=== PATIENT | male | born 1970 | race Caucasian/White ===

== ENCOUNTER 2016-07-30 19:58 | Emergency (ER) | payer BC ==
[~2016-07-30] VITALS: Ht 170.2 cm; Wt 65.8 kg
[~2016-07-30 19:58] MED LIST: FENT25DI22 TD; PERCOCET PO
[2016-07-30] MEDS ORDERED: NS 1,000 ML IV ONE (21:00)
[2016-07-30 21:30] VITALS: BP 140/97
--- NOTE | 2016-08-05 07:11 | ECGEPIP ---
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
== END 2016-07-30 21:47 | disposition home or self-care (01) ==
LOC: EDBD 19:58 → M ED 20:43
DX: Z04.8 Encounter for examination and observation for other specified reasons (principal)

== ENCOUNTER 2016-08-04 12:13 | Emergency (ER) | payer BC ==
[~2016-08-04] VITALS: Ht 170.2 cm; Wt 65.8 kg
[2016-08-04] MEDS ORDERED: ASPIRIN 81 MG CHEW TABLET PO ONE (14:15)
--- NOTE | 2016-08-04 14:46 | REP ---
Chest two views HISTORY: Chest pain Comparison: 05/11/1949 The lungs are clear. The heart is normal in size. The pulmonary vasculature is normal in appearance. The bony structure is intact. IMPRESSION: No acute disease. Signed by Mehul Kaur MD 08/04/2016 02:38 P
[2016-08-04 14:47] LABS: ALBUMIN 4.1 GM/DL (3.2-5.2); ALBUMIN/GLOBULIN RATIO 1.37 (1.00-1.93); ALKALINE PHOSPHATASE 53 U/L (45-117); ALT/SGPT 16 U/L (12-78); ANION GAP 7 MEQ/L (8-16); AST/SGOT 16 U/L (15-37); BILIRUBIN,DIRECT 0.3 MG/DL (0.0-0.2); BILIRUBIN,TOTAL 1.2 MG/DL (0.2-1.0); BLOOD UREA NITROGEN 13 MG/DL (7-18); CARBON DIOXIDE LEVEL 26 MEQ/L (21-32); CHLORIDE LEVEL 107 MEQ/L (98-107); GLOMERULAR FILTRATION RATE > 60.0 (>60); GLUCOSE, FASTING 116 MG/DL (70-105); POTASSIUM SERUM 3.8 MEQ/L (3.5-5.1); SODIUM LEVEL 140 MEQ/L (136-145); TOTAL PROTEIN 7.1 GM/DL (6.4-8.2)
[2016-08-04 15:20] LABS: BASO % 0.2 % (0.0-1.0); EOS % 0.3 % (0.0-3.0); LARGE UNSTAINED CELL # 0.1 K/mm3 (0.0-0.4); LARGE UNSTAINED CELL % 1.7 % (0.0-4.0); LYMPH # 0.9 K/mm3 (1.5-4.5); LYMPH % 17.4 % (24.0-44.0); MEAN CORPUSCULAR HEMOGLOBIN 31.6 pg (27.0-33.0); MEAN CORPUSCULAR HGB CONC 33.6 g/dl (32.0-36.5); MONO # 0.2 K/mm3 (0.0-0.8); MONO % 4.2 % (0.0-5.0); NEUTROPHILS % 76.2 % (36.0-66.0); PLATELET COUNT, AUTOMATED 197 k/mm3 (150-450); WHITE BLOOD COUNT 5.2 K/mm3 (4.0-10.0)
[2016-08-04] MEDS: NITROGLYCERIN 0.4 MG SUBL TABLET SL PRN ×2 (15:23→15:32)
[2016-08-04 15:32] VITALS: BP 129/75
[2016-08-04 20:18] VITALS: BP 114/79
--- NOTE | 2016-08-05 07:19 | ECGEPIP ---
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
--- NOTE | 2016-08-06 20:36 | ECGEPIP ---
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
== END 2016-08-04 20:20 | disposition home or self-care (01) ==
LOC: M ED 14:35
DX: R07.9 Chest pain, unspecified (principal)

== ENCOUNTER → 2017-05-07 | Outpatient (REF) | payer BC | LOC: M LAB REF 17:09 | PROVIDERS: ATTEND Physician Assistant Medical | DX: R50.9 Fever, unspecified (principal) ==

== ENCOUNTER → 2018-02-02 | Outpatient (REF) | payer BC ==
[2018-02-02 18:46] LABS: INFLUENZA A AMPLIFICATION NEGATIVE (NEGATIVE); INFLUENZA B AMPLIFICATION NEGATIVE (NEGATIVE)
== END ==
LOC: M LAB REF 17:14
DX: J11.1 Influenza due to unidentified influenza virus with other respiratory manifestations (principal)
CPT/HCPCS: 87502

== ENCOUNTER → 2018-02-22 | Outpatient (REF) | payer BC | LOC: M SFHCCLAY 14:31 | DX: Z13.220 Encounter for screening for lipoid disorders (principal); Z82.49 Family history of ischemic heart disease and other diseases of the circulatory system ==

== ENCOUNTER → 2018-03-06 | Outpatient (REF) | payer BC ==
[2018-03-06 18:45] LABS: ALBUMIN/GLOBULIN RATIO 1.14 (1.00-1.93); ALKALINE PHOSPHATASE 57 U/L (45-117); ALT/SGPT 23 U/L (12-78); ANION GAP 7 MEQ/L (8-16); AST/SGOT 16 U/L (7-37); BILIRUBIN,TOTAL 1.3 MG/DL (0.2-1.0); BLOOD UREA NITROGEN 17 MG/DL (7-18); CALCIUM LEVEL 8.5 MG/DL (8.5-10.1); CARBON DIOXIDE LEVEL 30 MEQ/L (21-32); CHLORIDE LEVEL 103 MEQ/L (98-107); CHOLESTEROL LEVEL 187 MG/DL (<200); CREATININE FOR GFR 0.92 MG/DL (0.70-1.30); GLOMERULAR FILTRATION RATE > 60.0 (>60); GLUCOSE, FASTING 86 MG/DL (70-100); HDL CHOLESTEROL 68 MG/DL (>40); LDL CHOLESTEROL 106 MG/DL (<100); NON-HDL-C 119 MG/DL; POTASSIUM SERUM 5.1 MEQ/L (3.5-5.1); SODIUM LEVEL 140 MEQ/L (136-145); TOTAL PROTEIN 7.5 GM/DL (6.4-8.2); TRIGLYCERIDES LEVEL 64 MG/DL (<150)
== END ==
LOC: M SFHCCLAY 11:02
DX: Z13.220 Encounter for screening for lipoid disorders (principal); Z82.49 Family history of ischemic heart disease and other diseases of the circulatory system
CPT/HCPCS: 80053

== ENCOUNTER → 2018-03-11 | Outpatient (CLI) | payer BC | LOC: M RAD 16:57 | DX: M25.562 Pain in left knee (principal) | CPT/HCPCS: 73564 ==

== ENCOUNTER → 2018-08-17 | Outpatient (CLI) | payer BC ==
[~2018-08-17] MED LIST changes: +OXYC1TAB23 PO; -PERCOCET PO
--- NOTE | 2018-08-17 16:30 | REP ---
Clinical: Lumbar. Technique: AP, lateral, bilateral oblique and coned-down views of the lumbosacral spine. Findings: Moderate multilevel degenerative changes include endplate sclerosis, osteophytosis, disc space narrowing and hypertrophic facet changes along with mild chronic dextroconvex scoliosis. No acute fracture / compression injury appreciated. Mild retrolisthesis at the L3-4 level of approximately 6 mm cannot be excluded. Impression: Moderate multilevel degenerative changes as noted above.
== END ==
LOC: M CLY 15:55
PROVIDERS: ATTEND Family Medicine
DX: M51.36 Other intervertebral disc degeneration, lumbar region (principal)

== ENCOUNTER 2019-02-04 10:04 | Emergency (ER) | payer BC ==
[~2019-02-04] VITALS: Ht 170.2 cm; Wt 64.8 kg
[2019-02-04] MEDS ORDERED: AMLO5TAB6 (10:43)
[2019-02-04] MEDS ORDERED: GABA-845 (10:43)
[2019-02-04 11:08] LABS: BASO % 0.3 % (0.0-1.0); EOS % 0.3 % (0.0-3.0); HEMATOCRIT 40.7 % (42.0-52.0); HEMOGLOBIN 13.9 g/dl (13.5-17.5); LYMPH # 1.3 10^3/uL (1.5-5.0); LYMPH % 22.3 % (24.0-44.0); MEAN CORPUSCULAR HEMOGLOBIN 33.2 pg (27.0-33.0); MEAN CORPUSCULAR HGB CONC 34.2 g/dl (32.0-36.5); MEAN CORPUSCULAR VOLUME 97.1 fl (80.0-96.0); MONO # 0.5 10^3/uL (0.0-0.8); MONO % 8.7 % (0.0-5.0); NEUTROPHILS % 68.2 % (36.0-66.0); PLATELET COUNT, AUTOMATED 258 10^3/uL (150-450); RED BLOOD COUNT 4.19 10^6/uL (4.30-6.10); WHITE BLOOD COUNT 5.9 10^3/uL (4.0-10.0)
[2019-02-04] MEDS ORDERED: MECLIZINE 25 MG TABLET PO ONE (11:15)
[2019-02-04 11:25] LABS: ALBUMIN 3.8 GM/DL (3.2-5.2); ALT/SGPT 24 U/L (12-78); BILIRUBIN,TOTAL 1.4 MG/DL (0.2-1.0); BLOOD UREA NITROGEN 14 MG/DL (7-18); CALCIUM LEVEL 9.1 MG/DL (8.5-10.1); CARBON DIOXIDE LEVEL 28 MEQ/L (21-32); CHLORIDE LEVEL 104 MEQ/L (98-107); CREATININE FOR GFR 0.79 MG/DL (0.70-1.30); GLOMERULAR FILTRATION RATE > 60.0 (>60); GLUCOSE, FASTING 100 MG/DL (70-100); POTASSIUM SERUM 3.9 MEQ/L (3.5-5.1); SODIUM LEVEL 138 MEQ/L (136-145); TOTAL PROTEIN 7.6 GM/DL (6.4-8.2)
--- NOTE | 2019-02-04 11:47 | REP ---
CT BRAIN WITHOUT IV CONTRAST: CT brain performed without IV contrast. Ventricles are normal in size and position with no midline shift or mass effect. Garnett/white differentiation is well maintained. There is no acute intracranial hemorrhage or extra-axial fluid collection. Bone window examination is unremarkable. Visualized paranasal sinuses are clear as are the visualized mastoid air cells. IMPRESSION: Negative noncontrast CT brain. Electronically Signed by Amos Garnett MD 02/05/2019 05:53 P
--- NOTE | 2019-02-04 15:51 | ECGEPIP ---
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
--- NOTE | 2019-02-04 16:06 | REPVR ---
PROCEDURE INFORMATION: Exam: MR Head Without Contrast Exam date and time: 02/04/2019 3:30 PM Clinical history: 48 years old, male; Dizziness; Additional info: Dizziness; Posterior headache TECHNIQUE: Imaging protocol: MR of the head without contrast. COMPARISON: CT Head without contrast 02/04/2019 11:05 AM FINDINGS: Brain: Normal. No acute infarct. No hemorrhage. No significant white matter disease. No edema. Ventricles: Normal. No ventriculomegaly. Bones/joints: Unremarkable. Soft tissues: Unremarkable. Sinuses: Normal as visualized. No acute sinusitis. Mastoid air cells: Normal as visualized. No mastoid effusion. Orbits: Unremarkable. IMPRESSION: No acute intracranial pathology. Electronically signed by: Obdulio Lane On 02/04/2019 16:06:02 PM
--- NOTE | 2019-02-04 16:09 | REPVR ---
PROCEDURE INFORMATION: Exam: MR Angiogram Head Without Contrast, Arteries Exam date and time: 02/04/2019 3:30 PM Clinical history: 48 years old, male; Dizziness and giddiness; Additional info: Dizziness; Posterior headache TECHNIQUE: Imaging protocol: MR angiogram head without contrast. Exam focused on the arteries. COMPARISON: CT Head without contrast 02/04/2019 11:05 AM FINDINGS: Right internal carotid artery: Unremarkable. Intracranial segment is patent with no significant stenosis. No aneurysm. Right anterior cerebral artery: Unremarkable. No occlusion or significant stenosis. No aneurysm. Right middle cerebral artery: Unremarkable. No occlusion or significant stenosis. No aneurysm. Right posterior cerebral artery: Unremarkable. No occlusion or significant stenosis. No aneurysm. Right vertebral artery: Unremarkable. No occlusion or significant stenosis. No aneurysm. Left internal carotid artery: Unremarkable. Intracranial segment is patent with no significant stenosis. No aneurysm. Left anterior cerebral artery: Unremarkable. No occlusion or significant stenosis. No aneurysm. Left middle cerebral artery: Unremarkable. No occlusion or significant stenosis. No aneurysm. Left posterior cerebral artery: Unremarkable. No occlusion or significant stenosis. No aneurysm. Left vertebral artery: Unremarkable. No occlusion or significant stenosis. No aneurysm. Basilar artery: Unremarkable. No occlusion or significant stenosis. No aneurysm. IMPRESSION: No acute findings. Electronically signed by: Obdulio Lane On 02/04/2019 16:08:43 PM
[2019-02-04] MEDS ORDERED: ZYRTTAB8 PO (16:31)
[2019-02-04] MEDS ORDERED: FLON1SPR NARES (16:31)
[2019-02-04] MEDS ORDERED: DEBR6.5S4 AD (16:31)
[2019-02-04 16:36] VITALS: BP 128/79
== END 2019-02-04 16:50 | disposition home or self-care (01) ==
LOC: M ED 10:04
DX: H65.01 Acute serous otitis media, right ear (principal); H81.391 Other peripheral vertigo, right ear; H61.21 Impacted cerumen, right ear; I10 Essential (primary) hypertension; Z79.899 Other long term (current) drug therapy

== ENCOUNTER → 2019-05-03 | Outpatient (CLI) | payer BC ==
[~2019-05-03] MED LIST changes: +AMLO5TAB6; +DEBR6.5S4 AD; +FLON1SPR NARES; +GABA-845; +ZYRTTAB8 PO
--- NOTE | 2019-05-16 01:20 | ECWPNPC ---
PATIENT NAME: MAXIME MCKEON : 1970 GENDER: MALE VISIT DATE: 05/03/2019 DISCHARGE DATE: 05/03/19 1446 VISIT LOCKED DATE TIME: PHYSICIAN: FREDERICK SCHWARTZ RESOURCE: FREDERICK SCHWARTZ REASON FOR APPOINTMENT 1. 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 SURGICAL HISTORY UPPER LEFT LOBECTOMY 2010 COLLAPSED LUNG LEFT SIDE 2008 FAMILY HISTORY FATHER: MOTHER: ALIVE 70 YRS, BLADDER CANCER, EMPHYSEMA, DIAGNOSED WITH HYPERTENSION, OTHER MALIGNANT NEOPLASM OF UNSPECIFIED SITE SIBLINGS: ALIVE SON(S): ALIVE DAUGHTER(S): ALIVE PATERNAL GRAND FATHER: PATERNAL GRAND MOTHER: MATERNAL GRAND FATHER: , OTHER MALIGNANT NEOPLASM OF UNSPECIFIED SITE MATERNAL GRAND MOTHER: , UNSPECIFIED HEART DISEASE 2 BROTHER(S) - HEALTHY. 3 SON(S) , 2 DAUGHTER(S) - HEALTHY. FATHER WHEN PATIENT WAS 3: MVA: HIT BY TRAIN.\\\\NCOUSIN\\\\\\'S DAUGHTER: COLON CANCER: DIAGNOSED AT AGE 24MOM WITH BLADDER CANCER. SOCIAL HISTORY GENERAL: TOBACCO USE ARE YOU A:FORMER SMOKER QUIT IN 2008 HOW LONG HAS IT BEEN SINCE YOU LAST SMOKED?5-10 YEARS VAPORNO E-CIGARETTENO HIV / HEP-C SCREENING HIV TEST OFFERED TO PATIENT:YES DATE OFFERED:07/21/2018 TEST ACCEPTED:NO HEP-C TEST OFFERED TO PATIENT:YES DATE OFFERED:07/21/2018 REASON:PATIENT DECLINED -BLOOD DONOR-ALREADY TESTED TEST ACCEPTED:NO REASON:PATIENT DECLINED -BLOOD DONOR-ALREADY TESTED BROCHURE PROVIDED TO PATIENTNO OTHERS AT HOME: FATHER, MOTHER, CHILD, OTHER NON-RELATIVE. EDUCATION LEVEL OF EDUCATION:FINISHED HIGH SCHOOL DIET: REGULAR. LANGUAGE LANGUAGES SPOKEN:[place]OV[place] DOMESTIC VIOLENCE DO YOU FEEL SAFE IN YOUR ENVIRONMENT?YES RECREATIONAL DRUG USE DRUG USE?NO EXERCISE: NO REGULAR EXERCISE. LEARNING BARRIERS / SPECIAL NEEDS CHANGE FROM LAST VISIT?NO BARRIERS TO LEARNING?NO HEARING IMPAIRED?NO VISION IMPAIRED?YES :CORRECTIVE LENSES -READERS COGNITIVELY IMPAIRED?NO READINESS TO LEARN?YES LEARNING PREFERENCES?NO LEARNING CAPABILITIES PRESENT?YES EMOTIONAL BARRIERS?NO SPECIAL DEVICES?NO VOICE INTERCEPT TECHNICIAN NEEDED?NO PAIN CLINIC PFS, CLERGY, PUBLIC HEALTH REFERRALS HAS THE PATIENT BEEN EDUCATED REGARDING HIS/HER PLAN OF CARE?YES HAS THE PATIENT BEEN EDUCATED REGARDING PAIN, THE RISK FOR PAIN, THE IMPORTANCE OF EFFECTIVE PAIN MANAGEMENT, AND THE PAIN ASSESSMENT PROCESS?YES LATEX QUESTIONNAIRE LATEX ALLERGY : HAVE YOU EVER DEVELOPED ANY TYPE OF REACTION AFTER HANDLING LATEX PRODUCTS SUCH RUBBER GLOVES, CONDOMS, DIAPHRAGMS, BALLOONS, SOCKS, OR UNDERWEAR?NO LATEX ALLERGY : HAVE YOU EVER DEVELOPED ANY TYPE OF REACTION DURING OR AFTER DENTAL APPOINTMENT, VAGINAL/RECTAL EXAMINATION, SURGICAL PROCEDURE, OR ANY OTHER EXPOSURE?NO LATEX RISK : HAVE YOU EVER HAD ANY DIFFICULTY BREATHING OR HIVES AFTER EATING OR HANDLING ANY FRUITS, OR VEGETABLES; SUCH KIWI, BANANAS, STONE FRUITS, OR CHESTNUTSNO LATEX RISK : DO YOU HAVE A PREVIOUS PERSONAL HISTORY OF MORE THAN NINE SURGERIES, SPINA BIFIDA, OR REPEATED CATHERIZATIONS? NO LATEX RISK : ARE YOU FREQUENTLY EXPOSED TO LATEX PRODUCTS IN YOUR OCCUPATION?NO DATE ASKED : 05/02/2019 CAFFEINE CAFFEINE USE?YES HOW OFTEN AND HOW MUCH? -1 1/2 CUPS COFFEE IN AM ADVANCE DIRECTIVE ADVANCE DIRECTIVE DISCUSSED WITH PATIENT:YES PT HAS NO ADVANCED DIRECTIVES, WOULD LIKE INFORMATION GIVEN TO HIM AT HIS APPOINTMENT. 05/02/19 [facility] JUDAISM [id number] CONFUCIANISM MARITAL STATUS: .. 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 SEXUAL HX HAD SEX IN THE LAST 12 MONTHS (VAGINAL, ORAL, OR ANAL)?YES WITHWOMEN ONLY PREVENTION STRATEGIES DISCUSSED:OTHER USE PROTECTION?NO HAVE YOU EVER HAD AN STD?NO NEW PATIENT CONSULT 05/02/19 LAS. HOSPITALIZATION/MAJOR DIAGNOSTIC PROCEDURE W/SURGERY SPINAL MENINGITIS AGE 22 REVIEW OF SYSTEMS REVIEWED BY: PROVIDER: FREDERICK SHAHID . CONSTITUTIONAL: ANY CHANGE IN YOUR MEDICAL CONDITION? NO . CHILLS NO . FEVER NO . INFECTION: DO YOU HAVE NEW INFECTIONS? NO . DO YOU HAVE HISTORY OF MRSA? NO . MUSCULOSKELETAL: ANY NEW PATTERNS OF PAIN OR NUMBNESS? NO . SYTEMIC LUPUS NO . GASTROENTEROLOGY: ANY NEW CHANGE IN BOWEL CONTROL? NO . BARRETTS ESOPHAGUS NO . CIRRHOSIS NO . HEPATITIS NO . LIVER FAILURE NO . ACID REFLUX NO . UNEXPLAINED WEIGHT LOSS NO . GENITOURINARY: ANY NEW CHANGE IN BLADDER CONTROL? NO . IS THERE A CHANCE YOU COULD BE ? NO . HEMATOLOGY/LYMPH: DO YOU TAKE ANY BLOOD THINNERS? (FOR EXAMPLE- COUMADIN, PLAVIX, AGGRENOX, PLATEL, PRADAXA, OR XARELTO) NO . WHEN WAS YOUR LAST DOSE? DATE: TIME: . LOW PLATELET COUNT NO . SICKLE CELL DISEASE NO . VON WILLIEBRANDS NO . FACTOR V LEIDEN NO . THALLASEMIA NO . ANEMIA NO . EASY BRUISING NO . NEUROLOGY: HAVE YOU FALLEN IN THE PAST 12 MONTHS? NO . ANY NEW EXTREMITY NUMBNESS OR WEAKNESS? NO . HEAD INJURY NO . DEMENTIA NO . CEREBRAL PALSY NO . MULTIPLE SCLEROSIS NO . DIZZINESS NO . HEADACHE NO . STROKES NO . VERTIGO NO . CARDIOLOGY: DO YOU HAVE A PACEMAKER OR DEFIBRILLATOR? NO . ANGINA NO . HEART ATTACK NO . HEART SURGERY NO . CONGESTIVE HEART FAILURE/FLUID OVERLOAD NO . CHEST PAIN NO . HIGH BLOOD PRESSURE ON MEDICATION(S) . IRREGULAR HEART BEAT NO . RESPIRATORY: HAVE YOU BEEN SICK IN THE PAST WEEK? NO . FEVER NO . FLU LIKE SYMPTOMS? NO . CPAP NO . BYPAP NO . ASTHMA NO . EMPHYSEMA NO . CHRONIC LUNG DISEASES YES, COPD . SHORTNESS OF BREATH ON EXERTION NO . COUGH NO . SNORING NO . INTEGUMENTARY: DO YOU HAVE ANY RASHES OR OPEN SORES? NO . ALLERGIC/IMMUNO: ARE YOU ALLERGIC TO IV DYE? NO . ANY NEW ALLERGIES? NO . PSYCHIATRIC: DO YOU HAVE THOUGHTS OF HURTING YOURSELF OR SOMEONE ELSE? NO . ARE YOU ABUSED, NEGLECTED, OR IN AN UNSAFE ENVIRONMENT? NO . ENDOCRINOLOGY: ARE YOU DIABETIC? NO . THYROID DISORDER NO . OTHER: DO YOU NEED ANY PRESCRIPTIONS? NO . IF YES, PLEASE LIST: ____ . ANY NEW PROBLEMS WITH YOUR MEDICATIONS? NO . WHEN DID YOU LAST EAT? ____ . WHEN DID YOU LAST DRINK? ____ . WHAT DID YOU LAST DRINK? ____ . NAME OF PERSON DRIVING YOU HOME? ____ . DO YOU HAVE ANY OTHER QUESTIONS OR CONCERNS NO . VITAL SIGNS WT 148.8 LBS, HT 5'7", BMI 23.30 INDEX, BP 155/85 MM HG, HR 68 /MIN, RR 18 /MIN, TEMP 98.3 F, OXYGEN SAT % 99%, NA INITIALS SC 13:41, REVIEWED BY: ITZEL. EXAMINATION GENERAL EXAMINATION: GENERAL AWAKE,ALERT ,PLEASANT . PSYCH AFFECT NORMAL . LUNGS: LUNG MOSER ARE CLEAR TO AUSCULTATION BILATERALLY. GOOD MOVEMENT OF AIR . HEART: S1, S2 IN A REGULAR RATE AND RHYTHM. NO SIGNIFICANT MURMURS, RUBS OR GALLOPS NOTED . MUSCULOSKELETAL: PALPATION: POSITIVE FOR PAIN OVER L/S SPINE. POSITIVE FOR PAIN OVER L/S PARSPINALS. NEUROLOGIC EXAM: NORMAL SENSATION LIGHT TOUCH BILAT. LOWER EXTREMITIES. ASSESSMENTS RADICULAR PAIN OF LUMBOSACRAL REGION - M54.17 (PRIMARY) TREATMENT RADICULAR PAIN OF LUMBOSACRAL REGION START TRAMADOL HCL TABLET, 50 MG, 1 TO 2 TAB, ORALLY, ONCE A DAY MDD2, 30 DAYS, 45, REFILLS 1 X RAY : SPINES, LUMBAR [id number] NOTES: PT 2XWK X6WKS LOW BACK PAIN W LEFT LEG RADICULAR SYMPTOMS. PROCEDURE CODES FA211 ESTABILISHED PATIENT [facility] CHARGE DISPOSITION & COMMUNICATION FOLLOW UP 6 WEEKS (REASON: PT/XRAY REVIEW/MED MGMNT) ELECTRONICALLY SIGNED BY ZEHRA VALENCIA ON 05/15/2019 AT 03:10 PM EST DISCLAIMER : THIS IS A VISIT SUMMARY EXTRACTED FROM THE [employer] CHART. IT IS NOT A COPY OF THE [employer] PROGRESS NOTE. MTDD
== END ==
LOC: M PAIN 13:30
PROVIDERS: ATTEND Nurse Practitioner Family
DX: M54.17 Radiculopathy, lumbosacral region (principal)

== ENCOUNTER → 2019-05-15 | Outpatient (CLI) | payer BC ==
--- NOTE | 2019-05-15 17:47 | REP ---
Clinical: Radicular pain. Technique: AP, lateral, bilateral oblique and coned-down views of the lumbosacral spine. Findings: Moderate/early advanced multilevel degenerative disc osteophyte complexes are appreciated. Alignment is maintained. There is no evidence for acute fracture / compression injury or subluxation. Findings include osteophytosis, endplate sclerosis, hypertrophic facet changes and disc space narrowing. Atherosclerotic disease to the aorta noted. Impression: 1. Multilevel degenerative spondylosis. Electronically Signed by Nash Morgan MD 05/15/2019 05:40 P
== END ==
LOC: M LRY 16:43
PROVIDERS: ATTEND Nurse Practitioner Family
DX: M54.17 Radiculopathy, lumbosacral region (principal)

== ENCOUNTER → 2019-06-08 | Outpatient (CLI) | payer BC ==
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
== END ==
LOC: M PAIN 14:30
PROVIDERS: ATTEND Nurse Practitioner Family
DX: M79.18 Myalgia, other site (principal); J44.9 Chronic obstructive pulmonary disease, unspecified; I10 Essential (primary) hypertension; Z87.891 Personal history of nicotine dependence; Z79.891 Long term (current) use of opiate analgesic; Z79.899 Other long term (current) drug therapy

== ENCOUNTER → 2019-07-15 | Outpatient (REF) | payer BC | LOC: M SFHCLERA 16:00 | PROVIDERS: ATTEND Nurse Practitioner Family | DX: R68.89 Other general symptoms and signs (principal) ==

== ENCOUNTER → 2019-07-21 | Outpatient (CLI) | payer BC ==
[~2019-07-21] MED LIST changes: +BUPIVACAINE HCL 0.25% 30 ML VIAL As Ordered ONE; +NORCO, ANEXSIA 5/325MG TABLET (HYDROcodone/ACETAMINOPHEN) As Ordered ONE; +TRIAMCINOLONE ACETONIDE SUSP 40 MG/ML VIAL (J3301) As Ordered ONE; +diazePAM 2 MG TAB As Ordered ONE
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
== END ==
LOC: M PAIN 14:15
PROVIDERS: ATTEND Anesthesiology
DX: M79.18 Myalgia, other site (principal)

== ENCOUNTER → 2019-08-16 | Outpatient (CLI) | payer BC ==
[~2019-08-16] MED LIST changes: -BUPIVACAINE HCL 0.25% 30 ML VIAL As Ordered ONE; -NORCO, ANEXSIA 5/325MG TABLET (HYDROcodone/ACETAMINOPHEN) As Ordered ONE; -TRIAMCINOLONE ACETONIDE SUSP 40 MG/ML VIAL (J3301) As Ordered ONE; -diazePAM 2 MG TAB As Ordered ONE
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
== END ==
LOC: M PAIN 13:30
PROVIDERS: ATTEND Nurse Practitioner Family
DX: M79.18 Myalgia, other site (principal); J44.9 Chronic obstructive pulmonary disease, unspecified; I10 Essential (primary) hypertension; Z87.891 Personal history of nicotine dependence; Z79.899 Other long term (current) drug therapy

== ENCOUNTER → 2019-09-20 | Outpatient (CLI) | payer BC ==
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
== END ==
LOC: M PAIN 10:30
PROVIDERS: ATTEND Nurse Practitioner Family
DX: M79.18 Myalgia, other site (principal); M54.42 Lumbago with sciatica, left side; J44.9 Chronic obstructive pulmonary disease, unspecified; I10 Essential (primary) hypertension; Z87.891 Personal history of nicotine dependence; Z79.899 Other long term (current) drug therapy

== ENCOUNTER → 2019-10-07 | Outpatient (CLI) | payer BC | LOC: M LABSMTC 07:59 | PROVIDERS: ATTEND Anesthesiology | DX: Z03.818 Encounter for observation for suspected exposure to other biological agents ruled out (principal); Z11.59 Encounter for screening for other viral diseases ==

== ENCOUNTER → 2019-10-10 | Outpatient (CLI) | payer BC ==
[~2019-10-10] MED LIST changes: +BUPIVACAINE HCL 0.25% 10ML VIAL As Ordered ONE; +BUPIVACAINE HCL 0.25% 30ML VIAL As Ordered ONE; +NORCO, ANEXSIA 5/325MG TABLET (HYDROcodone/ACETAMINOPHEN) As Ordered ONE; +dexameTHASONE 10MG/1ML VIAL PRES.FREE (J1100 PER 1MG) As Ordered ONE; +diazePAM 5 MG TAB As Ordered ONE
--- NOTE | 2019-10-11 01:33 | ECWPNPC ---
PATIENT NAME: MAXIME MCKEON : 1970 GENDER: MALE VISIT DATE: 10/10/2019 DISCHARGE DATE: 10/10/19 1534 VISIT LOCKED DATE TIME: PHYSICIAN: TOMASZ PHILIP MD RESOURCE: TOMASZ PHILIP MD REASON FOR APPOINTMENT 1. TRIGGER POINT INJECTIONS TO RIGHT LUMBAR PARASPINAL AREA. HISTORY OF PRESENT ILLNESS HISTORY OF PRESENT ILLNESS: PAIN THE PATIENT DESCRIBES THE PAIN... FALL RISK SCREENING: SCREENING :NO FALLS REPORTED IN THE LAST YEAR CURRENT MEDICATIONS TAKING AMLODIPINE BESYLATE 10 MG TABLET 1 TABLET ORALLY ONCE A DAY, NOTES: 10/10/19529 TAKING EXCEDRIN MIGRAINE 250-250-65 MG TABLET 2 TABLETS ORALLY ONCE DAILY NEEDED, NOTES: MORE THAN 1 MONTH AGO TAKING VIAGRA 100 MG TABLET 1 TABLET NEEDED ORALLY ONCE A DAY, NOTES: 10/08/19 TAKING GABAPENTIN 600 MG TABLET 1 TABLET ORALLY BID, NOTES: 10/10/19529 TAKING OXYCODONE HCL 5 MG TABLET 1 TABLET NEEDED ORALLY Q8H PRN FOR SEVERE PAIN EPISODES #45 TAB SHOULD LAST 30 DAYS, NOTES: 10/10/19529 TAKING MELOXICAM 15 MG TABLET 1 TABLET ORALLY ONCE A DAY, NOTES: 529 MEDICATION LIST REVIEWED AND RECONCILED WITH THE PATIENT PAST MEDICAL HISTORY COPD HTN 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 SURGICAL HISTORY UPPER LEFT LOBECTOMY 2010 COLLAPSED LUNG LEFT SIDE 2008 ALL TEETH EXTRACTED 2015 FAMILY HISTORY FATHER: MOTHER: ALIVE 70 YRS, BLADDER CANCER, EMPHYSEMA, DIAGNOSED WITH HYPERTENSION, OTHER MALIGNANT NEOPLASM OF UNSPECIFIED SITE SIBLINGS: ALIVE SON(S): ALIVE DAUGHTER(S): ALIVE PATERNAL GRAND FATHER: PATERNAL GRAND MOTHER: MATERNAL GRAND FATHER: , OTHER MALIGNANT NEOPLASM OF UNSPECIFIED SITE MATERNAL GRAND MOTHER: , UNSPECIFIED HEART DISEASE 2 BROTHER(S) - HEALTHY. 3 SON(S) , 2 DAUGHTER(S) - HEALTHY. FATHER WHEN PATIENT WAS 3: MVA: HIT BY TRAIN. COUSIN'S DAUGHTER: COLON CANCER: DIAGNOSED AT AGE 24MOM WITH BLADDER CANCER. SOCIAL HISTORY GENERAL: TOBACCO USE ARE YOU A:FORMER SMOKER QUIT IN 2008 HOW LONG HAS IT BEEN SINCE YOU LAST SMOKED?> 10 YEARS VAPORNO E-CIGARETTENO LATEX QUESTIONNAIRE LATEX ALLERGY : HAVE YOU EVER DEVELOPED ANY TYPE OF REACTION AFTER HANDLING LATEX PRODUCTS SUCH RUBBER GLOVES, CONDOMS, DIAPHRAGMS, BALLOONS, SOCKS, OR UNDERWEAR?NO LATEX ALLERGY : HAVE YOU EVER DEVELOPED ANY TYPE OF REACTION DURING OR AFTER DENTAL APPOINTMENT, VAGINAL/RECTAL EXAMINATION, SURGICAL PROCEDURE, OR ANY OTHER EXPOSURE?NO DATE ASKED : 07/21/2019 LATEX RISK : HAVE YOU EVER HAD ANY DIFFICULTY BREATHING OR HIVES AFTER EATING OR HANDLING ANY FRUITS, OR VEGETABLES; SUCH KIWI, BANANAS, STONE FRUITS, OR CHESTNUTSNO LATEX RISK : DO YOU HAVE A PREVIOUS PERSONAL HISTORY OF MORE THAN NINE SURGERIES, SPINA BIFIDA, OR REPEATED CATHERIZATIONS? NO LATEX RISK : ARE YOU FREQUENTLY EXPOSED TO LATEX PRODUCTS IN YOUR OCCUPATION?NO ALCOHOL SCREENING DID YOU HAVE A DRINK CONTAINING ALCOHOL IN THE PAST YEAR?YES HOW OFTEN DID YOU HAVE SIX OR MORE DRINKS ON ONE OCCASION IN THE PAST YEAR?NEVER (0 POINTS) HOW MANY DRINKS DID YOU HAVE ON A TYPICAL DAY WHEN YOU WERE DRINKING IN THE PAST YEAR?1 OR 2 (0 POINTS) HOW OFTEN DID YOU HAVE A DRINK CONTAINING ALCOHOL IN THE PAST YEAR?TWO TO THREE TIMES PER WEEK (3 POINTS) POINTS3 INTERPRETATIONNEGATIVE RECREATIONAL DRUG USE DRUG USE?NO DENIES 10/10/19 CAFFEINE CAFFEINE USE?YES HOW OFTEN AND HOW MUCH? -1 1/2 CUPS COFFEE IN AM SEXUAL HX HAD SEX IN THE LAST 12 MONTHS (VAGINAL, ORAL, OR ANAL)?YES WITHWOMEN ONLY PREVENTION STRATEGIES DISCUSSED:OTHER USE PROTECTION?NO HAVE YOU EVER HAD AN STD?NO HIV / HEP-C SCREENING HIV TEST OFFERED TO PATIENT:YES DATE OFFERED:07/21/2018 TEST ACCEPTED:NO HEP-C TEST OFFERED TO PATIENT:YES DATE OFFERED:07/21/2018 REASON:PATIENT DECLINED -BLOOD DONOR-ALREADY TESTED TEST ACCEPTED:NO REASON:PATIENT DECLINED -BLOOD DONOR-ALREADY TESTED BROCHURE PROVIDED TO PATIENTNO CATHOLIC [id number] [employer]IST LANGUAGE LANGUAGES SPOKEN:SCOTTISH EDUCATION LEVEL OF EDUCATION:FINISHED HIGH SCHOOL LEARNING BARRIERS / SPECIAL NEEDS CHANGE FROM LAST VISIT?NO 09/20/2019 BARRIERS TO LEARNING?NO HEARING IMPAIRED?NO VISION IMPAIRED?YES COGNITIVELY IMPAIRED?NO :CORRECTIVE LENSES -READERS READINESS TO LEARN?YES LEARNING PREFERENCES?NO LEARNING CAPABILITIES PRESENT?YES EMOTIONAL BARRIERS?NO SPECIAL DEVICES?NO DRY CHAIN WORKER NEEDED?NO DOMESTIC VIOLENCE DO YOU FEEL SAFE IN YOUR ENVIRONMENT?YES 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 DIET: REGULAR. EXERCISE: NO REGULAR EXERCISE. MARITAL STATUS: .. OTHERS AT HOME: FATHER, MOTHER, CHILD, OTHER NON-RELATIVE. NEW PATIENT PAIN DIARY TODAY'S VISITNOTES 10/10/2019 PATIENT DESCRIBES PAIN :HAVE IT ALL THE TIME, OTHER PRESSURE, PINCHING, TIGHTNESS FROM 0-10, WHAT LEVEL IS YOUR PAIN TODAY?8 PRECIPITATING FACTORS SITTING, PUSHING, PULLING ALLEVIATING FACTORS HEAT, MEDICATION PAIN CLINIC PFS, CLERGY, PUBLIC HEALTH REFERRALS HAS THE PATIENT BEEN EDUCATED REGARDING HIS/HER PLAN OF CARE?YES HAS THE PATIENT BEEN EDUCATED REGARDING PAIN, THE RISK FOR PAIN, THE IMPORTANCE OF EFFECTIVE PAIN MANAGEMENT, AND THE PAIN ASSESSMENT PROCESS?YES ADVANCE DIRECTIVE ADVANCE DIRECTIVE DISCUSSED WITH PATIENT:YES PT WAS GIVEN INFORMATION ON HCP LAST VISIT AND HE WILL BRING IT IN AND HAVE US WITNESS IT. HOSPITALIZATION/MAJOR DIAGNOSTIC PROCEDURE W/SURGERY SPINAL MENINGITIS AGE 22 REVIEW OF SYSTEMS REVIEWED BY: PROVIDER: TOMASZ PHILIP MD . CONSTITUTIONAL: ANY CHANGE IN YOUR MEDICAL CONDITION? NO . CHILLS NO . FEVER NO . INFECTION: DO YOU HAVE NEW INFECTIONS? NO . DO YOU HAVE HISTORY OF MRSA? NO . MUSCULOSKELETAL: ANY NEW PATTERNS OF PAIN OR NUMBNESS? NO . GASTROENTEROLOGY: ANY NEW CHANGE IN BOWEL CONTROL? NO . GENITOURINARY: ANY NEW CHANGE IN BLADDER CONTROL? NO . IS THERE A CHANCE YOU COULD BE ? NO . HEMATOLOGY/LYMPH: DO YOU TAKE ANY BLOOD THINNERS? (FOR EXAMPLE- COUMADIN, PLAVIX, AGGRENOX, PLATEL, PRADAXA, OR XARELTO) NO . WHEN WAS YOUR LAST DOSE? DATE: TIME: . NEUROLOGY: HAVE YOU FALLEN IN THE PAST 12 MONTHS? NO . ANY NEW EXTREMITY NUMBNESS OR WEAKNESS? NO . CARDIOLOGY: DO YOU HAVE A PACEMAKER OR DEFIBRILLATOR? NO . RESPIRATORY: HAVE YOU BEEN SICK IN THE PAST WEEK? NO . FEVER NO . FLU LIKE SYMPTOMS? NO . COUGH NO . INTEGUMENTARY: DO YOU HAVE ANY RASHES OR OPEN SORES? NO . ALLERGIC/IMMUNO: ARE YOU ALLERGIC TO IV DYE? NO . ANY NEW ALLERGIES? NO . PSYCHIATRIC: DO YOU HAVE THOUGHTS OF HURTING YOURSELF OR SOMEONE ELSE? NO . ARE YOU ABUSED, NEGLECTED, OR IN AN UNSAFE ENVIRONMENT? NO . ENDOCRINOLOGY: ARE YOU DIABETIC? NO . OTHER: DO YOU NEED ANY PRESCRIPTIONS? NO . IF YES, PLEASE LIST: ____ . ANY NEW PROBLEMS WITH YOUR MEDICATIONS? NO . WHEN DID YOU LAST EAT? 10/10/19 0630 . WHEN DID YOU LAST DRINK? 10/10/19 1130 . WHAT DID YOU LAST DRINK? WATER . NAME OF PERSON DRIVING YOU HOME? RADHA HERNANDEZ - STEPFATHER . DO YOU HAVE ANY OTHER QUESTIONS OR CONCERNS NO . VITAL SIGNS WT 144.4 LBS, HT 5'7", BMI 22.61 INDEX, BP 114/71 MM HG, HR 71 /MIN, RR 17 /MIN, TEMP 97.1 F, OXYGEN SAT % 97%, NA INITIALS MS 1327, REVIEWED BY: LS. EXAMINATION GENERAL EXAMINATION: THE PATIENT IS ALERT, ORIENTED TIMES THREE AND COOPERATIVE. HEART SHOWS REGULAR RHYTHM, NO MURMURS AND NO GALLOPS. LUNGS ARE CLEAR TO AUSCULTATION. ASSESSMENTS MYALGIA, OTHER SITE - M79.18 (PRIMARY) PROCEDURES PN TRIGGER POINT INJECTION WITH STEROIDS PRE PROCEDURE DIAGNOSIS 1. MYALGIA 2. PAIN AT RIGHT LOWER BACK AREA POST PROCEDURE DIAGNOSIS 1. MYALGIA 2. PAIN AT RIGHT LOWER BACK AREA PROCEDURE TRIGGER POINT INJECTION AT RIGHT LOWER BACK AREA SURGEON DR. TOMASZ PHILIP ADVERTISING TRAFFIC MANAGER NONE ANESTHESIA LOCAL PRE PROCEDURE NOTE THE PATIENT HAS A HISTORY OF CHRONIC PAIN AT THE RIGHT LOWER BACK AREA. I EVALUATED THE PATIENT AND REVIEWED THE CHART. THERE IS EVIDENCE OF BANDS OF TISSUE WITH RESTRICTION OF MOVEMENT AND PRESENCE OF TRIGGER POINT AT THE RIGHT LOWER BACK AREA. I WENT OVER THE RISKS, ALTERNATIVES, AND BENEFITS ASSOCIATED WITH THIS PROCEDURE. I DISCUSSED THAT THE USE OF STEROIDS MAY CONTRIBUTE TO IMMUNOSUPPRESSION OF THE PATIENT'S BODY AGAINST INFECTIONS SUCH THE GODINEZ VIRUS, COVID-19. THE PATIENT IS AWARE OF THE POTENTIAL COMPLICATIONS ASSOCIATED WITH AN INFECTION OF THIS VIRUS INCLUDING . THE PATIENT WOULD LIKE TO PROCEED AND GIVE CONSENT TO PERFORMED THE PROCEDURE. THE PATIENT DENIES UNEXPLAINABLE WEIGHT LOSS, FEVER, CHILLS, OR NEW CHANGES IN URINARY OR BOWEL CONTROL. THE PATIENT IS COVID-19 NEGATIVE DESCRIPTION OF PROCEDURE THE PATIENT WAS BROUGHT TO THE PROCEDURE ROOM AND PLACED IN THE SITTING POSITION. THE AREA WAS CLEANED WITH ALCOHOL. THE PROCEDURE WAS DONE USING ASEPTIC STERILE TECHNIQUE. I CHECKED LATERALITY AND THE LEVEL WHERE THE PROCEDURE WAS GOING TO BE PERFORMED WITH THE PATIENT AND THE SUPPORTING STAFF AT THE MOMENT OF THE TIME OUT IN THE PROCEDURE ROOM. USING A 25-GAUGE NEEDLE, TRIGGER POINTS WERE INJECTED AT THE RIGHT LOWER BACK AREA WITH A TOTAL OF 40 ML OF BUPIVACAINE 0.25% AND DEXAMETHASONE 10 MG. THERE WAS NO EVIDENCE OF BLOOD, PARESTHESIA OR CEREBROSPINAL FLUID DURING THE PROCEDURE. THE PATIENT WAS SENT TO THE RECOVERY ROOM. THE PATIENT WAS MOVING THE EXTREMITIES AND DOING WELL. THERE WAS NO COMPLICATION DURING THE PROCEDURE POST PROCEDURE NOTE THE PROCEDURE DONE WAS DISCUSSED WITH THE PATIENT. THE PATIENT WILL BE SEEN IN A FOLLOW UP IN THE NEXT FEW WEEKS. I AM LOOKING FOR LONG LASTING PAIN RELIEF FOR THE PATIENT WITH THIS INTERVENTION. INSTRUCTIONS WERE GIVEN, QUESTIONS WERE ANSWERED, AND THE PATIENT EXPRESSED UNDERSTANDING AND AGREES WITH THE PLAN. THE PATIENT IS AWARE TO STAY HOME FOR THE NEXT WEEK, IF POSSIBLE, DUE TO COVID-19. I, ERIC ESCAMILLA, DOCUMENTED THE ABOVE INFORMATION ACTING A SCRIBE FOR DR. PHILIP. I HAVE REVIEWED THE ABOVE DOCUMENT, WRITTEN BY ERIC ESCAMILLA, CUSTOMS EXAMINER, AND I VERIFY THAT IT IS ACCURATE PROCEDURE CODES 87824 INJ TRIGGER POINT 1/2 MUSCL DISPOSITION & COMMUNICATION FOLLOW UP F/UP WITH DATABASE MARKETING SPECIALIST (REASON: POST TPI RIGHT LOWER BACK) ELECTRONICALLY SIGNED BY TOMASZ PHILIP MD, MD ON 10/10/2019 AT 05:18 PM EDT DISCLAIMER : THIS IS A VISIT SUMMARY EXTRACTED FROM THE [employer] CHART. IT IS NOT A COPY OF THE [employer] PROGRESS NOTE. DAVID
== END ==
LOC: M PAIN 13:45
PROVIDERS: ATTEND Anesthesiology
DX: M79.18 Myalgia, other site (principal)
CPT/HCPCS: 20552; J1100

== ENCOUNTER → 2019-10-26 | Outpatient (CLI) | payer BC ==
[~2019-10-26] MED LIST changes: -BUPIVACAINE HCL 0.25% 10ML VIAL As Ordered ONE; -BUPIVACAINE HCL 0.25% 30ML VIAL As Ordered ONE; -NORCO, ANEXSIA 5/325MG TABLET (HYDROcodone/ACETAMINOPHEN) As Ordered ONE; -dexameTHASONE 10MG/1ML VIAL PRES.FREE (J1100 PER 1MG) As Ordered ONE; -diazePAM 5 MG TAB As Ordered ONE
--- NOTE | 2019-10-31 03:35 | ECWPNPC ---
PATIENT NAME: MAXIME MCKEON : 1970 GENDER: MALE VISIT DATE: 10/26/2019 DISCHARGE DATE: 10/26/19 1356 VISIT LOCKED DATE TIME: PHYSICIAN: FREDERICK SCHWARTZ RESOURCE: FREDERICK SCHWARTZ REASON FOR APPOINTMENT 1. POST TPI/REVIEW MRI IN OFFICE HISTORY OF PRESENT ILLNESS GENERAL: HERE FOR POST PROCEDURE FOLLOW-UP. HAD TRIGGER POINT INJECTION RIGHT LOW BACK ON 10/10/2019. HARD TO RETRIEVE HISTORY, BUT FROM WHAT I GATHER HE HAS HAD SOME IMPROVEMENT IN THE RIGHT LOW BACK AREA. MRI OF THE LS-SPINE I HAD ORDERED IS REVIEWED. THIS IS SHOWING MULTILEVEL LUMBAR FACET ARTHROPATHY WITH BOTH CENTRAL CANAL AND NEURAL FORAMINAL ENCROACHMENT, LEFT GREATER THAN RIGHT. REVIEWED TREATMENT OPTIONS. -. FALL RISK SCREENING: SCREENING :ONE FALL WITHOUT INJURY IN THE PAST YEAR PAIN SCREENING: PATIENT HAS A COMPLAINT OF ACUTE OR CHRONIC PAIN :YES 10/26/19 INTENSITY OF PAIN (SCALE OF 1 TO 10):6 WHAT DOES YOUR PAIN FEEL LIKE:ACHING, CONTINOUS, STABBING PAIN IS INCREASED BY: SITTING, ACTIVITY PAIN IS DECREASED BY: LAYING DOWN, HEAT NURSING NOTE: -. PAIN CENTER INTAKE QUESTIONS: DO YOU HAVE A HISTORY OF MRSA? :NO DO YOU TAKE A BLOOD THINNERS? :NO DO YOU HAVE ANY BLEEDING DISORDERS? :NO ANY NEW NUMBNESS OR WEAKNESS IN YOUR LEGS OR ARMS? :NO ANY PACEMAKER,DEFIBRILLATOR, OR DORSAL COLUMN STIMULATOR? :NO DO YOU HAVE ANY RASHES OR OPEN SORES? :NO ARE YOU ALLERGIC TO IV DYE? :NO ARE YOU DIABETIC? :NO ANY NEW PROBLEMS WITH YOUR MEDICATIONS? :NO HAVE YOU RECEIVED A VACCINE IN THE PAST 30 DAYS? :NO DO YOU PLAN TO RECEIVE A VACCINE IN THE NEXT 21 DAYS? :NO DO YOU NEED ANY PRESCRIPTION? :NO DO YOU TAKE ANY IMMUNOSUPPRESSIVE MEDICATIONS? :NO IS THERE A CHANCE YOU COULD BE ? :NO ARE YOU BREAST FEEDING? 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 SURGICAL HISTORY UPPER LEFT LOBECTOMY 2010 COLLAPSED LUNG LEFT SIDE 2008 ALL TEETH EXTRACTED 2015 FAMILY HISTORY FATHER: MOTHER: ALIVE 70 YRS, BLADDER CANCER, EMPHYSEMA, DIAGNOSED WITH HYPERTENSION, OTHER MALIGNANT NEOPLASM OF UNSPECIFIED SITE SIBLINGS: ALIVE SON(S): ALIVE DAUGHTER(S): ALIVE PATERNAL GRAND FATHER: PATERNAL GRAND MOTHER: MATERNAL GRAND FATHER: , OTHER MALIGNANT NEOPLASM OF UNSPECIFIED SITE MATERNAL GRAND MOTHER: , UNSPECIFIED HEART DISEASE 2 BROTHER(S) - HEALTHY. 3 SON(S) , 2 DAUGHTER(S) - HEALTHY. FATHER WHEN PATIENT WAS 3: MVA: HIT BY TRAIN. COUSIN'S DAUGHTER: COLON CANCER: DIAGNOSED AT AGE 24MOM WITH BLADDER CANCER. SOCIAL HISTORY GENERAL: TOBACCO USE ARE YOU A:FORMER SMOKER QUIT IN 2008 HOW LONG HAS IT BEEN SINCE YOU LAST SMOKED?> 10 YEARS VAPORNO E-CIGARETTENO LATEX QUESTIONNAIRE LATEX ALLERGY : HAVE YOU EVER DEVELOPED ANY TYPE OF REACTION AFTER HANDLING LATEX PRODUCTS SUCH RUBBER GLOVES, CONDOMS, DIAPHRAGMS, BALLOONS, SOCKS, OR UNDERWEAR?NO LATEX ALLERGY : HAVE YOU EVER DEVELOPED ANY TYPE OF REACTION DURING OR AFTER DENTAL APPOINTMENT, VAGINAL/RECTAL EXAMINATION, SURGICAL PROCEDURE, OR ANY OTHER EXPOSURE?NO DATE ASKED : 07/21/2019 LATEX RISK : HAVE YOU EVER HAD ANY DIFFICULTY BREATHING OR HIVES AFTER EATING OR HANDLING ANY FRUITS, OR VEGETABLES; SUCH KIWI, BANANAS, STONE FRUITS, OR CHESTNUTSNO LATEX RISK : DO YOU HAVE A PREVIOUS PERSONAL HISTORY OF MORE THAN NINE SURGERIES, SPINA BIFIDA, OR REPEATED CATHERIZATIONS? NO LATEX RISK : ARE YOU FREQUENTLY EXPOSED TO LATEX PRODUCTS IN YOUR OCCUPATION?NO ALCOHOL SCREENING DID YOU HAVE A DRINK CONTAINING ALCOHOL IN THE PAST YEAR?YES HOW OFTEN DID YOU HAVE SIX OR MORE DRINKS ON ONE OCCASION IN THE PAST YEAR?NEVER (0 POINTS) HOW MANY DRINKS DID YOU HAVE ON A TYPICAL DAY WHEN YOU WERE DRINKING IN THE PAST YEAR?1 OR 2 (0 POINTS) HOW OFTEN DID YOU HAVE A DRINK CONTAINING ALCOHOL IN THE PAST YEAR?TWO TO THREE TIMES PER WEEK (3 POINTS) POINTS3 INTERPRETATIONNEGATIVE RECREATIONAL DRUG USE DRUG USE?NO DENIES 10/10/19 CAFFEINE CAFFEINE USE?YES HOW OFTEN AND HOW MUCH? -1 1/2 CUPS COFFEE IN AM SEXUAL HX HAD SEX IN THE LAST 12 MONTHS (VAGINAL, ORAL, OR ANAL)?YES WITHWOMEN ONLY PREVENTION STRATEGIES DISCUSSED:OTHER USE PROTECTION?NO HAVE YOU EVER HAD AN STD?NO HIV / HEP-C SCREENING HIV TEST OFFERED TO PATIENT:YES DATE OFFERED:07/21/2018 TEST ACCEPTED:NO HEP-C TEST OFFERED TO PATIENT:YES DATE OFFERED:07/21/2018 REASON:PATIENT DECLINED -BLOOD DONOR-ALREADY TESTED TEST ACCEPTED:NO REASON:PATIENT DECLINED -BLOOD DONOR-ALREADY TESTED BROCHURE PROVIDED TO PATIENTNO [employer] [id number] L[employer] LANGUAGES SPOKEN:[place]OV[place] EDUCATION LEVEL OF EDUCATION:FINISHED HIGH SCHOOL LEARNING BARRIERS / SPECIAL NEEDS CHANGE FROM LAST VISIT?NO 09/20/2019 BARRIERS TO LEARNING?NO HEARING IMPAIRED?NO VISION IMPAIRED?YES COGNITIVELY IMPAIRED?NO :CORRECTIVE LENSES -READERS READINESS TO LEARN?YES LEARNING PREFERENCES?NO LEARNING CAPABILITIES PRESENT?YES EMOTIONAL BARRIERS?NO SPECIAL DEVICES?NO DIRECTOR CARDIOVASCULAR NEEDED?NO DOMESTIC VIOLENCE DO YOU FEEL SAFE IN YOUR ENVIRONMENT?YES 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 DIET: REGULAR. EXERCISE: NO REGULAR EXERCISE. MARITAL STATUS: .. OTHERS AT HOME: FATHER, MOTHER, CHILD, OTHER NON-RELATIVE. NEW PATIENT PAIN DIARY TODAY'S VISITNOTES 10/10/2019 PATIENT DESCRIBES PAIN :HAVE IT ALL THE TIME, OTHER PRESSURE, PINCHING, TIGHTNESS FROM 0-10, WHAT LEVEL IS YOUR PAIN TODAY?8 PRECIPITATING FACTORS SITTING, PUSHING, PULLING ALLEVIATING FACTORS HEAT, MEDICATION PAIN CLINIC PFS, CLERGY, PUBLIC HEALTH REFERRALS HAS THE PATIENT BEEN EDUCATED REGARDING HIS/HER PLAN OF CARE?YES HAS THE PATIENT BEEN EDUCATED REGARDING PAIN, THE RISK FOR PAIN, THE IMPORTANCE OF EFFECTIVE PAIN MANAGEMENT, AND THE PAIN ASSESSMENT PROCESS?YES ADVANCE DIRECTIVE ADVANCE DIRECTIVE DISCUSSED WITH PATIENT:YES PT WAS GIVEN INFORMATION ON HCP LAST VISIT AND HE WILL BRING IT IN AND HAVE US WITNESS IT. HOSPITALIZATION/MAJOR DIAGNOSTIC PROCEDURE W/SURGERY SPINAL MENINGITIS AGE 22 REVIEW OF SYSTEMS CONSTITUTIONAL: ANY RECENT FEVER OR ILLNESS NO . CHILLS NO . GASTROENTEROLOGY: BOWEL INCONTINENCE NO . ANY NEW CHANGE IN BOWEL CONTROL? NO . ABDOMINAL PAIN NO . CONSTIPATION NO . GENITOURINARY: ANY NEW CHANGE IN BLADDER CONTROL? NO . IS THERE A CHANCE YOU COULD BE ? NO . URINARY INCONTINENCE NO . CARDIOLOGY: CHEST PRESSURE NO . CHEST PAIN NO . RESPIRATORY: COUGH NO . SHORTNESS OF BREATH NO . VITAL SIGNS WT 147.6 LBS, HT 5'7", BMI 23.11 INDEX, BP 136/83 MM HG, HR 84 /MIN, RR 16 /MIN, TEMP 98.6 F, OXYGEN SAT % 98%, NA INITIALS TL 1308. EXAMINATION GENERAL EXAMINATION: LUNGS: LUNG SOUNDS ARE CLEAR . HEART: HEART RATE REGULAR . MUSCULOSKELETAL:*, MUSCLE STRENGTH TESTING 5/5 BILATERAL LOWER EXTREMITIES., ,PALPATION: POSITIVE FOR PAIN OVER L/S SPINE. POSITIVE FOR PAIN OVER L/S PARSPINALS.SPECIFIC POINT TENDERNESS OVER BILAT L4/5-L5/S1 LUMBR FACETS WITH FACET LOADING . DIAGNOSTIC:MRI L/S SPINE . ASSESSMENTS LUMBAR FACET ARTHROPATHY - M47.816 (PRIMARY) LUMBOSACRAL SPINAL STENOSIS - M48.07 TREATMENT LUMBAR FACET ARTHROPATHY NOTES: BILATERAL L4-5, L5-S1 THERAPEUTIC LUMBAR FACET BLOCK. OTHERS NOTES: FACET JOINT INJECTION MATERIAL WAS PRINTED. DISPOSITION & COMMUNICATION FOLLOW UP POST (REASON: BILATERAL L4-5, L5-S1 THERAPEUTIC LUMBAR FACET BLOCK) ELECTRONICALLY SIGNED BY ZEHRA VALENCIA ON 10/30/2019 AT 11:44 AM EDT DISCLAIMER : THIS IS A VISIT SUMMARY EXTRACTED FROM THE [employer] CHART. IT IS NOT A COPY OF THE [employer] PROGRESS NOTE. DAVID
== END ==
LOC: M PAIN 13:00
PROVIDERS: ATTEND Nurse Practitioner Family
DX: M48.07 Spinal stenosis, lumbosacral region (principal)

== ENCOUNTER → 2019-11-20 | Outpatient (CLI) | payer BC ==
[~2019-11-20] MED LIST changes: +AMLO1TAB24; -AMLO5TAB6
== END ==
LOC: M LABSMTC 10:16
PROVIDERS: ATTEND Anesthesiology
DX: Z11.59 Encounter for screening for other viral diseases (principal)
CPT/HCPCS: C9803; U0003

== ENCOUNTER → 2019-11-24 | Outpatient (CLI) | payer BC ==
[~2019-11-24] MED LIST changes: +BUPIVACAINE HCL 0.25% 30ML VIAL As Ordered ONE; +ISOVUE-M 300 61% 15ML VIAL As Ordered ONE; +LIDOCAINE 1% SDV 30ML VIAL As Ordered ONE; +NORCO, ANEXSIA 5/325MG TABLET (HYDROcodone/ACETAMINOPHEN) As Ordered ONE; +TRIAMCINOLONE ACETONIDE SUSP 40 MG/ML VIAL (J3301) As Ordered ONE; +diazePAM 5 MG TAB As Ordered ONE
--- NOTE | 2019-11-25 13:48 | REP ---
C-ARM VIEWS LOWER LUMBAR SPINE: CLINICAL HISTORY: Pain. Four C-arm views lower lumbar spine performed during bilateral facet injection by Dr. Rg. [place] are seen along the lower lumbar facet joints and a small amount of contrast is injected. 23 seconds fluoroscopy time utilized. Electronically Signed by Amos Garnett MD 11/26/2019 11:31 P
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
== END ==
LOC: M PAIN 13:30
PROVIDERS: ATTEND Anesthesiology
DX: M47.816 Spondylosis without myelopathy or radiculopathy, lumbar region (principal); M47.817 Spondylosis without myelopathy or radiculopathy, lumbosacral region
CPT/HCPCS: 64493; 64494; J3301; Q9967

== ENCOUNTER → 2020-01-19 | Outpatient (CLI) | payer BC ==
[~2020-01-19] MED LIST changes: -BUPIVACAINE HCL 0.25% 30ML VIAL As Ordered ONE; -ISOVUE-M 300 61% 15ML VIAL As Ordered ONE; -LIDOCAINE 1% SDV 30ML VIAL As Ordered ONE; -NORCO, ANEXSIA 5/325MG TABLET (HYDROcodone/ACETAMINOPHEN) As Ordered ONE; -TRIAMCINOLONE ACETONIDE SUSP 40 MG/ML VIAL (J3301) As Ordered ONE; -diazePAM 5 MG TAB As Ordered ONE
== END ==
LOC: M LABSMTC 10:18
PROVIDERS: ATTEND Anesthesiology
DX: Z20.828 Contact with and (suspected) exposure to other viral communicable diseases (principal)
CPT/HCPCS: C9803; U0003

== ENCOUNTER → 2020-01-24 | Outpatient (CLI) | payer BC ==
[~2020-01-24] MED LIST changes: +BUPIVACAINE HCL 0.25% 30ML VIAL As Ordered ONE; +ISOVUE-M 300 61% 15ML VIAL As Ordered ONE; +LIDOCAINE 1% SDV 30ML VIAL As Ordered ONE
--- NOTE | 2020-02-20 09:40 | REP ---
C-ARM VIEWS LOWER LUMBAR SPINE HISTORY: Pain. Three C-arm views of the lower lumbar spine are performed during bilateral facet injections performed by Dr. Rg. [place] are seen along the lower lumbar facet joints and a small amount of contrast is injected. 34 seconds of fluoroscopy time is utilized. MTDD
== END ==
LOC: M PAIN 08:50
PROVIDERS: ATTEND Anesthesiology
DX: M47.816 Spondylosis without myelopathy or radiculopathy, lumbar region (principal); M47.817 Spondylosis without myelopathy or radiculopathy, lumbosacral region
CPT/HCPCS: 64493; 64494; 77002; G0463; Q9967

== ENCOUNTER → 2020-02-07 | Outpatient (CLI) | payer BC ==
[~2020-02-07] MED LIST changes: -BUPIVACAINE HCL 0.25% 30ML VIAL As Ordered ONE; -ISOVUE-M 300 61% 15ML VIAL As Ordered ONE; -LIDOCAINE 1% SDV 30ML VIAL As Ordered ONE
== END ==
LOC: M PAIN 09:44
PROVIDERS: ATTEND Nurse Practitioner Family
DX: M47.816 Spondylosis without myelopathy or radiculopathy, lumbar region (principal)

== ENCOUNTER → 2020-03-21 | Outpatient (CLI) | payer BC ==
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
== END ==
LOC: M PAIN 09:15
PROVIDERS: ATTEND Nurse Practitioner Family
DX: M48.07 Spinal stenosis, lumbosacral region (principal); J44.9 Chronic obstructive pulmonary disease, unspecified; I10 Essential (primary) hypertension; Z79.1 Long term (current) use of non-steroidal anti-inflammatories (NSAID); Z79.899 Other long term (current) drug therapy; Z87.891 Personal history of nicotine dependence

== ENCOUNTER → 2020-05-14 | Outpatient (CLI) | payer BC ==
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
== END ==
LOC: M PAIN 10:00
PROVIDERS: ATTEND Nurse Practitioner Family
DX: M54.10 Radiculopathy, site unspecified (principal); J44.9 Chronic obstructive pulmonary disease, unspecified; Z87.891 Personal history of nicotine dependence; Z79.899 Other long term (current) drug therapy

== ENCOUNTER → 2020-05-31 | Outpatient (CLI) | payer BC | LOC: M LABSMTC 09:32 | PROVIDERS: ATTEND Anesthesiology | DX: Z20.822 Contact with and (suspected) exposure to COVID-19 (principal) ==

== ENCOUNTER → 2020-06-05 | Outpatient (CLI) | payer BC ==
[~2020-06-05] MED LIST changes: +ISOVUE-M 300 61% 15ML VIAL As Ordered ONE; +LIDOCAINE 1% SDV 30ML VIAL As Ordered ONE; +NORCO, ANEXSIA 5/325MG TABLET (HYDROcodone/ACETAMINOPHEN) As Ordered ONE; +diazePAM 5MG TABLET As Ordered ONE; +methylPREDNISolone SUSP 40MG/ML 1ML VIAL (DEPO MEDROL) As Ordered ONE
--- NOTE | 2020-06-05 12:49 | REP ---
INDICATION: PAIN. COMPARISON: None. TECHNIQUE: Two views. 5.2 seconds of fluoroscopy time is reported. FINDINGS: A sequence of 2 last image hold fluoroscopically obtained spot radiograph(s) of the lumbar spine document(s) needle position(s) and contrast injection associated with injection procedure. IMPRESSION: Procedural imaging. <Electronically signed by Gualberto Jimenes > 06/05/20 [id number]
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
== END ==
LOC: M PAIN 11:00
PROVIDERS: ATTEND Anesthesiology
DX: M51.16 Intervertebral disc disorders with radiculopathy, lumbar region (principal); J44.9 Chronic obstructive pulmonary disease, unspecified; I10 Essential (primary) hypertension; Z79.891 Long term (current) use of opiate analgesic; Z79.899 Other long term (current) drug therapy; Z87.891 Personal history of nicotine dependence
CPT/HCPCS: 62323; J1030; Q9967

== ENCOUNTER → 2020-06-19 | Outpatient (CLI) | payer BC ==
[~2020-06-19] MED LIST changes: -ISOVUE-M 300 61% 15ML VIAL As Ordered ONE; -LIDOCAINE 1% SDV 30ML VIAL As Ordered ONE; -NORCO, ANEXSIA 5/325MG TABLET (HYDROcodone/ACETAMINOPHEN) As Ordered ONE; -diazePAM 5MG TABLET As Ordered ONE; -methylPREDNISolone SUSP 40MG/ML 1ML VIAL (DEPO MEDROL) As Ordered ONE
--- NOTE | 2020-06-20 02:57 | ECWPNPC ---
PATIENT NAME: MAXIME MCKEON : 1970 GENDER: MALE VISIT DATE: 06/19/2020 DISCHARGE DATE: 06/19/20 1128 VISIT LOCKED DATE TIME: PHYSICIAN: FREDERICK SCHWARTZ PHYSICIAN PAGER NO: ACTIVE RESOURCE: FREDERICK SCHWARTZ REASON FOR APPOINTMENT 1. POST L4-L5 LUMBAR EPIDURAL STEROID INJECTION HISTORY OF PRESENT ILLNESS PAIN CENTER INTAKE QUESTIONS: DO YOU HAVE A HISTORY OF MRSA? :NO DO YOU TAKE A BLOOD THINNERS? :NO DO YOU HAVE ANY BLEEDING DISORDERS? :NO ANY NEW NUMBNESS OR WEAKNESS IN YOUR LEGS OR ARMS? :NO ANY PACEMAKER,DEFIBRILLATOR, OR DORSAL COLUMN STIMULATOR? :NO DO YOU HAVE ANY RASHES OR OPEN SORES? :NO ARE YOU ALLERGIC TO IV DYE? :NO ARE YOU DIABETIC? :NO ANY NEW PROBLEMS WITH YOUR MEDICATIONS? :NO HAVE YOU RECEIVED A VACCINE IN THE PAST 30 DAYS? :NO DO YOU PLAN TO RECEIVE A VACCINE IN THE NEXT 21 DAYS? :YES IF SO WHAT VACCINE AND WHEN? WOULD LIKE TO CONSIDER THE COVID VACCINATION IF IT BECOMES AVAILABLE. DO YOU NEED ANY PRESCRIPTION? :NO DO YOU TAKE ANY IMMUNOSUPPRESSIVE MEDICATIONS? :NO IS THERE A CHANCE YOU COULD BE ? :NO ARE YOU BREAST FEEDING? :NO GENERAL: THIS IS A POST PROCEDURE FOLLOW-UP VISIT. HAD L4-5 LESI ON 06/05/2020. REPORTING MARKED IMPROVEMENT IN LOW BACK AND RIGHT LEG PAIN. HE IS VERY HAPPY WITH RESULTS. STATES HE'S ABLE TO TOLERATE ACTIVITIES I.E. WORKING WITHOUT MUCH PAIN. REPORTS TAKING LESS PAIN MEDICATION. -. FALL RISK SCREENING: SCREENING :NO FALLS REPORTED IN THE LAST YEAR PAIN SCREENING: PATIENT HAS A COMPLAINT OF ACUTE OR CHRONIC PAIN :YES LOCATION OF PAIN:MID BACK INTENSITY OF PAIN (SCALE OF 1 TO 10):3 WHAT DOES YOUR PAIN FEEL LIKE:CONTINOUS STIFF, FEELS LIKE IT IS "LOCKED UP". DURATION:CONTINOUS, CONSTANT, AWAKENS FROM SLEEP PAIN IS INCREASED BY:ACTIVITIES, PROLONGED STANDING PAIN IS DECREASED BY:USE OF PAIN MEDICATIONS, OTHERS CARISOPRODOL AND OXYCODONE, HEATING PAD NURSING NOTE: -. CURRENT MEDICATIONS TAKING EXCEDRIN MIGRAINE 250-250-65 MG TABLET 2 TABLETS ORALLY ONCE DAILY NEEDED TAKING VIAGRA 100 MG TABLET 1 TABLET NEEDED ORALLY ONCE A DAY TAKING GABAPENTIN 600 MG TABLET 1 TABLET ORALLY TID, NOTES: 1/20 0600 TAKING AMLODIPINE BESYLATE 10 MG TABLET TAKE 1 TABLET BY MOUTH ONCE DAILY TAKING OXYCODONE HCL 5 MG TABLET 1 TABLET NEEDED ORALLY Q8H PRN MDD3 #30 TAB SHOULD LAST 30 DAYS, NOTES: 06/04 1500 NOT-TAKING METHYLPREDNISOLONE 4 MG TABLET THERAPY PACK DIRECTED ORALLY DIRECTED, NOTES: COMPLETED LAST WEEK NOT-TAKING SOMA 350 MG TABLET 1 TABLET NEEDED ORALLY Q8H MDD3, NOTES: 06/04 1999 UNKNOWN OXYCODONE HCL 5 MG TABLET 1 TABLET NEEDED ORALLY Q8H PRN FOR SEVERE PAIN EPISODES #45 TAB SHOULD LAST 30 DAYS MEDICATION LIST REVIEWED AND RECONCILED WITH THE PATIENT PAST MEDICAL HISTORY COPD HTN CRUSHED DISC IN BACK COLLAPSED LEFT LUNG 2010 SPINAL MENINGITIS AGE 22 ALLERGIES N.K.D.A. SOCIAL HISTORY GENERAL: TOBACCO USE ARE YOU A:FORMER SMOKER QUIT IN 2008 HOW LONG HAS IT BEEN SINCE YOU LAST SMOKED?> 10 YEARS VAPORNO E-CIGARETTENO LATEX QUESTIONNAIRE LATEX ALLERGY : HAVE YOU EVER DEVELOPED ANY TYPE OF REACTION AFTER HANDLING LATEX PRODUCTS SUCH RUBBER GLOVES, CONDOMS, DIAPHRAGMS, BALLOONS, SOCKS, OR UNDERWEAR?NO LATEX ALLERGY : HAVE YOU EVER DEVELOPED ANY TYPE OF REACTION DURING OR AFTER DENTAL APPOINTMENT, VAGINAL/RECTAL EXAMINATION, SURGICAL PROCEDURE, OR ANY OTHER EXPOSURE?NO LATEX RISK : HAVE YOU EVER HAD ANY DIFFICULTY BREATHING OR HIVES AFTER EATING OR HANDLING ANY FRUITS, OR VEGETABLES; SUCH KIWI, BANANAS, STONE FRUITS, OR CHESTNUTSNO LATEX RISK : DO YOU HAVE A PREVIOUS PERSONAL HISTORY OF MORE THAN NINE SURGERIES, SPINA BIFIDA, OR REPEATED CATHERIZATIONS? NO LATEX RISK : ARE YOU FREQUENTLY EXPOSED TO LATEX PRODUCTS IN YOUR OCCUPATION?NO DATE ASKED : 06/19/2020 ALCOHOL USE: OCCASIONAL. ALCOHOL SCREENING DID YOU HAVE A DRINK CONTAINING ALCOHOL IN THE PAST YEAR?YES HOW OFTEN DID YOU HAVE SIX OR MORE DRINKS ON ONE OCCASION IN THE PAST YEAR?NEVER (0 POINTS) HOW MANY DRINKS DID YOU HAVE ON A TYPICAL DAY WHEN YOU WERE DRINKING IN THE PAST YEAR?1 OR 2 (0 POINTS) HOW OFTEN DID YOU HAVE A DRINK CONTAINING ALCOHOL IN THE PAST YEAR?TWO TO THREE TIMES PER WEEK (3 POINTS) POINTS3 INTERPRETATIONNEGATIVE RECREATIONAL DRUG USE DRUG USE?NO CAFFEINE CAFFEINE USE?YES HOW OFTEN AND HOW MUCH? -1 1/2 CUPS COFFEE IN AM SEXUAL HX HAD SEX IN THE LAST 12 MONTHS (VAGINAL, ORAL, OR ANAL)?YES WITHWOMEN ONLY PREVENTION STRATEGIES DISCUSSED:OTHER USE PROTECTION?NO HAVE YOU EVER HAD AN STD?NO HIV / HEP-C SCREENING HIV TEST OFFERED TO PATIENT:YES DATE OFFERED:07/21/2018 TEST ACCEPTED:NO HEP-C TEST OFFERED TO PATIENT:YES DATE OFFERED:07/21/2018 REASON:PATIENT DECLINED -BLOOD DONOR-ALREADY TESTED TEST ACCEPTED:NO REASON:PATIENT DECLINED -BLOOD DONOR-ALREADY TESTED BROCHURE PROVIDED TO PATIENTNO ANABAPTISM [id number] FAITH LANGUAGE LANGUAGES SPOKEN:SRI LANKAN EDUCATION LEVEL OF EDUCATION:FINISHED HIGH SCHOOL LEARNING BARRIERS / SPECIAL NEEDS CHANGE FROM LAST VISIT?NO BARRIERS TO LEARNING?NO HEARING IMPAIRED?NO VISION IMPAIRED?YES :CORRECTIVE LENSES -READERS COGNITIVELY IMPAIRED?NO READINESS TO LEARN?YES LEARNING PREFERENCES?NO LEARNING CAPABILITIES PRESENT?YES EMOTIONAL BARRIERS?NO SPECIAL DEVICES?NO BRIDGE EXPERT NEEDED?NO DOMESTIC VIOLENCE DO YOU FEEL SAFE IN YOUR ENVIRONMENT?YES 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 DIET: REGULAR. EXERCISE: NO REGULAR EXERCISE. MARITAL STATUS: .. OTHERS AT HOME: FATHER, MOTHER, CHILD, OTHER NON-RELATIVE. - HAS THE PATIENT BEEN EDUCATED REGARDING HIS/HER PLAN OF CARE?YES HAS THE PATIENT BEEN EDUCATED REGARDING PAIN, THE RISK FOR PAIN, THE IMPORTANCE OF EFFECTIVE PAIN MANAGEMENT, AND THE PAIN ASSESSMENT PROCESS?YES ADVANCE DIRECTIVE ADVANCE DIRECTIVE DISCUSSED WITH PATIENT:YES PT WAS GIVEN INFORMATION ON HCP LAST VISIT AND HE WILL BRING IT IN AND HAVE US WITNESS IT. REVIEW OF SYSTEMS CONSTITUTIONAL: ANY RECENT FEVER NO . CHILLS NO . WEIGHT CHANGE OF UNKNOWN REASONS NO . GASTROENTEROLOGY: NEW UNEXPLAINABLE CHANGES IN BOWEL CONTROL NO . CONSTIPATION NO . GENITOURINARY: ANY NEW CHANGE IN BLADDER CONTROL? NO . NEUROLOGY: NEW ONSET DIZZINESS OR NEUROLOGICAL CHANGES NOT MENTIONED NO . NEW NUMBNESS OR PAIN PATTERNS NOT MENTIONED AND PERTINENT TO TODAY'S VISIT NO . CARDIOLOGY: NEW CHEST PRESSURE NO . NEW CHEST PAIN NO . RESPIRATORY: UNEXPLAINABLE COUGH NO . NEW SHORTNESS OF BREATH NO . VITAL SIGNS WT 164.2 LBS, HT 5'7", BMI 25.71 INDEX, BP 135/97 MM HG, HR 72 /MIN, RR 18 /MIN, TEMP 98.0 F, OXYGEN SAT % 99%, SAFE IN ENV? (Y/N) YES, NA INITIALS AW 1036, REVIEWED BY: MATEO HORNE MA. EXAMINATION GENERAL EXAMINATION: GENERALAWAKE,ALERT ,PLEASANT . PSYCHAFFECT NORMAL . LUNGS:LUNG MOSER ARE CLEAR TO AUSCULTATION BILATERALLY. GOOD MOVEMENT OF AIR . HEART:S1, S2 IN A REGULAR RATE AND RHYTHM. NO SIGNIFICANT MURMURS, RUBS OR GALLOPS NOTED . ASSESSMENTS OTHER CHRONIC PAIN - G89.29 (PRIMARY) INTERVERTEBRAL DISC DISORDERS WITH RADICULOPATHY, LUMBAR REGION - M51.16 TREATMENT OTHER CHRONIC PAIN PAIN PROCEDURE LOGDATE OF PROCEDURE06/05/20PROCEDURE:LUMBAR EPIDURAL STEROID INJECTIONAMOUNT OF PRE SEDATEHYRODOCODONE 5/325 MG, VALIUM 5 MGRESULT:MMARKED REDUCTION IN PAIN IN LOW BACK AND RIGHT LEG. IMPROVED ACTIVITY TOLERANCE. TAKING LESS PAIN MEDICATION SINCE PROCEDURE DISPOSITION & COMMUNICATION FOLLOW UP 3 MONTHS (REASON: LOW BACK /MED MGMNT) ELECTRONICALLY SIGNED BY ZEHRA VALENCIA ON 06/19/2020 AT 12:58 PM EST DISCLAIMER : THIS IS A VISIT SUMMARY EXTRACTED FROM THE [employer] CHART. IT IS NOT A COPY OF THE [employer] PROGRESS NOTE. DAVID
== END ==
LOC: M PAIN 10:45
PROVIDERS: ATTEND Nurse Practitioner Family
DX: M51.16 Intervertebral disc disorders with radiculopathy, lumbar region (principal); G89.29 Other chronic pain; J44.9 Chronic obstructive pulmonary disease, unspecified; Z87.891 Personal history of nicotine dependence; Z79.899 Other long term (current) drug therapy

== ENCOUNTER 2020-07-01 12:32 | Emergency (ER) | payer BC ==
[~2020-07-01] VITALS: Ht 170.2 cm; Wt 72.5 kg
[2020-07-01 12:33] VITALS: BP 145/88
--- OUTSIDE RECORDS SUMMARY | 2020-07-01 12:38 | CCD ---
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 Ac tive confirmed [id number] Problem Migraine without aura and without status migrain osus, not intractable G43.009 Active confirmed 465038250 Problem Lumbago with sciatica, left side M54.42 Active confirmed 084053770 Problem Lumbar Facet arthropathy M47.816 Active confirmed 209109385 Problem Paresthesia of skin R20.2 Active confirmed 48315223 Problem Other chronic pain G89.29 Active confirmed 8 2891447 Problem Erectile dysfunction, unspecified erectile dysfunction typ e N52.9 Active confirmed 630373324 Problem Hypertensive heart disease without heart failure I 11.9 Active confirmed 36826705 Problem Myalgia, other site M79.18 Active confirmed 45719166 ALLERGIES No Known Allergies ENCOUNTERS from 1970 to 2020-06-21 Encounter Location Date Provider Diagnosis [facility] [address] [place] [address] Jun, Krys Kiser Other chronic pain G89.29 and Interverte bral disc disorders with radiculopathy, lumbar region M51.16 IMMUNIZATIONS Vaccine Route Administration Date Status Pneumococcal Adult 0.5mL (Pneumovax 23) IM Intramuscular Feb 22, 2018 Administered Influenza (6mo & up) Fluzone IM Intramuscular Feb 22, 2018 Ad ministered SOCIAL HISTORY Tobacco Use: Social History Observation Description Date Details (start date - stop date) Former Smoker Sex Assigned At : Social History Observation Description Sex Assigned At Unknown Education: Question Answer Notes Level of Education: Finished High School Audit Question Answer Notes Total Score: 3 Interpretation: Alcohol Education Language: Question Answer Notes Languages spoken: French Taoism: Question Answer Notes Taoism 21 Sikhism Sexual Hx: Question Answer Notes Had sex in the last 12 months (vaginal, oral, or anal)? Yes Have you ever had an STD? No Prevention Strategies discussed: Other with Women only Use protection? No Drug and Alcohol Question Answer Notes Total Score: 0 Interpretation: No problems reported Alcohol Screening: Question Answer Notes Did you have a drink containing alcohol in the past year? Ye s Points 3 Interpretation Negative How often did you have six or more drinks on one occas ion in the past year? Never (0 points) How many drinks did you have on a typica l day when you were drinking in the past year? 1 or 2 (0 points) How often did you have a drink containing alcohol in t he past year? Two to three times per week (3 points) Tobacco Use: Question Answer Notes Are you a: former smoker Quit in 2008 How long has it been since you last smoked? > 10 years REASON FOR REFERRAL No Information VITAL SIGNS Weight 164.2 lbs Jun, Height 5'7" in Jun, BMI 25.71 kg/m2 Jun, Heart Rate 72 /min Jun, Respiratory Rate 18 /min Jun, Temperature 98.0 degrees Fahrenheit Jun, Oximetry 99% Jun, Blood pressure systolic 135 mm Hg Jun, Blood pressure diastolic 97 mm Hg Jun, MEDICATIONS Medication SIG (Take, Route, Frequency, Duration) Notes Start Da te End Date Status Soma 350 MG 1 tablet as needed Orally q8h mdd3 for 10 day(s) Apr, Not-Taking Gabapentin 600 MG 1 tablet Orally tid for 30 Days Active Viagra 100 MG 1 tablet as needed Orally Once a day for 8 days Active Oxycodone HCl 5 MG 1 tablet as needed Orally Q8 H PRN FOR SEVERE PAIN EPISODES #45 TAB SHOULD LAST 30 DAYS Aug, Unkn own AmLODIPine Besylate 10 MG TAKE 1 TABLET BY MOUTH ONCE DAILY for 90 Active Oxycodone HCl 5 MG 1 tablet as needed Orally q8 h prn mdd3 #30 tab should last 30 days for 30 Days May, Active Excedrin Migraine 250-250-65 MG 2 tablets Orally once daily as needed Active MethylPREDNISolone 4 MG as directed Orally as directed for 14 da y(s) Apr, Not-Taking PROCEDURES from 1970 to 2020-06-21 Procedure Date Ordered Result Body Site Pain Procedure Log 2020-06-19 N/A RESULTS No Results REASON FOR VISIT Post L4-L5 LUMBAR EPIDURAL STEROID INJECTION MEDICAL (GENERAL) HISTORY Type Description Date Medical History COPD Medical History HTN Medical History crushed disc in back Medical History Collapsed left lung 2008, 2010 Medical History Spinal Meningitis age 22 Surgical History Upper left lobectomy 2010 Surgical History Collapsed lung left side 2008 Surgical History All teeth extracted 2015 Hospitalization History w/surgery Hospitalization History spinal meningitis age 22 Goals Section No Information Health Concerns No Information MEDICAL EQUIPMENT No Information MENTAL STATUS No Information FUNCTIONAL STATUS No Information ASSESSMENTS Encounter Date Diagnosis Assessment Notes Treatment Notes Treatm ent Clinical Notes Jun, Other chronic pain (ICD-10 - G89.29) Jun, Intervertebral disc disorder s with radiculopathy, lumbar region (ICD-10 - M51.16) PLAN OF TREATMENT Next Appt Details 3 Months Reason:low back /med mgmnt Provider Name:Krys Kiser, 2020-09-16 01 :30:00 PM, [address] [place] [address], [phone], Follow Up:3 Monthslow back /med mgmnt Insurance Providers Payer Name Payer Address Payer Phone Insured Name Patient Relati onship to Insured Coverage Start Date Coverage End Date BCBS UTIEMY RICKETTS PPO [phone] [facility] [employer] [place] [address] MAXIME MCKEON self
--- OUTSIDE RECORDS SUMMARY | 2020-07-01 12:38 | CCD ---
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 Active [id number] Problem Migraine without aura and without status migrain osus, not intractable G43.009 Active 442050438 Problem Lumbago with sciatica, left side M54.42 Active 102319604 Problem Lumbar Facet arthropathy M47.816 Active 2674624 08 Problem Paresthesia of skin R20.2 Active 82241568 Problem Other chronic pain G89.29 Active 62106072 Problem Erectile dysfunction, unspecified erectile dysfunction typ e N52.9 Active 793327815 Problem Hypertensive heart disease without heart failure I 11.9 Active 03026906 Problem Myalgia, other site M79.18 Active 33966666 ALLERGIES No Known Allergies ENCOUNTERS from 1970 to 2020-06-12 Encounter Location Date Provider Diagnosis [facility] [address] [place] [address] May, Krys Kiser Acute low back pain with radicular sympt oms, duration less than 6 weeks M54.10 IMMUNIZATIONS Vaccine Route Administration Date Status Pneumococcal [...] Education Language: Question Answer Notes Languages spoken: Tajik Anglican: Question Answer Notes Anglican 21 Baptism Sexual Hx: Question Answer Notes Had sex [...] REASON FOR REFERRAL No Information VITAL SIGNS No information MEDICATIONS Medication SIG (Take, Route, Frequency, Duration) Notes Start Da te End Date Status Oxycodone HCl 5 MG 1 tablet as needed Orally Q8 H PRN FOR SEVERE PAIN EPISODES #45 TAB SHOULD LAST 30 DAYS Aug, Not- Taking Soma 350 MG 1 tablet as needed Orally q8h mdd3 for 10 day(s) Apr, Active MethylPREDNISolone 4 MG as directed Orally as directed for 14 da y(s) Apr, Active AmLODIPine Besylate 10 MG TAKE 1 TABLET BY MOUTH ONCE DAILY for 90 Active Viagra 100 MG 1 tablet as needed Orally Once a day for 8 days Active Oxycodone HCl 5 MG 1 tablet as needed Orally q8 h prn mdd3 #30 tab should last 30 days for 30 Days May, Active Excedrin Migraine 250-250-65 MG 2 tablets Orally once daily as needed Active Gabapentin 600 MG 1 tablet Orally tid for 30 Days Active PROCEDURES No Information RESULTS No Results REASON FOR VISIT REFILL OXYCODONE MEDICAL (GENERAL) HISTORY Type Description Date Medical History COPD Medical History HTN Medical History crushed disc in back Medical History Collapsed left lung 2010 Medical History Spinal Meningitis age 22 Surgical History Upper left lobectomy 2010 Surgical History Collapsed lung left side 2008 Surgical History All teeth extracted 2016 Hospitalization History w/surgery Hospitalization History spinal meningitis age 22 Goals Section No Information Health Concerns No Information MEDICAL EQUIPMENT No Information MENTAL STATUS No Information FUNCTIONAL STATUS No Information ASSESSMENTS Encounter Date Diagnosis Assessment Notes Treatment Notes Treatm ent Clinical Notes May, Acute low back pain with rad icular symptoms, duration less than 6 weeks (ICD-10 - M54.10) PLAN OF TREATMENT Medication Medication Name Sig Start Date Stop Date AmLODIPine Besylate 10 MG TAKE 1 TABLET BY MOUTH ONCE DAILY for 90 Oxycodone HCl 5 MG 1 tablet as needed Orally q8 h prn mdd3 #30 tab should last 30 days for 30 Days May, Next Appt Details Provider Name:Krys Kiser, 2020-06-19 10 :45:00 AM, [address] [place], [address], Insurance Providers Payer Name Payer Address Payer Phone Insured Name Patient Relati onship to Insured Coverage Start Date Coverage End Date BCBS UTIEMY RICKETTS PPO [phone] [facility] [place] [id number] MAXIME MCKEON self
--- OUTSIDE RECORDS SUMMARY | 2020-07-01 12:38 | CCD ---
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 Active [id number] Problem Migraine without aura and without status migrain osus, not intractable G43.009 Active 738952713 Problem Lumbago with sciatica, left side M54.42 Active 111980806 Problem Lumbar Facet arthropathy M47.816 Active 9873269 08 Problem Paresthesia of skin R20.2 Active 87100149 Problem Other chronic pain G89.29 Active 16102381 Problem Erectile dysfunction, unspecified erectile dysfunction typ e N52.9 Active 997296240 Problem Hypertensive heart disease without heart failure I 11.9 Active 43960422 Problem Myalgia, other site M79.18 Active 05071026 ALLERGIES No Known Allergies ENCOUNTERS from 1970 to 2020-06-07 Encounter Location Date Provider Diagnosis [facility] [address] [place] [address] May, Napoleon Castro Intervertebral disc disorders with radic ulopathy, lumbar region M51.16 IMMUNIZATIONS Vaccine Route Administration [...] Education Language: Question Answer Notes Languages spoken: Indonesian Muslim: Question Answer Notes Muslim 21 Restorationist Sexual Hx: Question Answer Notes Had sex [...] FOR REFERRAL No Information VITAL SIGNS Weight 161.2 lbs May, Height 5'7" in May, BMI 25.24 kg/m2 May, Heart Rate 73 /min May, Respiratory Rate 18 /min May, Temperature 98.1 degrees Fahrenheit May, Oximetry 98% May, Blood pressure systolic 114 mm Hg May, Blood pressure diastolic 80 mm Hg May, MEDICATIONS Medication SIG (Take, Route, Frequency, Duration) Notes Start Da te End Date Status Viagra 100 MG 1 tablet as needed Orally Once a day for 8 days Active Soma 350 MG 1 tablet as needed Orally q8h mdd3 for 10 day(s) Apr, Active MethylPREDNISolone 4 MG as directed Orally as directed for 14 da y(s) Apr, Active Oxycodone HCl 5 MG 1 tablet as needed Orally q8 h prn mdd3 #30 tab should last 30 days for 30 Days Apr, Active AmLODIPine Besylate 10 MG TAKE 1 TABLET BY MOUTH ONCE DAILY for 90 Active Oxycodone HCl 5 MG 1 tablet as needed Orally Q8 H PRN FOR SEVERE PAIN EPISODES #45 TAB SHOULD LAST 30 DAYS Aug, Not- Taking Excedrin Migraine 250-250-65 MG 2 tablets Orally once daily as needed Active Gabapentin 600 MG 1 tablet Orally tid for 30 Days Active PROCEDURES No Information RESULTS No Results REASON FOR VISIT Lumbar epidural steroid injection MEDICAL (GENERAL) HISTORY Type Description Date Medical [...] Treatment Notes Treatm ent Clinical Notes May, Intervertebral disc disorder s with radiculopathy, lumbar region (ICD-10 - M51.16) PLAN OF TREATMENT Treatment Notes Test Name Order Date Medication: Gering Tablet 5mg/325mg Orally (Hydrocodone /Acetaminophen) 2020-06-07 Medication: Valium Tab 5mg Orally (Diazepam) 2020-05-18 2 Saline Lock 2020-06-07 [facility] FLUORO GUIDE SPINE INJECTION (PAIN) 2020-06-07 Completion of procedural visit when meets criteria 05-17-21 Next Appt Details Follow up with VOCATIONAL INSTRUCTOR Reason:Post lumbar epi dural steroid injection Provider Name:Krys Kiser, 2020-06-19 10 :45:00 AM, [address] [place] [address], [phone], Follow Up:Follow up with [facility] lumbar epidural steroid injection Insurance Providers Payer Name Payer Address Payer Phone Insured Name Patient Relati onship to Insured Coverage Start Date Coverage End Date BCBS UTIEMY RICKETTS PPO [phone] [facility] [employer] [place]ANI [place] [facility] [id number] MAXIME MCKEON self
--- OUTSIDE RECORDS SUMMARY | 2020-07-01 12:38 | CCD | Continuity of Care Document ---
Author Author Blas HERNANDEZ MD Organization Unknown Address [address] [place] [address] Phone [phone] Care Team Providers Care Creping Machine Operator Helper Name Role Phone Toya Bruner MD AUTM [phone] Problems Description No Information Available Social History Type Date Description Comments Sex Unknown Allergies, Adverse Reactions, Alerts Description No Information Available Medications Description No Information Available Immunizations Description No Information Available Vital Signs Date Vital Result Comment 04/26/2020 2:36pm Body Temperature 97.7 F Height 66 inches 5'6" Weight 155.25 lb BMI (Body Mass Index) 25.1 kg/m2 Results Description No Information Available Procedures Date Code Description Status 04/26/2020 22160 X-Ray Wrist Complete Completed 04/26/2020 97056 Inject/Drain Joint/Bursa Small C ompleted 02/12/2020 28488 X-Ray Elbow Complete Completed Medical Devices Description No Information Available Encounters Type Date Location Provider Dx Diagnosis Office Visit 05/27/2020 11:00a [facility] Hernandez MD M18.0 Bilateral primary osteoarth of first carpometacarp joints G56.21 Lesion of ulnar nerve, right upper limb Office Visit 04/26/2020 2:15p [place] Steven Hernandez MD M18.0 Bilateral primary osteoarth of first carpometacarp joints Assessments Date Code Description Provider 05/27/2020 M18.0 Bilateral primary os teoarthritis of first carpometacarpal joints Steven Hernandez MD 05/27/2020 G56.21 Lesion of ulnar nerve, right upp er limb Steven Hernandez MD 04/26/2020 M18.0 Bilateral primary os teoarthritis of first carpometacarpal joints Steven Hernandez MD 02/12/2020 R20.2 Paresthesia of skin Bernard Ya MD 02/12/2020 R20.0 Anesthesia of skin Lizeth. Gabriele cancino MD Plan of Treatment 05/27/2020 - Steven Hernandez MD* M18.0 Bilateral primary osteoarthritis of first carpometacarpal joints* Follow up:* 6 month zeinab hand clinton with BLB * G56.21 Lesion of ulnar nerve, right upper limb Functional Status Description No Information Available Mental Status Description No Information Available Referrals Description No Information Available
--- OUTSIDE RECORDS SUMMARY | 2020-07-01 12:38 | CCD ---
Author Author [facility] Organization 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 Active 27038855606254732 Problem Migraine without aura and without status migrain osus, not intractable G43.009 Active 058988234 Problem Lumbago with sciatica, left side M54.42 Active 338990910 Problem Lumbar Facet arthropathy M47.816 Active 8230777 08 Problem Paresthesia of skin R20.2 Active 22354088 Problem Other chronic pain G89.29 Active 66057846 Problem Erectile dysfunction, unspecified erectile dysfunction typ e N52.9 Active 888326274 Problem Hypertensive heart disease without heart failure I 11.9 Active 12263335 Problem Myalgia, other site M79.18 Active 26362223 ALLERGIES No Known Allergies ENCOUNTERS from 1970 to 2020-06-12 Encounter Location Date Provider Diagnosis [facility] [address] [place] [address] May, Krys Kiser IMMUNIZATIONS Vaccine Route Administration Date Status Pneumococcal [...] Education Language: Question Answer Notes Languages spoken: Paraguayan Christianity: Question Answer Notes Christianity 21 Judaism Sexual Hx: Question Answer Notes Had sex [...] Information RESULTS No Results REASON FOR VISIT No Information MEDICAL (GENERAL) HISTORY Type Description Date Medical [...] No Information FUNCTIONAL STATUS No Information ASSESSMENTS No Information PLAN OF TREATMENT Medication Medication Name Sig Start Date Stop Date AmLODIPine Besylate 10 MG TAKE 1 TABLET BY MOUTH ONCE DAILY for 90 Oxycodone HCl 5 MG 1 tablet as needed Orally q8 h prn mdd3 #30 tab should last 30 days for 30 Days May, Next Appt Details Provider Name:Krys Kiser, 2020-06-19 10 :45:00 AM, [address] [place] [address], [phone], Insurance Providers Payer Name Payer Address Payer Phone Insured Name Patient Relati onship to Insured Coverage Start Date Coverage End Date BCBS [facility] [id number] [facility] [employer] [place] [address] MAXIME MCKEON self
--- OUTSIDE RECORDS SUMMARY | 2020-07-01 12:39 | CCD ---
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 Active [id number] Problem Migraine without aura and without status migrain osus, not intractable G43.009 Active 413410914 Problem Lumbago with sciatica, left side M54.42 Active 799393094 Problem Lumbar Facet arthropathy M47.816 Active 9408419 08 Problem Paresthesia of skin R20.2 Active 17566041 Problem Other chronic pain G89.29 Active 35667880 Problem Erectile dysfunction, unspecified erectile dysfunction typ e N52.9 Active 871609371 Problem Hypertensive heart disease without heart failure I 11.9 Active 17117552 Problem Myalgia, other site M79.18 Active 61195156 ALLERGIES No Known Allergies ENCOUNTERS from 1970 to 2020-04-17 Encounter Location Date Provider Diagnosis [facility] [address] [place] [address] Apr, Krys Kiser Lumbar Facet arthropathy M47.816 IMMUNIZATIONS Vaccine Route Administration Date Status Pneumococcal [...] Education Language: Question Answer Notes Languages spoken: Martiniquais Pentecostalism: Question Answer Notes Pentecostalism 21 Mandaeism Sexual Hx: Question Answer Notes Had sex [...] Notes Start Da te End Date Status Meloxicam 15 MG 1 tablet Orally Once a day for 30 Active Excedrin Migraine 250-250-65 MG 2 tablets Orally once daily as needed Active Oxycodone HCl 5 MG 1 tablet as needed Orally q8 h prn mdd3 #30 tab should last 30 days for 30 Days Apr, Active Oxycodone HCl 5 MG 1 tablet as needed Orally Q8 H PRN FOR SEVERE PAIN EPISODES #45 TAB SHOULD LAST 30 DAYS Aug, Not- Taking Viagra 100 MG 1 tablet as needed Orally Once a day for 8 days Active AmLODIPine Besylate 10 MG TAKE 1 TABLET BY MOUTH ONCE DAILY for 90 Active Gabapentin 600 MG 1 tablet Orally bid for 90 Active PROCEDURES No Information RESULTS No Results REASON FOR VISIT Oxycodone Refill MEDICAL (GENERAL) HISTORY Type Description Date Medical [...] Notes Treatment Notes Treatm ent Clinical Notes Apr, Lumbar Facet arthropathy (ICD9-CM - M47.816) PLAN OF TREATMENT Medication Medication Name Sig Start Date Stop Date Gabapentin 600 MG 1 tablet Orally bid for 90 Oxycodone HCl 5 MG 1 tablet as needed Orally q8 h prn mdd3 #30 tab should last 30 days for 30 Days Apr, Next Appt Details Provider Name:Toya Bruner, 2020-04 03:30:00 PM, [address] [place] [address], [phone], Provider Name:Krys Kiser, 2020-05-21 09 :00:00 AM, [address] [place], [address], Insurance Providers Payer Name Payer Address Payer Phone Insured Name Patient Relati onship to Insured Coverage Start Date Coverage End Date BCBS [place] [facility] [id number] [facility] [place] [facility] [place] [address] MAXIME MCKEON self
--- OUTSIDE RECORDS SUMMARY | 2020-07-01 12:39 | CCD ---
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 Active 31485501020297008 Problem Migraine without aura and without status migrain osus, not intractable G43.009 Active 705360162 Problem Lumbago with sciatica, left side M54.42 Active 510987450 Problem Lumbar Facet arthropathy M47.816 Active 5029663 08 Problem Paresthesia of skin R20.2 Active 68307000 Problem Other chronic pain G89.29 Active 75842385 Problem Erectile dysfunction, unspecified erectile dysfunction typ e N52.9 Active 007391988 Problem Hypertensive heart disease without heart failure I 11.9 Active 86446528 Problem Myalgia, other site M79.18 Active 26766331 ALLERGIES No Known Allergies ENCOUNTERS from 1970 to 2020-04-02 Encounter Location Date Provider Diagnosis [facility] [address] [place] [address] Mar, Krys Kiser Lumbar Facet arthropathy M47.816 IMMUNIZATIONS [...] Education Language: Question Answer Notes Languages spoken: Bolivian Latter-Day: Question Answer Notes Latter-Day 21 [employer] Sexual Hx: Question Answer Notes Had sex [...] tablets Orally once daily as needed Active AmLODIPine Besylate 10 MG TAKE 1 TABLET BY MOUTH ONCE DAILY for 90 Active Gabapentin 600 MG 1 tablet Orally bid Mar, Active Viagra 100 MG 1 tablet as needed Orally Once a day for 8 days Active Oxycodone HCl 5 MG 1 tablet as needed Orally Q8 H PRN FOR SEVERE PAIN EPISODES #45 TAB SHOULD LAST 30 DAYS Aug, Not- Taking Oxycodone HCl 5 MG 1 tablet as needed Orally q8 h prn mdd3 #30 tab should last 30 days for 30 Days Mar, Active PROCEDURES No Information RESULTS No Results REASON FOR VISIT OXYCODONE REFILL MEDICAL (GENERAL) HISTORY Type Description Date Medical [...] Notes Treatment Notes Treatm ent Clinical Notes Mar, Lumbar Facet arthropathy (ICD9-CM - M47.816) PLAN OF TREATMENT Medication Medication Name Sig Start Date Stop Date Oxycodone HCl 5 MG 1 tablet as needed Orally q8 h prn mdd3 #30 tab should last 30 days for 30 Days Mar, Next Appt Details Provider Name:Toya Bruner, 2020-04 03:30:00 PM, [address] [place] [address], [phone], Provider Name:Krys Kiser, 2020-05-21 09 :00:00 AM, [address] [place], [address], Insurance Providers Payer Name Payer Address Payer Phone Insured Name Patient Relati onship to Insured Coverage Start Date Coverage End Date BCBS [place] PPO [id number] [facility] [employer] [place] [place] [address] MAXIME MCKEON self
--- OUTSIDE RECORDS SUMMARY | 2020-07-01 12:39 | CCD ---
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 Active 87043060690482425 Problem Migraine without aura and without status migrain osus, not intractable G43.009 Active 992545699 Problem Lumbago with sciatica, left side M54.42 Active 059017848 Problem Lumbar Facet arthropathy M47.816 Active 6443404 08 Problem Paresthesia of skin R20.2 Active 48038268 Problem Other chronic pain G89.29 Active 95316378 Problem Erectile dysfunction, unspecified erectile dysfunction typ e N52.9 Active 474474080 Problem Hypertensive heart disease without heart failure I 11.9 Active 91400010 Problem Myalgia, other site M79.18 Active 63301083 ALLERGIES No Known Allergies ENCOUNTERS from 1970 to 2020-04-11 Encounter Location Date Provider Diagnosis [facility] [address] [place] [address] Mar, Krys Rashel Lumbar Facet arthropathy M47.816 IMMUNIZATIONS Vaccine Route [...] Education Language: Question Answer Notes Languages spoken: Iraqi Restorationism: Question Answer Notes Restorationism 21 Taoist Sexual Hx: Question Answer Notes Had sex [...] Orally Once a day for 30 Active AmLODIPine Besylate 10 MG TAKE 1 TABLET BY MOUTH ONCE DAILY for 90 Active Oxycodone HCl 5 MG 1 tablet as needed Orally q8 h prn mdd3 #30 tab should last 30 days for 30 Days Mar, Active Gabapentin 600 MG 1 tablet Orally bid Mar, Active Viagra 100 MG 1 tablet as needed Orally Once a day for 8 days Active Oxycodone HCl 5 MG 1 tablet as needed Orally Q8 H PRN FOR SEVERE PAIN EPISODES #45 TAB SHOULD LAST 30 DAYS Aug, Not- Taking Excedrin Migraine 250-250-65 MG 2 tablets Orally once daily as needed Active PROCEDURES No Information RESULTS No Results [...] Details Provider Name:Toya Bruner, 2020-04 03:30:00 PM, [address] [place] [address], [phone], Provider Name:Krys Kiser, 2020-05-21 09 :00:00 AM, [address] [place], [address], Insurance Providers Payer Name Payer Address Payer Phone Insured Name Patient Relati onship to Insured Coverage Start Date Coverage End Date BCBS [place] PPO [id number] [facility] [employer] [place] [address] MAXIME MCKEON self
--- OUTSIDE RECORDS SUMMARY | 2020-07-01 12:39 | CCD ---
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 Active 50024363444240140 Problem Migraine without aura and without status migrain osus, not intractable G43.009 Active 624620844 Problem Lumbago with sciatica, left side M54.42 Active 090354569 Problem Lumbar Facet arthropathy M47.816 Active 7330661 08 Problem Paresthesia of skin R20.2 Active 03938550 Problem Other chronic pain G89.29 Active 36744382 Problem Erectile dysfunction, unspecified erectile dysfunction typ e N52.9 Active 086175957 Problem Hypertensive heart disease without heart failure I 11.9 Active 72067325 Problem Myalgia, other site M79.18 Active 43850517 ALLERGIES No Known Allergies ENCOUNTERS from 1970 to 2020-05-06 Encounter Location Date Provider Diagnosis [facility] [address] [place] [phone] Apr, Krys Rashel Lumbar Facet arthropathy M47.816 IMMUNIZATIONS [...] Education Language: Question Answer Notes Languages spoken: Northern Irish Congregational: Question Answer Notes Congregational 21 Rastafari Sexual Hx: Question Answer Notes Had sex [...] Orally Once a day for 30 Active Gabapentin 600 MG 1 tablet Orally tid for 30 Days Active Excedrin Migraine 250-250-65 MG 2 tablets [...] 30 days for 30 Days Apr, Active PROCEDURES No Information RESULTS No Results REASON FOR VISIT Refill Oxycodone MEDICAL (GENERAL) HISTORY Type Description Date Medical [...] last 30 days for 30 Days Apr, Gabapentin 600 MG 1 tablet Orally tid for 30 Days Next Appt Details Provider Name:Krys Kiser, 2020-05-21 09 :00:00 AM, [address] [place] [address], [phone], Insurance Providers Payer Name Payer Address Payer Phone Insured Name Patient Relati onship to Insured Coverage Start Date Coverage End Date BCBS [facility] [id number] [facility] [employer] [facility] [place] [address] MAXIME MCKEON self
--- OUTSIDE RECORDS SUMMARY | 2020-07-01 12:39 | CCD | Continuity of Care Document ---
Author Author Blas HERNANDEZ MD Organization Unknown Address [address] [place] [address] Phone [phone] Care Team Providers Care Mobile Device Developer Name Role Phone Toya Bruner MD AUTM [phone] Problems Description No Information Available Social History [...] Available Procedures Date Code Description Status 04/26/2020 46499 X-Ray Wrist Complete Completed 04/26/2020 31747 X-Ray Wrist Complete Completed 02/12/2020 92576 X-Ray Elbow Complete Completed Medical Devices Description No Information Available Encounters Type Date Location Provider Dx Diagnosis Office Visit 04/26/2020 2:15p [place] Steven Hernandez MD M18.12 Unil primary osteoarth of first carpometacarp joint, l hand M18.11 Unil primary osteoarth of fi rst carpometacarp joint, r hand Assessments Date Code Description Provider 04/26/2020 M18.12 Unilateral primary o steoarthritis of first carpometacarpal joint, left hand Steven Hernandez MD 04/26/2020 M18.11 Unilateral primary o steoarthritis of first carpometacarpal joint, right hand Steevn Hernandez MD 02/12/2020 R20.2 Paresthesia of skin Bernard Ya MD 02/12/2020 R20.0 Anesthesia of skin Bernard cancino MD Plan of Treatment 04/26/2020 - Steven Hernandez MD* M18.12 Unilateral primary osteoarthritis of first carpometacarpal joint, left hand* Follow up:* 3-4 weeks with blb for zeinab hand re-check * M18.11 Unilateral primary osteoarthritis of first carpometacarpal joint, right hand* New Orders:* Comfort Cool CMC Thumb Abd, Splint W/Stays (Ots Fit) - RT, Ordered: 04/26/20 Functional Status Description No Information Available Mental Status Description No Information Available Referrals Description No Information Available
--- OUTSIDE RECORDS SUMMARY | 2020-07-01 12:39 | CCD | Continuity of Care Document ---
Author Author Blas HERNANDEZ MD Organization Unknown Address [address] [place] [address] Phone [phone] Care Team Providers Care Material Assembler Name Role Phone Toya Bruner MD AUTM [phone] Problems Description No Information Available Social History [...] Available Procedures Date Code Description Status 04/26/2020 29491 Inject/Drain Joint/Bursa Small C ompleted 04/26/2020 13112 X-Ray Wrist Complete Completed 02/12/2020 89335 X-Ray Elbow Complete Completed Medical Devices Description No Information Available Encounters Type Date Location Provider Dx Diagnosis Office Visit 05/[place] M18.0 Bilateral primary osteoarth of first carpometacarp joints G56.21 Lesion of ulnar nerve, right upper limb Office Visit 04/26/2020 2:15p [place] Hernandez MD M18.0 Bilateral primary osteoarth of [...]
--- OUTSIDE RECORDS SUMMARY | 2020-07-01 12:39 | CCD ---
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 Active 67111964042556278 Problem Migraine without aura and without status migrain osus, not intractable G43.009 Active 983830746 Problem Lumbago with sciatica, left side M54.42 Active 605513039 Problem Lumbar Facet arthropathy M47.816 Active 6121776 08 Problem Paresthesia of skin R20.2 Active 48930794 Problem Other chronic pain G89.29 Active 46867293 Problem Erectile dysfunction, unspecified erectile dysfunction typ e N52.9 Active 699557561 Problem Hypertensive heart disease without heart failure I 11.9 Active 83163223 Problem Myalgia, other site M79.18 Active 21937688 ALLERGIES No Known Allergies ENCOUNTERS from 1970 to 2020-05-15 Encounter Location Date Provider Diagnosis [facility] [address] [place] [address] Apr, Krys Kiser Acute low back pain with radicular sympt oms, duration less than 6 weeks M54.10 ; Lumbar Facet arthropathy M47.816 and Chronic prescription opiate use Z79.891 IMMUNIZATIONS Vaccine Route Administration Date Status Pneumococcal [...] Education Language: Question Answer Notes Languages spoken: Japanese Moravian: Question Answer Notes Moravian 21 Anabaptism Sexual Hx: Question Answer Notes Had sex [...] FOR REFERRAL No Information VITAL SIGNS Weight 162.2 lbs Apr, Height 5'7" in Apr, BMI 25.40 kg/m2 Apr, Heart Rate 80 /min Apr, Respiratory Rate 18 /min Apr, Temperature 98.4 degrees Fahrenheit Apr, Oximetry 100% Apr, Blood pressure systolic 152 mm Hg Apr, Blood pressure diastolic 94 mm Hg Apr, MEDICATIONS Medication SIG (Take, Route, Frequency, Duration) Notes Start Da te End Date Status Excedrin Migraine 250-250-65 MG 2 tablets Orally once daily as needed Active MethylPREDNISolone 4 MG as directed Orally as directed for 14 da y(s) Apr, Active Oxycodone HCl 5 MG 1 tablet as needed Orally q8 h prn mdd3 #30 tab should last 30 days for 30 Days Apr, Active Gabapentin 600 MG 1 tablet Orally tid for 30 Days Active Viagra 100 MG 1 tablet as needed Orally Once a day for 8 days Active Soma 350 MG 1 tablet as needed Orally q8h mdd3 for 10 day(s) Apr, Active Oxycodone HCl 5 MG 1 tablet as needed Orally Q8 H PRN FOR SEVERE PAIN EPISODES #45 TAB SHOULD LAST 30 DAYS Aug, Not- Taking AmLODIPine Besylate 10 MG TAKE 1 TABLET BY MOUTH ONCE DAILY for 90 Active PROCEDURES No Information RESULTS No Results REASON FOR VISIT medication management/urine tox MEDICAL (GENERAL) HISTORY Type Description Date Medical [...] Treatment Notes Treatm ent Clinical Notes Apr, Acute low back pain with rad icular symptoms, duration less than 6 weeks (ICD-10 - M54.10) L4-5/L5-S1 lumbar epidural steroid injection. ISTOP registry reviewed and demonstrates complliance. Brings in medications which is appropriate for what was dispensed. Recent urine toxicology reviewed. No unauthorized medications. No illicit substances and prescribed medications were present. URINE TOX TODAY , Risks of narcotic/opiod medications includes but is not limited to risk of dependance/development of addiction, mood disturbance and depression, osteoporosis, hormonal and labidal changes, respiratory depression and . Patient is advised NOT to DRIVE or drink ALCOHOL while on these medications. 05/14/20 1035 Patient educated and provided with educational material for Soma, Predinsone and pre-procedure teaching and handout for Lumbar Epidural Steroid Injection, Provider and nurse reinforced importance of not driving or operating machinery while taking Soma, patient verbalized underatanding and had no questions or concerns at this time. Chari Odonnell RN, BSN Apr, Lumbar Facet arthropathy (ICD9-CM - M47.816) Apr, Chronic prescription opiate use (ICD-10 - Z79.89 1) PLAN OF TREATMENT Medication Medication Name Sig Start Date Stop Date Oxycodone HCl 5 MG 1 tablet as needed Orally q8 h prn mdd3 #30 tab should last 30 days for 30 Days Apr, Soma 350 MG 1 tablet as needed Orally q8h mdd3 for 10 day(s) Apr, MethylPREDNISolone 4 MG as directed Orally as directed for 1 4 day(s) Apr, Treatment Notes Assessment Notes Clinical Notes Acute low back pain with radicular symptoms, duration less than 6 weeks L4-5/L5-S1 lumbar epidural steroid injection.ISTOP registry reviewed and demonstrates complliance. Brings in medications which is appropriate for what was dispensed. Recent urine toxicology reviewed. No unauthorized medications. No illicit substances and prescribed medications were present.URINE TOX TODAY, Risks of narcotic/opiod medications includes but is not limited to risk of dependance/development of addiction, mood disturbance and depression, osteoporosis, hormonal and labidal changes, respiratory depression and . Patient is advised NOT to DRIVE or drink ALCOHOL while on these medications .05/14/20 1035 Patient educated and provided with educational material for Soma, Predinsone and pre-procedure teaching and handout for Lumbar Epidural Steroid Injection, Provider and nurse reinforced importance of not driving or operating machinery while taking Soma, patient verbalized underatanding and had no questions or concerns at this time. Chari Odonnell, RN, BSN Next Appt Details post procedure Reason:L4-5/L5-S1 lumbar epidural steroid injection Follow Up:post procedureL4-5/L5-S1 lumbar epidural steroid injection Insurance Providers Payer Name Payer Address Payer Phone Insured Name Patient Relati onship to Insured Coverage Start Date Coverage End Date BC [employer] O [phone] [facility] [employer] CHANI FRANKS [facility] [id number] MAXIME MCKEON self
--- OUTSIDE RECORDS SUMMARY | 2020-07-01 12:39 | CCD | Continuity of Care Document ---
Author Author Blas HERNANDEZ MD Organization Unknown Address [address] [place] [address] Phone [phone] Care Team Providers Care Wafer Cutter Name Role Phone Toya Bruner MD AUTM [phone] Problems Description No Information Available Social History [...] Available Procedures Date Code Description Status 04/26/2020 26291 Inject/Drain Joint/Bursa Small C ompleted 04/26/2020 60570 X-Ray Wrist Complete Completed 02/12/2020 02537 X-Ray Elbow Complete Completed Medical Devices Description No Information Available Encounters Type Date Location Provider Dx Diagnosis Office Visit 04/26/2020 2:15p [place] Steven Hernandez MD M18.0 Bilateral primary osteoarth of first carpometacarp joints Assessments Date Code Description Provider 04/26/2020 M18.0 Bilateral primary os teoarthritis of first carpometacarpal joints Steven Hernandez MD 02/12/2020 R20.2 Paresthesia of skin Bernard Ya MD 02/12/2020 R20.0 Anesthesia of skin Bernard cancino MD Plan of Treatment Future Appointment(s):* 05/27/2020 11:00 am - Steven Hernandez MD at [place] 04/26/2020 - Steven Hernandez MD* M18.0 Bilateral primary osteoarthritis of first carpometacarpal joints* Follow up:* 3-4 weeks with BLB for zeinab hand re-check Functional Status Description No Information Available Mental Status Description No Information Available Referrals Description No Information Available
--- OUTSIDE RECORDS SUMMARY | 2020-07-01 12:39 | CCD ---
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 Active 60108431443231772 Problem Migraine without aura and without status migrain osus, not intractable G43.009 Active 494426142 Problem Lumbago with sciatica, left side M54.42 Active 760239697 Problem Lumbar Facet arthropathy M47.816 Active 6271610 08 Problem Paresthesia of skin R20.2 Active 35009905 Problem Other chronic pain G89.29 Active 01690336 Problem Erectile dysfunction, unspecified erectile dysfunction typ e N52.9 Active 474461273 Problem Hypertensive heart disease without heart failure I 11.9 Active 11211602 Problem Myalgia, other site M79.18 Active 42960258 ALLERGIES No Known Allergies ENCOUNTERS from 1970 to 2020-04-27 Encounter Location Date Provider Diagnosis [facility] [address] [place] [address] Apr Toya Bruner IMMUNIZATIONS Vaccine Route Administration Date Status Pneumococcal [...] Education Language: Question Answer Notes Languages spoken: Swazi Mormon: Question Answer Notes Mormon 21 Oriental Orthodox Sexual Hx: Question Answer Notes Had sex [...] Information RESULTS No Results REASON FOR VISIT script issue MEDICAL (GENERAL) HISTORY Type Description Date Medical [...] Date Gabapentin 600 MG 1 tablet Orally tid for 30 Days Oxycodone HCl 5 MG 1 tablet as needed Orally q8 h prn mdd3 #30 tab should last 30 days for 30 Days Apr, Next Appt Details Provider Name:Krys Kiser, 2020-05-21 09 :00:00 AM, [address] [place], [address], Insurance Providers Payer Name Payer Address Payer Phone Insured Name Patient Relati onship to Insured Coverage Start Date Coverage End Date [facility] [place] [facility] [phone] [facility] [employer] [facility] [place] [address] MAXIME MCKEON self
--- OUTSIDE RECORDS SUMMARY | 2020-07-01 12:39 | CCD ---
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 Active [id number] Problem Migraine without aura and without status migrain osus, not intractable G43.009 Active 882195302 Problem Lumbago with sciatica, left side M54.42 Active 378694447 Problem Lumbar Facet arthropathy M47.816 Active 1398276 08 Problem Paresthesia of skin R20.2 Active 89975725 Problem Other chronic pain G89.29 Active 11562917 Problem Erectile dysfunction, unspecified erectile dysfunction typ e N52.9 Active 426041878 Problem Hypertensive heart disease without heart failure I 11.9 Active 93450106 Problem Myalgia, other site M79.18 Active 13963156 ALLERGIES No Known Allergies ENCOUNTERS from 1970 to 2020-05-22 Encounter Location Date Provider Diagnosis [facility] [address] [place] [id number] May, Krys Kiser IMMUNIZATIONS Vaccine Route Administration [...] Education Language: Question Answer Notes Languages spoken: Djib[place]ian Worship: Question Answer Notes Worship 21 Advent Sexual Hx: Question Answer Notes Had sex [...] Information RESULTS No Results REASON FOR VISIT DENIAL LUMBAR EPIDURAL STEROID INJECTION MEDICAL (GENERAL) HISTORY [...] as directed for 1 4 day(s) Apr, Insurance Providers Payer Name Payer Address Payer Phone Insured Name Patient Relati onship to Insured Coverage Start Date Coverage End Date BCBS [place] PPO [phone] [facility] [employer] [place] [address] MAXIME MCKEON self
--- OUTSIDE RECORDS SUMMARY | 2020-07-01 12:40 | CCD ---
Author Author [facility] Organization [facility] Address Unknown Phone Unavailable Care Team Providers Care Last Marker Name Role Phone Lizeth Portillo MD Unavailable Unavailable Lizeth Portillo MD Unavailable Unavailable Lizeth Portillo MD Unavailable Unavailable Lizeth Portillo MD Unavailable Unavailable Lizeth Portillo MD Unavailable Unavailable Lizeth Portillo MD Unavailable Unavailable Lizeth Portillo MD Unavailable Unavailable Lizeth Portillo MD Unavailable Unavailable Lizeth Portillo MD Unavailable Unavailable Lizeth Portillo MD Unavailable Unavailable Lizeth Portillo MD Unavailable Unavailable Lizeth Portillo MD Unavailable Unavailable Lizeth Portillo MD Unavailable Unavailable Lizeth Portillo MD Unavailable Unavailable Lizeth Portillo MD Unavailable Unavailable Lizeth Portillo MD Unavailable Unavailable Lizeth Portillo MD Unavailable Unavailable Lizeth Portillo MD Unavailable Unavailable Lizeth Portillo MD Unavailable Unavailable Lizeth Portillo MD Unavailable Unavailable Lizeth Portillo MD Unavailable Unavailable Lizeth Portillo MD Unavailable Unavailable Lizeth Portillo MD Unavailable Unavailable Lizeth Portillo MD Unavailable Unavailable Lizeth Portillo MD Unavailable Unavailable Lizeth Portillo MD Unavailable Unavailable Lizeth Portillo MD Unavailable Unavailable Lizeth Portillo MD Unavailable Unavailable Lizeth Portillo MD Unavailable Unavailable Lizeth Portillo MD Unavailable Unavailable Lizeth Portillo MD Unavailable Unavailable Lizeth Portillo MD Unavailable Unavailable Lizeth Portillo MD Unavailable Unavailable Lizeth Portillo MD Unavailable Unavailable Lizeth Portillo MD Unavailable Unavailable Lizeth Portillo MD Unavailable Unavailable Lizeth Portillo MD Unavailable Unavailable Lizeth Portillo MD Unavailable Unavailable Lizeth Portillo MD Unavailable Unavailable Lizeth Portillo MD Unavailable Unavailable Lizeth Portillo MD Unavailable Unavailable Lizeth Portillo MD Unavailable Unavailable Lizeth Portillo MD Unavailable Unavailable Lizeth Portillo MD Unavailable Unavailable Lizeth Portillo MD Unavailable Unavailable Lizeth Portillo MD Unavailable Unavailable Lizeth Portillo MD Unavailable Unavailable Lizeth Portillo MD Unavailable Unavailable Lizeth Portillo MD Unavailable Unavailable Lizeth Portillo MD Unavailable Unavailable Lizeth Portillo MD Unavailable Unavailable Lizeth Portillo MD Unavailable Unavailable Lizeth Portillo MD Unavailable Unavailable Lizeth Portillo MD Unavailable Unavailable Lizeth Portillo MD Unavailable Unavailable Lizeth Portillo MD Unavailable Unavailable Lizeth Portillo MD Unavailable Unavailable Lizeth Portillo MD Unavailable Unavailable Lizeth Portillo MD Unavailable Unavailable Lizeth Portillo MD Unavailable Unavailable Lizeth Portillo MD Unavailable Unavailable Lizeth Portillo MD Unavailable Unavailable Lizeth Portillo MD Unavailable Unavailable Lizeth Portillo MD Unavailable Unavailable Lizeth Portillo MD Unavailable Unavailable Lizeth Portillo MD Unavailable Unavailable Lizeth Portillo MD Unavailable Unavailable Lizeth Portillo MD Unavailable Unavailable Lizeth Portillo MD Unavailable Unavailable Lizeth Portillo MD Unavailable Unavailable Lizeth Portillo MD Unavailable Unavailable Lizeth Portillo MD Unavailable Unavailable Lizeth Portillo MD Unavailable Unavailable Lizeth Portillo MD Unavailable Unavailable Lizeth Portillo MD Unavailable Unavailable Lizeth Portilol MD Unavailable Unavailable Lizeth Portillo MD Unavailable Unavailable Lizeth Portillo MD Unavailable Unavailable Lizeth Portillo MD Unavailable Unavailable Lizeth Portillo MD Unavailable Unavailable Lizeth Portillo MD Unavailable Unavailable Lizeth Portillo MD Unavailable Unavailable Lizeth Portillo MD Unavailable Unavailable Lizeth Portillo MD Unavailable Unavailable Lizeth Portillo MD Unavailable Unavailable Lizeth Portillo MD Unavailable Unavailable Lizeth Portillo MD Unavailable Unavailable Lizeth Portillo MD Unavailable Unavailable Lizeth Portillo MD Unavailable Unavailable Lita Perea MD Unavailable Unavailable Lita Perea MD Unavailable Unavailable Lita Perea MD Unavailable Unavailable Lita Perea MD Unavailable Unavailable Lita Perea MD Unavailable Unavailable Lita Perea MD Unavailable Unavailable Lita Perea MD Unavailable Unavailable Lita Perea MD Unavailable Unavailable Lita Perea MD Unavailable Unavailable Lita Perea MD Unavailable Unavailable Lita Perea MD Unavailable Unavailable Lita Perea MD Unavailable Unavailable Lita Perea MD Unavailable Unavailable Lita Perea MD Unavailable Unavailable Lita Perea MD Unavailable Unavailable Lita Perea MD Unavailable Unavailable Lita Perea MD Unavailable Unavailable Lita Perea MD Unavailable Unavailable Lita Perea MD Unavailable Unavailable Lita Perea MD Unavailable Unavailable Lita Perea MD Unavailable Unavailable Lita Perea MD Unavailable Unavailable Mollison, Lita Rapp MD Unavailable Unavailable Spears, L Steven CORTEZ Unavailable Unavailable Spears, L Steven MD Unavailable Unavailable Spears, L Steven MD Unavailable Unavailable Spears, L Steven MD Unavailable Unavailable Spears, L Steven MD Unavailable Unavailable Spears, L Steven MD Unavailable Unavailable Spears, L Steven MD Unavailable Unavailable Spears, L Steven MD Unavailable Unavailable Spears, L Steven MD Unavailable Unavailable Spears, L Steven MD Unavailable Unavailable Spears, L Steven MD Unavailable Unavailable Spears, L Steven MD Unavailable Unavailable Spears, L Steven MD Unavailable Unavailable Spears, L Steven MD Unavailable Unavailable Spears, L Steven MD Unavailable Unavailable Spears, L Steven MD Unavailable Unavailable Spears, L Steven MD Unavailable Unavailable Spears, L Steven MD Unavailable Unavailable Spears, L Steven MD Unavailable Unavailable Spears, L Steven MD Unavailable Unavailable Spears, L Steven MD Unavailable Unavailable Spears, L Steven MD Unavailable Unavailable Spears, L Steven MD Unavailable Unavailable Spears, L Steven MD Unavailable Unavailable Spears, L Steven MD Unavailable Unavailable Spears, L Steven MD Unavailable Unavailable Spears, L Steven MD Unavailable Unavailable Spears, L Steven MD Unavailable Unavailable Spears, L Steven MD Unavailable Unavailable Spears, L Steven MD Unavailable Unavailable Spears, L Steven MD Unavailable Unavailable Spears, L Steven MD Unavailable Unavailable Spears, L Steven MD Unavailable Unavailable Spears, L Steven MD Unavailable Unavailable Spears, L Steven MD Unavailable Unavailable Spears, L Steven MD Unavailable Unavailable Spears, L Steven MD Unavailable Unavailable Spears, L Steven MD Unavailable Unavailable Spears, L Steven MD Unavailable Unavailable Spears, L Steven MD Unavailable Unavailable Spears, L Steven CORTEZ Unavailable Unavailable Spears, L Steven CORTEZ Unavailable Unavailable Spears, L Steven CORTEZ Unavailable Unavailable Spears, L Steven CORTEZ Unavailable Unavailable Spears, L Steven CORTEZ Unavailable Unavailable Spears, L Steven CORTEZ Unavailable Unavailable Spears, L Steven CORTEZ Unavailable Unavailable Re-disclosure Warning The records that you are about to access may contain information from federally-assisted alcohol or drug abuse programs. If such information is present, then the following federally mandated warning applies: This information has been disclosed to you from records protected by federal confidentiality rules (42 CFR part 2). The federal rules prohibit you from making any further disclosure of this information unless further disclosure is expressly permitted by the written consent of the person to whom it pertains or as otherwise permitted by 42 CFR part 2. A general authorization for the release of medical or other information is NOT sufficient for this purpose. The Federal rules restrict any use of the information to criminally investigate or prosecute any alcohol or drug abuse patient.The records that you are about to access may contain highly sensitive health information, the redisclosure of which is protected by Article 27-F of the [facility] Public Health law. If you continue you may have access to information: Regarding HIV / AIDS; Provided by facilities licensed or operated by the [facility] Office of Mental Health; or Provided by the [facility] Office for People With Developmental Disabilities. If such information is present, then the following [facility] mandated warning applies: This information has been disclosed to you from confidential records which are protected by state law. State law prohibits you from making any further disclosure of this information without the specific written consent of the person to whom it pertains, or as otherwise permitted by law. Any unauthorized further disclosure in violation of state law may result in a fine or snf sentence or both. A general authorization for the release of medical or other information is NOT sufficient authorization for further disc losure. Encounters Encounter Providers Location Date Indications Data Source(s ) Outpatient [address] [facility] [id number] 06/19/2020 12:00:00 AM EST eCW1 ([facility]) Unknown [address] [facility] [address] 06/11/2020 12:00:00 AM EST eCW1 ([facility]) Unknown [address] [facility] [id number] 06/10/2020 12:00:00 AM EST eCW1 ([facility]) (PN Proc 60) Pain Procedure 60 [address] [place] [address] 06/05/2020 12:00:00 AM EST eCW1 ([facility]) Outpatient Attender: Steven Spears MD Physical Therapy 05/27/2020 1 0:00:00 AM EST MEDENT ([facility]) Unknown [address] [facility] [id number] 05/20/2020 12:00:00 AM EST eCW1 ([facility]) Outpatient [address] [facility] [place] [address] 05/14/2020 12:00:00 AM EST eCW1 ([facility]) [place] [address] [facility] [place] [address] 05/06/2020 12:00:00 AM EST eCW1 ([facility]) Outpatient Attender: Steven Spears MD Physical Therapy 04/26/2020 0 1:15:00 PM EST MEDENT ([facility]) [place] [address] [facility] [place] [address] 04/24/2020 12:00:00 AM EST eCW1 ([facility]) [place] [address] [facility] [place] [address] 04/16/2020 12:00:00 AM EST eCW1 ([facility]) [place] [address] [facility] [place] [address] 04/09/2020 12:00:00 AM EST eCW1 ([facility]) [place] [address] [facility] [place] [address] 04/01/2020 12:00:00 AM EST eCW1 ([facility]) [place] [address] [facility] [place] [address] 03/28/2020 12:00:00 AM EST eCW1 ([facility]) [place] [address] [facility] [place] [address] 03/27/2020 12:00:00 AM EST eCW1 ([facility]) [place] [address] [facility] [place] [address] 03/27/2020 12:00:00 AM EST eCW1 ([facility]) [place] [address] [facility] [place] [address] 03/27/2020 12:00:00 AM EST eCW1 ([facility]) [place] [address] [facility] [place] [address] 03/21/2020 12:00:00 AM EST eCW1 ([facility]) [place] [address] [facility] [place] [address] 03/21/2020 12:00:00 AM EST eCW1 ([facility]) Unknown [address] [facility] [place] [address] 03/14/2020 12:00:00 AM EDT eCW1 ([facility]) Outpatient Attender: Dionte Mayer/Yayo/Christopher/Re indl 02/12/2020 01:10:00 PM EDT MEDENT ([facility]) [facility] [address] [facility] [place] [address] 01/03/2020 12:00:00 AM EDT eCW1 ([facility]) Outpatient [address] [facility] [place] [address] 11/24/2019 12:00:00 AM EDT eCW1 ([facility]) Unknown [address] [facility] [place] [address] 11/03/2019 12:00:00 AM EDT eCW1 ([facility]) [place] [address] [facility] [place] [address] 11/01/2019 12:00:00 AM EDT eCW1 ([facility]) Outpatient [address] [facility] [place] [address] 10/26/2019 12:00:00 AM EDT eCW1 ([facility]) Outpatient Attender: Dionte MORAN 10/24/2019 07:51:25 PM [facility] [address] [place] [address] 10/13/2019 12:00:00 AM EDT eCW1 ([facility]) [facility] [address] [place] [address] 10/10/2019 12:00:00 AM EDT eCW1 ([facility]) [facility] [address] [place] [address] 09/21/2019 12:00:00 AM EDT eCW1 ([facility]) [facility] [address] [place] [address] 09/20/2019 12:00:00 AM EDT eCW1 ([facility]) [facility] [address] [facility] [address] 09/20/2019 12:00:00 AM EDT eCW1 ([facility]) [facility] [address] [place] [address] 09/07/2019 12:00:00 AM EDT eCW1 ([facility]) [facility] [address] [place] [phone] 08/16/2019 12:00:00 AM EDT eCW1 ([facility]) [facility] [address] [place] [address] 08/16/2019 12:00:00 AM EDT eCW1 ([facility]) [facility] [address] [place] [address] 08/09/2019 12:00:00 AM EDT eCW1 ([facility]) [facility] [address] [place] [phone] 08/03/2019 12:00:00 AM EDT eCW1 ([facility]) [facility] [address] [place] [phone] 07/21/2019 12:00:00 AM EST eCW1 ([facility]) [facility] [address] [place] [address] 07/17/2019 12:00:00 AM EST eCW1 ([facility]) [facility] [address] [place] [address] 07/15/2019 12:00:00 AM EST eCW1 ([facility]) [facility] [address] [place] [address] 07/07/2019 12:00:00 AM EST eCW1 ([facility]) [facility] Pain [address] [address] 07/07/2019 12:00:00 AM EST eCW1 ([facility]) [facility] [address] [address] 06/12/2019 12:00:00 AM EST eCW1 ([facility]) [facility] [address] [place] [address] 06/08/2019 12:00:00 AM EST eCW1 ([facility]) [facility] [address] [address] 06/01/2019 12:00:00 AM EST eCW1 ([facility]) [address] [address] 05/24/2019 12:00:00 AM EST eCW1 ([facility]) [facility] [address] [place] [phone] 05/12/2019 12:00:00 AM EST eCW1 ([facility]) [facility] [address] [place] [address] 05/03/2019 12:00:00 AM EST eCW1 ([facility]) [facility] [address] [place] [phone] 05/03/2019 12:00:00 AM EST eCW1 ([facility]) Medications Medication Brand Name Start Date Product Form Dose Route Admi nistrative Instructions Pharmacy Instructions Status Indications Reaction Description Data Source(s) Oxycodone Hydrochloride 5 MG Oral Tablet Oxycodone HCl 5 MG Oxycodone HCl 5 MG 06/11/2020 12:00:00 AM EST 1.0 {tablet_as_needed} active Oxycodone HCl 5 MG eCW1 ([facility]) Oxycodone Hydrochloride 5 MG Oral Tablet Oxycodone HCl 5 MG Oxycodone HCl 5 MG 06/11/2020 12:00:00 AM EST 1.0 {tablet_as_needed} active Oxycodone HCl 5 MG eCW1 ([facility]) Oxycodone Hydrochloride 5 MG Oral Tablet Oxycodone HCl 5 MG Oxycodone HCl 5 MG 06/11/2020 12:00:00 AM EST 1.0 {tablet_as_needed} active Oxycodone HCl 5 MG eCW1 ([facility]) Carisoprodol 350 MG Oral Tablet [Soma] Soma 350 MG Soma 350 MG 05/14/2020 12:00:00 AM EST 1.0 {tablet_as_needed} active Soma 350 MG eCW1 ([facility]) Oxycodone Hydrochloride 5 MG Oral Tablet Oxycodone HCl 5 MG Oxycodone HCl 5 MG 05/14/2020 12:00:00 AM EST 1.0 {tablet_as_needed} active Oxycodone HCl 5 MG eCW1 ([facility]) MethylPREDNISolone 4 MG MethylPREDNISolone 4 MG 05/14/2020 12:00:00 A M EST active MethylPREDNISolone 4 MG eCW1 ([facility]) Carisoprodol 350 MG Oral Tablet [Soma] Soma 350 MG Soma 350 MG 05/14/2020 12:00:00 AM EST 1.0 {tablet_as_needed} active Soma 350 MG eCW1 ([facility]) Carisoprodol 350 MG Oral Tablet [Soma] Soma 350 MG Soma 350 MG 05/14/2020 12:00:00 AM EST 1.0 {tablet_as_needed} suspended Soma 350 MG eCW1 ([facility]) Oxycodone Hydrochloride 5 MG Oral Tablet Oxycodone HCl 5 MG Oxycodone HCl 5 MG 05/14/2020 12:00:00 AM EST 1.0 {tablet_as_needed} active Oxycodone HCl 5 MG eCW1 ([facility]) MethylPREDNISolone 4 MG MethylPREDNISolone 4 MG 05/14/2020 12:00:00 A M EST suspended MethylPREDNISolone 4 MG eCW1 ([facility]) MethylPREDNISolone 4 MG MethylPREDNISolone 4 MG 05/14/2020 12:00:00 A M EST active MethylPREDNISolone 4 MG eCW1 ([facility]) Carisoprodol 350 MG Oral Tablet [Soma] Soma 350 MG Soma 350 MG 05/14/2020 12:00:00 AM EST 1.0 {tablet_as_needed} active Soma 350 MG eCW1 ([facility]) Carisoprodol 350 MG Oral Tablet [Soma] Soma 350 MG Soma 350 MG 05/14/2020 12:00:00 AM EST 1.0 {tablet_as_needed} active Soma 350 MG eCW1 ([facility]) Oxycodone Hydrochloride 5 MG Oral Tablet Oxycodone HCl 5 MG Oxycodone HCl 5 MG 05/14/2020 12:00:00 AM EST 1.0 {tablet_as_needed} active Oxycodone HCl 5 MG eCW1 ([facility]) MethylPREDNISolone 4 MG MethylPREDNISolone 4 MG 05/14/2020 12:00:00 A M EST active MethylPREDNISolone 4 MG eCW1 ([facility]) Carisoprodol 350 MG Oral Tablet [Soma] Soma 350 MG Soma 350 MG 05/14/2020 12:00:00 AM EST 1.0 {tablet_as_needed} active Soma 350 MG eCW1 ([facility]) MethylPREDNISolone 4 MG MethylPREDNISolone 4 MG 05/14/2020 12:00:00 A M EST active MethylPREDNISolone 4 MG eCW1 ([facility]) MethylPREDNISolone 4 MG MethylPREDNISolone 4 MG 05/14/2020 12:00:00 A M EST active MethylPREDNISolone 4 MG eCW1 ([facility]) Oxycodone Hydrochloride 5 MG Oral Tablet Oxycodone HCl 5 MG Oxycodone HCl 5 MG 05/06/2020 12:00:00 AM EST 1.0 {tablet_as_needed} active Oxycodone HCl 5 MG eCW1 ([facility]) Oxycodone Hydrochloride 5 MG Oral Tablet Oxycodone HCl 5 MG Oxycodone HCl 5 MG 04/16/2020 12:00:00 AM EST 1.0 {tablet_as_needed} active Oxycodone HCl 5 MG eCW1 ([facility]) Oxycodone Hydrochloride 5 MG Oral Tablet Oxycodone HCl 5 MG Oxycodone HCl 5 MG 04/16/2020 12:00:00 AM EST 1.0 {tablet_as_needed} active Oxycodone HCl 5 MG eCW1 ([facility]) Oxycodone Hydrochloride 5 MG Oral Tablet Oxycodone HCl 5 MG Oxycodone HCl 5 MG 04/10/2020 12:00:00 AM EST 1.0 {tablet_as_needed} active Oxycodone HCl 5 MG eCW1 ([facility]) Oxycodone Hydrochloride 5 MG Oral Tablet Oxycodone HCl 5 MG Oxycodone HCl 5 MG 04/02/2020 12:00:00 AM EST 1.0 {tablet_as_needed} active Oxycodone HCl 5 MG eCW1 ([facility]) Oxycodone Hydrochloride 5 MG Oral Tablet Oxycodone HCl 5 MG Oxycodone HCl 5 MG 03/27/2020 12:00:00 AM EST 1.0 {tablet_as_needed} active Oxycodone HCl 5 MG eCW1 ([facility]) Oxycodone Hydrochloride 5 MG Oral Tablet Oxycodone HCl 5 MG Oxycodone HCl 5 MG 03/27/2020 12:00:00 AM EST 1.0 {tablet_as_needed} active Oxycodone HCl 5 MG eCW1 ([facility]) Oxycodone Hydrochloride 5 MG Oral Tablet Oxycodone HCl 5 MG Oxycodone HCl 5 MG 03/27/2020 12:00:00 AM EST 1.0 {tablet_as_needed} active Oxycodone HCl 5 MG eCW1 ([facility]) Oxycodone Hydrochloride 5 MG Oral Tablet Oxycodone HCl 5 MG Oxycodone HCl 5 MG 03/27/2020 12:00:00 AM EST 1.0 {tablet_as_needed} active Oxycodone HCl 5 MG eCW1 ([facility]) Oxycodone Hydrochloride 5 MG Oral Tablet Oxycodone HCl 5 MG Oxycodone HCl 5 MG 03/21/2020 12:00:00 AM EST 1.0 {tablet_as_needed} active Oxycodone HCl 5 MG eCW1 ([facility]) Oxycodone Hydrochloride 5 MG Oral Tablet Oxycodone HCl 5 MG Oxycodone HCl 5 MG 03/21/2020 12:00:00 AM EST 1.0 {tablet_as_needed} active Oxycodone HCl 5 MG eCW1 ([facility]) 8 HR Acetaminophen 650 MG Extended Release Oral Tablet [Tyle nol] Tylenol 8 Hour 01/18/2020 12:00:00 AM EDT active MEDENT ([facility], ) meloxicam 15 MG Oral Tablet Meloxicam 15 MG Meloxicam 15 MG 09/20/2019 12:00:00 AM EDT 1.0 {tablet} active Meloxicam 1 5 MG eCW1 ([facility]) meloxicam 15 MG Oral Tablet Meloxicam 15 MG Meloxicam 15 MG 09/20/2019 12:00:00 AM EDT 1.0 {tablet} active Meloxicam 1 5 MG eCW1 ([facility]) meloxicam 15 MG Oral Tablet Meloxicam 15 MG Meloxicam 15 MG 09/20/2019 12:00:00 AM EDT active 1 tablet eCW1 ([facility]) meloxicam 15 MG Oral Tablet Meloxicam 15 MG Meloxicam 15 MG 09/20/2019 12:00:00 AM EDT 1.0 {tablet} active Meloxicam 1 5 MG eCW1 ([facility]) Oxycodone Hydrochloride 5 MG Oral Tablet Oxycodone HCl 5 MG Oxycodone HCl 5 MG 09/08/2019 12:00:00 AM EDT 1.0 {tablet_as_needed} suspended Oxycodone HCl 5 MG eCW1 ([facility]) Oxycodone Hydrochloride 5 MG Oral Tablet Oxycodone HCl 5 MG Oxycodone HCl 5 MG 09/08/2019 12:00:00 AM EDT 1.0 {tablet_as_needed} suspended Oxycodone HCl 5 MG eCW1 ([facility]) Oxycodone Hydrochloride 5 MG Oral Tablet Oxycodone HCl 5 MG Oxycodone HCl 5 MG 09/08/2019 12:00:00 AM EDT 1.0 {tablet_as_needed} suspended Oxycodone HCl 5 MG eCW1 ([facility]) Oxycodone Hydrochloride 5 MG Oral Tablet Oxycodone HCl 5 MG Oxycodone HCl 5 MG 09/08/2019 12:00:00 AM EDT active 1 tablet as needed eCW1 ([facility]) Oxycodone Hydrochloride 5 MG Oral Tablet Oxycodone HCl 5 MG Oxycodone HCl 5 MG 09/08/2019 12:00:00 AM EDT 1.0 {tablet_as_needed} suspended Oxycodone HCl 5 MG eCW1 ([facility]) Oxycodone Hydrochloride 5 MG Oral Tablet Oxycodone HCl 5 MG Oxycodone HCl 5 MG 09/08/2019 12:00:00 AM EDT 1.0 {tablet_as_needed} active Oxycodone HCl 5 MG eCW1 ([facility]) Oxycodone Hydrochloride 5 MG Oral Tablet Oxycodone HCl 5 MG Oxycodone HCl 5 MG 09/08/2019 12:00:00 AM EDT 1.0 {tablet_as_needed} active Oxycodone HCl 5 MG eCW1 ([facility]) Oxycodone Hydrochloride 5 MG Oral Tablet Oxycodone HCl 5 MG Oxycodone HCl 5 MG 09/08/2019 12:00:00 AM EDT 1.0 {tablet_as_needed} suspended Oxycodone HCl 5 MG eCW1 ([facility]) Oxycodone Hydrochloride 5 MG Oral Tablet Oxycodone HCl 5 MG Oxycodone HCl 5 MG 09/08/2019 12:00:00 AM EDT 1.0 {tablet_as_needed} suspended Oxycodone HCl 5 MG eCW1 ([facility]) Oxycodone Hydrochloride 5 MG Oral Tablet Oxycodone HCl 5 MG Oxycodone HCl 5 MG 09/08/2019 12:00:00 AM EDT active 1 tablet as needed eCW1 ([facility]) Oxycodone Hydrochloride 5 MG Oral Tablet Oxycodone HCl 5 MG Oxycodone HCl 5 MG 09/08/2019 12:00:00 AM EDT 1.0 {tablet_as_needed} active Oxycodone HCl 5 MG eCW1 ([facility]) Oxycodone Hydrochloride 5 MG Oral Tablet Oxycodone HCl 5 MG Oxycodone HCl 5 MG 09/08/2019 12:00:00 AM EDT 1.0 {tablet_as_needed} suspended Oxycodone HCl 5 MG eCW1 ([facility]) Oxycodone Hydrochloride 5 MG Oral Tablet Oxycodone HCl 5 MG Oxycodone HCl 5 MG 09/08/2019 12:00:00 AM EDT active 1 tablet as needed eCW1 ([facility]) Oxycodone Hydrochloride 5 MG Oral Tablet Oxycodone HCl 5 MG Oxycodone HCl 5 MG 09/08/2019 12:00:00 AM EDT 1.0 {tablet_as_needed} active Oxycodone HCl 5 MG eCW1 ([facility]) Oxycodone Hydrochloride 5 MG Oral Tablet Oxycodone HCl 5 MG Oxycodone HCl 5 MG 09/08/2019 12:00:00 AM EDT 1.0 {tablet_as_needed} active Oxycodone HCl 5 MG eCW1 ([facility]) Oxycodone Hydrochloride 5 MG Oral Tablet Oxycodone HCl 5 MG Oxycodone HCl 5 MG 09/08/2019 12:00:00 AM EDT 1.0 {tablet_as_needed} suspended Oxycodone HCl 5 MG eCW1 ([facility]) Oxycodone Hydrochloride 5 MG Oral Tablet Oxycodone HCl 5 MG Oxycodone HCl 5 MG 09/08/2019 12:00:00 AM EDT 1.0 {tablet_as_needed} suspended Oxycodone HCl 5 MG eCW1 ([facility]) Oxycodone Hydrochloride 5 MG Oral Tablet Oxycodone HCl 5 MG Oxycodone HCl 5 MG 09/08/2019 12:00:00 AM EDT 1.0 {tablet_as_needed} suspended Oxycodone HCl 5 MG eCW1 ([facility]) Oxycodone Hydrochloride 5 MG Oral Tablet Oxycodone HCl 5 MG Oxycodone HCl 5 MG 09/08/2019 12:00:00 AM EDT 1.0 {tablet_as_needed} active Oxycodone HCl 5 MG eCW1 ([facility]) Oxycodone Hydrochloride 5 MG Oral Tablet Oxycodone HCl 5 MG Oxycodone HCl 5 MG 09/08/2019 12:00:00 AM EDT 1.0 {tablet_as_needed} suspended Oxycodone HCl 5 MG eCW1 ([facility]) Oxycodone Hydrochloride 5 MG Oral Tablet Oxycodone HCl 5 MG Oxycodone HCl 5 MG 09/08/2019 12:00:00 AM EDT 1.0 {tablet_as_needed} suspended Oxycodone HCl 5 MG eCW1 ([facility]) Oxycodone Hydrochloride 5 MG Oral Tablet Oxycodone HCl 5 MG Oxycodone HCl 5 MG 09/08/2019 12:00:00 AM EDT 1.0 {tablet_as_needed} suspended Oxycodone HCl 5 MG eCW1 ([facility]) Oxycodone Hydrochloride 5 MG Oral Tablet Oxycodone HCl 5 MG Oxycodone HCl 5 MG 09/08/2019 12:00:00 AM EDT 1.0 {tablet_as_needed} suspended Oxycodone HCl 5 MG eCW1 ([facility]) Oxycodone Hydrochloride 5 MG Oral Tablet Oxycodone HCl 5 MG Oxycodone HCl 5 MG 09/08/2019 12:00:00 AM EDT 1.0 {tablet_as_needed} suspended Oxycodone HCl 5 MG eCW1 ([facility]) Oxycodone Hydrochloride 5 MG Oral Tablet Oxycodone HCl 5 MG Oxycodone HCl 5 MG 09/08/2019 12:00:00 AM EDT 1.0 {tablet_as_needed} suspended Oxycodone HCl 5 MG eCW1 ([facility]) Oxycodone Hydrochloride 5 MG Oral Tablet Oxycodone HCl 5 MG Oxycodone HCl 5 MG 08/09/2019 12:00:00 AM EDT active 1 tablet as needed eCW1 ([facility]) doxycycline hyclate 100 MG Oral Capsule Doxycycline Hy clate 100 MG Doxycycline Hyclate 100 MG 07/15/2019 12:00:00 AM EST active 1 capsule eCW1 ([facility]) doxycycline hyclate 100 MG Oral Capsule Doxycycline Hy clate 100 MG Doxycycline Hyclate 100 MG 07/15/2019 12:00:00 AM EST active 1 capsule eCW1 ([facility]) Oxycodone Hydrochloride 5 MG Oral Tablet Oxycodone HCl 5 MG Oxycodone HCl 5 MG 07/07/2019 12:00:00 AM EST active 1 tablet as needed eCW1 ([facility]) Oxycodone Hydrochloride 5 MG Oral Tablet Oxycodone HCl 5 MG Oxycodone HCl 5 MG 07/07/2019 12:00:00 AM EST active 1 tablet as needed eCW1 ([facility]) Oxycodone Hydrochloride 5 MG Oral Tablet Oxycodone HCl 5 MG Oxycodone HCl 5 MG 07/07/2019 12:00:00 AM EST active 1 tablet as needed eCW1 ([facility]) Oxycodone Hydrochloride 5 MG Oral Tablet Oxycodone HCl 5 MG Oxycodone HCl 5 MG 07/07/2019 12:00:00 AM EST active 1 tablet as needed eCW1 ([facility]) Amlodipine 10 MG Oral Tablet AmLODIPine Besylate 10 MG AmLODIPine Besylate 10 MG 06/12/2019 12:00:00 AM EST 1.0 {tablet} activ e AmLODIPine Besylate 10 MG eCW1 ([facility]) Amlodipine 10 MG Oral Tablet AmLODIPine Besylate 10 MG AmLODIPine Besylate 10 MG 06/12/2019 12:00:00 AM EST 1.0 {tablet} activ e AmLODIPine Besylate 10 MG eCW1 ([facility]) Amlodipine 10 MG Oral Tablet AmLODIPine Besylate 10 MG AmLODIPine Besylate 10 MG 06/12/2019 12:00:00 AM EST 1.0 {tablet} activ e AmLODIPine Besylate 10 MG eCW1 ([facility]) Amlodipine 10 MG Oral Tablet AmLODIPine Besylate 10 MG AmLODIPine Besylate 10 MG 06/12/2019 12:00:00 AM EST active 1 tablet eCW1 ([facility]) Amlodipine 10 MG Oral Tablet AmLODIPine Besylate 10 MG AmLODIPine Besylate 10 MG 06/12/2019 12:00:00 AM EST active 1 tablet eCW1 ([facility]) Amlodipine 10 MG Oral Tablet AmLODIPine Besylate 10 MG AmLODIPine Besylate 10 MG 06/12/2019 12:00:00 AM EST active 1 tablet eCW1 ([facility]) Amlodipine 10 MG Oral Tablet AmLODIPine Besylate 10 MG AmLODIPine Besylate 10 MG 06/12/2019 12:00:00 AM EST active 1 tablet eCW1 ([facility]) Amlodipine 10 MG Oral Tablet AmLODIPine Besylate 10 MG AmLODIPine Besylate 10 MG 06/12/2019 12:00:00 AM EST active 1 tablet eCW1 ([facility]) Amlodipine 10 MG Oral Tablet AmLODIPine Besylate 10 MG AmLODIPine Besylate 10 MG 06/12/2019 12:00:00 AM EST 1.0 {tablet} activ e AmLODIPine Besylate 10 MG eCW1 ([facility]) Amlodipine 10 MG Oral Tablet AmLODIPine Besylate 10 MG AmLODIPine Besylate 10 MG 06/12/2019 12:00:00 AM EST active 1 tablet eCW1 ([facility]) Amlodipine 10 MG Oral Tablet AmLODIPine Besylate 10 MG AmLODIPine Besylate 10 MG 06/12/2019 12:00:00 AM EST active 1 tablet eCW1 ([facility]) Oxycodone Hydrochloride 5 MG Oral Tablet Oxycodone HCl 5 MG Oxycodone HCl 5 MG 06/08/2019 12:00:00 AM EST active 1 tablet as needed eCW1 ([facility]) Oxycodone Hydrochloride 5 MG Oral Tablet Oxycodone HCl 5 MG Oxycodone HCl 5 MG 06/08/2019 12:00:00 AM EST active 1 tablet as needed eCW1 ([facility]) tramadol hydrochloride 50 MG Oral Tablet Tramadol HCl 50 MG Tramadol HCl 50 MG 05/03/2019 12:00:00 AM EST active 1 to 2 tab eCW1 ([facility]) tramadol hydrochloride 50 MG Oral Tablet Tramadol HCl 50 MG Tramadol HCl 50 MG 05/03/2019 12:00:00 AM EST active 1 to 2 tab eCW1 ([facility]) Insurance Providers Payer name Policy type / Coverage type Policy ID Covered green party ID Covered green party's relationship to ho Policy Ho Plan Information [employer] [place]/ [id number] SP [id number] [employer] B [id number] S YND [id number] [employer] [place]/ [id number] SP [id number] [employer] P [id number] S YNS [id number] [employer] [place]/307 [id number] SP [id number] ANSI-Commercial [id number] ANSI-Commercial [id number] ANSI-Commercial [id number] ANSI-Commercial [id number] ANSI-Commercial [id number] ANSI-Commercial [id number] ANSI-Commercial [id number] ANSI-Commercial [id number] ANSI-Commercial [id number] ANSI-Commercial [id number] [employer] [place]/307 [id number] SP [id number] ANSI-Commercial [id number] ANSI-Commercial [id number] [employer] [place]/307 [id number] SP [id number] ANSI-Commercial [id number] ANSI-Commercial [id number] ANSI-Commercial [id number] ANSI-Commercial [id number] [employer] B [id number] S YNS [id number] ANSI-Commercial [id number] [employer] BCYO P [id number] S YNS [id number] [employer] [place]/307 [id number] SP [id number] [employer] B [id number] S YNS [id number] [employer] [place]/307 [id number] SP [id number] [employer] BC BS SIMPLY BL P [id number] S [id number] Problems, Conditions, and Diagnoses Code Display Name Description Problem Type Effective Dates Data Source(s) R20.2 [id number] Paresthesia of skin Problem 03/27/2020 12:00 :00 AM EST eCW1 ([facility]) [id number] Cervical radiculopathy Cervical radiculopathy Problem 01/18/2020 12:00:00 AM EDT MEDENT ([facility], ) [id number] Hand pain Hand pain Problem 01/18/2020 12:00:00 AM ED T MEDENT ([facility] ) [id number] Numbness of hand Numbness of hand Problem 01/18/2020 12 :00:00 AM EDT MEDENT ([facility] ) 91678166 Carpal tunnel syndrome Carpal tunnel syndrome Problem 01/18/2020 12:00:00 AM EDT MEDENT ([facility] ) M47.816 [id number] Lumbar Facet arthropathy Problem 10/26/2019 12:00:00 AM EDT eCW1 ([facility]) M79.18 [id number] Myalgia, other site Problem 07/24/2019 12:00 :00 AM EDT eCW1 ([facility]) M79.18 63332915 Myalgia, other site Problem 07/24/2019 12:00 :00 AM EDT eCW1 ([facility]) I11.9 [id number] Hypertensive heart disease without heart failure Problem 06/12/2019 12:00:00 AM EST eCW1 ([facility]) I11.9 61255773 Hypertensive heart disease without heart failure Problem 06/12/2019 12:00:00 AM EST eCW1 ([facility]) Surgeries/Procedures Procedure Description Date Indications Data Source(s) Pain Procedure Log 06/19/2020 12:00:00 AM EST eCW1 ([facility]) ARTHROCENTESIS ASPIR&/INJECTION SMALL JT/BURSA 020 12:00:00 AM EST MEDENT ([facility] ) RADEX WRIST COMPLETE MINIMUM 3 VIEWS 04/26/2020 12:00: 00 AM EST MEDENT ([facility] ) RADEX WRIST COMPLETE MINIMUM 3 VIEWS 04/26/2020 12:00: 00 AM EST MEDENT ([facility] ) RADEX ELBOW COMPLETE MINIMUM 3 VIEWS 02/12/2020 12:00: 00 AM EDT MEDENT ([facility] ) Needle electromyography, each extremity, with related paraspinal areas, when performed, done with nerve conduction, amplitude and latency/velocity study; complete, five or more muscles studied, innervated by three or more nerves or four or more spinal levels (list separately in addition to the code for primary procedure). 01/18/2020 12:00:00 AM EDT MEDEN T ([facility], ) Needle Electromyography Non Extremity Done With Nerve Conduc tion 01/18/2020 12:00:00 AM EDT MEDENT ([facility] ) Nerve Conduction 9-10 Studies 01/18/2020 12:00:00 AM E DT MEDENT ([facility] ) ESTABILISHED PATIENT [facility] CHARGE 020 12:00:00 AM EDT eCW1 ([facility]) PHYSICIAN TELEPHONE EVALUATION 11-20 MIN 08/16/2019 12 :00:00 AM EDT eCW1 ([facility]) INJ TRIGGER POINT 1/2 MUSCL 07/21/2019 12:00:00 AM EST eCW1 ([facility]) STREP A ASSAY W/OPTIC 07/15/2019 12:00:00 AM EST eCW1 ([facility]) Influenza A+B 07/15/2019 12:00:00 AM EST eCW1 ([facility]) Results ID Date Data Source [id number] 05/31/2020 10:00:00 AM EST [facility] Name Value Range Interpretation Code Description Data Monica rce(s) Supporting Document(s) SARS coronavirus 2 RNA Not Detected [facility] [place] This lab was ordered by [facility] and reported by [facility]. ID Date Data Source [id number] 01/19/2020 10:00:00 AM EDT [facility] Name Value Range Interpretation Code Description Data Monica rce(s) Supporting Document(s) SARS coronavirus 2 RNA [facility] This lab was ordered by [facility] and reported by [facility]. ID Date Data Source [id number] 11/20/2019 10:10:00 AM EDT [facility] Name Value Range Interpretation Code Description Data Monica rce(s) Supporting Document(s) SARS coronavirus 2 RNA [facility] This lab was ordered by [facility] and reported by [facility]. ID Date Data Source [id number] 10/07/2019 08:00:00 AM EDT [facility] Name Value Range Interpretation Code Description Data Monica rce(s) Supporting Document(s) SARS CORONAVIRUS 2 RNA [facility] This lab was ordered by [facility] and reported by [facility]. ID Date Data Source GATS (NEGATIVE STREP SCREEN) 07/15/2019 12:00:00 AM EST eCW1 ([facility]) Name Value Range Interpretation Code Description Data Monica rce(s) Supporting Document(s) FULL REPORT IN LAB NOTES (eCW and [facility]). GATS CULTURE (NEG STREP SCR) eCW1 ([facility]) Procedure Social History Code Duration Value Status Description Data Source(s ) Smoking 06/19/2020 12:00:00 AM EST Former Smoker completed Former Smoker eCW1 ([facility]) Smoking 06/05/2020 12:00:00 AM EST Former Smoker completed Former Smoker eCW1 ([facility]) Smoking 06/05/2020 12:00:00 AM EST Former Smoker completed Former Smoker eCW1 ([facility]) Smoking 06/05/2020 12:00:00 AM EST Former Smoker completed Former Smoker eCW1 ([facility]) Smoking 05/14/2020 12:00:00 AM EST Former Smoker completed Former Smoker eCW1 ([facility]) Smoking 05/14/2020 12:00:00 AM EST Former Smoker completed Former Smoker eCW1 ([facility]) Smoking 03/21/2020 12:00:00 AM EST Former Smoker completed Former Smoker eCW1 ([facility]) Smoking 03/21/2020 12:00:00 AM EST Former Smoker completed Former Smoker eCW1 ([facility]) Smoking 03/21/2020 12:00:00 AM EST Former Smoker completed Former Smoker eCW1 ([facility]) Smoking 03/21/2020 12:00:00 AM EST Former Smoker completed Former Smoker eCW1 ([facility]) Smoking 03/21/2020 12:00:00 AM EST Former Smoker completed Former Smoker eCW1 ([facility]) Smoking 03/21/2020 12:00:00 AM EST Former Smoker completed Former Smoker eCW1 ([facility]) Smoking 03/21/2020 12:00:00 AM EST Former Smoker completed Former Smoker eCW1 ([facility]) Smoking 03/21/2020 12:00:00 AM EST Former Smoker completed Former Smoker eCW1 ([facility]) Smoking 03/21/2020 12:00:00 AM EST Former Smoker completed Former Smoker eCW1 ([facility]) Smoking 03/21/2020 12:00:00 AM EST Former Smoker completed Former Smoker eCW1 ([facility]) Smoking 03/21/2020 12:00:00 AM EST Former Smoker completed Former Smoker eCW1 ([facility]) Smoking 11/24/2019 12:00:00 AM EDT Former Smoker completed Former Smoker eCW1 ([facility]) Smoking 11/24/2019 12:00:00 AM EDT Former Smoker completed Former Smoker eCW1 ([facility]) Smoking 10/26/2019 12:00:00 AM EDT Former Smoker completed Former Smoker eCW1 ([facility]) Smoking 10/26/2019 12:00:00 AM EDT Former Smoker completed Former Smoker eCW1 ([facility]) Smoking 10/26/2019 12:00:00 AM EDT Former Smoker completed Former Smoker eCW1 ([facility]) Vital Signs ID Date Data Source UNK Name Value Range Interpretation Code Description Data Source(s) Diastolic blood pressure 97 mm[Hg] 97 mm[Hg] eCW1 ([facility]) Systolic blood pressure 135 mm[Hg] 135 mm[Hg] e CW1 ([facility]) Body temperature 98.0 [degF] 98.0 [degF] eCW1 ( [facility]) Respiratory rate 18 /min 18 /min eCW1 ([facility]) Heart rate 72 /min 72 /min eCW1 ([facility]) Body mass index (BMI) [Ratio] 25.71 kg/m2 25.71 kg/m2 eCW1 ([facility]) Body height [in_i] eCW1 ([facility]) Body weight 164.2 [lb_av] 164.2 [lb_av] eCW1 ([facility]) Diastolic blood pressure 80 mm[Hg] 80 mm[Hg] eCW1 ([facility]) Systolic blood pressure 114 mm[Hg] 114 mm[Hg] e CW1 ([facility]) Body temperature 98.1 [degF] 98.1 [degF] eCW1 ( [facility]) Respiratory rate 18 /min 18 /min eCW1 ([facility]) Heart rate 73 /min 73 /min eCW1 ([facility]) Body mass index (BMI) [Ratio] 25.24 kg/m2 25.24 kg/m2 eCW1 ([facility]) Body height [in_i] eCW1 ([facility]) Body weight 161.2 [lb_av] 161.2 [lb_av] eCW1 ([facility]) Diastolic blood pressure 94 mm[Hg] 94 mm[Hg] eCW1 ([facility]) Systolic blood pressure 152 mm[Hg] 152 mm[Hg] e CW1 ([facility]) Body temperature 98.4 [degF] 98.4 [degF] eCW1 ( [facility]) Respiratory rate 18 /min 18 /min eCW1 ([facility]) Heart rate 80 /min 80 /min eCW1 ([facility]) Body mass index (BMI) [Ratio] 25.40 kg/m2 25.40 kg/m2 W1 ([facility]) Body height [in_i] eCW1 ([facility]) Body weight 162.2 [lb_av] 162.2 [lb_av] eCW1 ([facility]) Body mass index (BMI) [Ratio] 25.1 kg/m2 25.1 k g/m2 MEDENT ([facility] ) Body weight 155.25 [lb_av] 155.25 [lb_av] MEDEN T ([facility] ) Body height 66 [in_i] 66 [in_i] MEDENT ([facility] ) 5'6" Body temperature 97.7 [degF] 97.7 [degF] MEDENT ([facility] ) Diastolic blood pressure 70 mm[Hg] 70 mm[Hg] eCW1 ([facility]) Systolic blood pressure 170 mm[Hg] 170 mm[Hg] e CW1 ([facility]) Body temperature 98.9 [degF] 98.9 [degF] eCW1 ( [facility]) Respiratory rate 18 /min 18 /min eCW1 ([facility]) Heart rate 80 /min 80 /min eCW1 ([facility]) Body mass index (BMI) [Ratio] 24.56 kg/m2 24.56 kg/m2 eCW1 ([facility]) Body height [in_i] eCW1 ([facility]) Body weight 156.8 [lb_av] 156.8 [lb_av] eCW1 ([facility]) Body weight 70.308 kg 70.308 kg MEDENT ([facility], ) Body mass index (BMI) [Ratio] 24.3 kg/m2 24.3 k g/m2 MEDENT ([facility], ) Body weight 155.00 [lb_av] 155.00 [lb_av] MEDEN T ([facility], ) Body height 67 [in_i] 67 [in_i] MEDENT ([facility], ) 5'7" Body temperature 97.6 [degF] 97.6 [degF] MEDENT ([facility], ) Body mass index (BMI) [Ratio] 22.7 kg/m2 22.7 k g/m2 MEDENT ([facility] ) Body weight 145.00 [lb_av] 145.00 [lb_av] MEDEN T ([facility], ) Body height 67 [in_i] 67 [in_i] MEDENT ([facility], ) 5'7" Heart rate 72 /min 72 /min MEDENT ([facility] ) Diastolic blood pressure 80 mm[Hg] 80 mm[Hg] MEDENT ([facility] ) Systolic blood pressure 120 mm[Hg] 120 mm[Hg] M EDENT ([facility], ) Diastolic blood pressure 93 mm[Hg] 93 mm[Hg] eCW1 ([facility]) Systolic blood pressure 138 mm[Hg] 138 mm[Hg] e CW1 ([facility]) Body temperature 97.2 [degF] 97.2 [degF] eCW1 ( [facility]) Respiratory rate 16 /min 16 /min eCW1 ([facility]) Heart rate 71 /min 71 /min eCW1 ([facility]) Body mass index (BMI) [Ratio] 22.83 kg/m2 22.83 kg/m2 W1 ([facility]) Body height [in_i] eCW1 ([facility]) Body weight 145.8 [lb_av] 145.8 [lb_av] eCW1 ([facility]) Diastolic blood pressure 83 mm[Hg] 83 mm[Hg] eCW1 ([facility]) Systolic blood pressure 136 mm[Hg] 136 mm[Hg] e CW1 ([facility]) Body temperature 98.6 [degF] 98.6 [degF] eCW1 ( [facility]) Respiratory rate 16 /min 16 /min eCW1 ([facility]) Heart rate 84 /min 84 /min eCW1 ([facility]) Body mass index (BMI) [Ratio] 23.11 kg/m2 23.11 kg/m2 W1 ([facility]) Body height [in_i] eCW1 ([facility]) Body weight 147.6 [lb_av] 147.6 [lb_av] eCW1 ([facility]) Diastolic blood pressure 77 mm[Hg] 77 mm[Hg] eCW1 ([facility]) Systolic blood pressure 116 mm[Hg] 116 mm[Hg] e CW1 ([facility]) Body temperature 99 [degF] 99 [degF] eCW1 ([facility]) Respiratory rate 18 /min 18 /min eCW1 ([facility]) Heart rate 72 /min 72 /min eCW1 ([facility]) Body mass index (BMI) [Ratio] 22.71 kg/m2 22.71 kg/m2 eCW1 ([facility]) Body height [in_us] eCW1 ([facility]) Body weight Measured 145 [lb_av] 145 [lb_av] eC W1 ([facility]) Diastolic blood pressure 94 mm[Hg] 94 mm[Hg] eCW1 ([facility]) Systolic blood pressure 145 mm[Hg] 145 mm[Hg] e CW1 ([facility]) Body temperature 98.1 [degF] 98.1 [degF] eCW1 ( [facility]) Respiratory rate 18 /min 18 /min eCW1 ([facility]) Heart rate 81 /min 81 /min eCW1 ([facility]) Body mass index (BMI) [Ratio] 22.52 kg/m2 22.52 kg/m2 W1 ([facility]) Body height [in_us] eCW1 ([facility]) Body weight Measured 143.8 [lb_av] 143.8 [lb_av ] eCW1 ([facility]) Diastolic blood pressure 85 mm[Hg] 85 mm[Hg] eCW1 ([facility]) Systolic blood pressure 119 mm[Hg] 119 mm[Hg] e CW1 ([facility]) Body temperature 97.1 [degF] 97.1 [degF] eCW1 ( [facility]) Respiratory rate 18 /min 18 /min eCW1 ([facility]) Heart rate 92 /min 92 /min eCW1 ([facility]) Body mass index (BMI) [Ratio] 23.21 kg/m2 23.21 kg/m2 eCW1 ([facility]) Body height [in_us] eCW1 ([facility]) Body weight Measured 148.2 [lb_av] 148.2 [lb_av ] eCW1 ([facility]) Body weight Measured 152.8 [lb_av] 152.8 [lb_av ] eCW1 ([facility]) Diastolic blood pressure 86 mm[Hg] 86 mm[Hg] eCW1 ([facility]) Systolic blood pressure 140 mm[Hg] 140 mm[Hg] e CW1 ([facility]) Body temperature 98 [degF] 98 [degF] eCW1 ([facility]) Respiratory rate 18 /min 18 /min eCW1 ([facility]) Heart rate 84 /min 84 /min eCW1 ([facility]) Body mass index (BMI) [Ratio] 23.93 kg/m2 23.93 kg/m2 eCW1 ([facility]) Body height [in_us] eCW1 ([facility]) Diastolic blood pressure 83 mm[Hg] 83 mm[Hg] eCW1 ([facility]) Systolic blood pressure 124 mm[Hg] 124 mm[Hg] e CW1 ([facility]) Body temperature 99.3 [degF] 99.3 [degF] eCW1 ( [facility]) Respiratory rate 18 /min 18 /min eCW1 ([facility]) Heart rate 92 /min 92 /min eCW1 ([facility]) Body mass index (BMI) [Ratio] 23.80 kg/m2 23.80 kg/m2 eCW1 ([facility]) Body height [in_us] eCW1 ([facility]) Body weight Measured 152 [lb_av] 152 [lb_av] eC W1 ([facility]) Diastolic blood pressure 72 mm[Hg] 72 mm[Hg] eCW1 ([facility]) Systolic blood pressure 146 mm[Hg] 146 mm[Hg] e CW1 ([facility]) Body temperature 99.0 [degF] 99.0 [degF] eCW1 ( [facility]) Respiratory rate 18 /min 18 /min eCW1 ([facility]) Heart rate 87 /min 87 /min eCW1 ([facility]) Body mass index (BMI) [Ratio] 23.45 kg/m2 23.45 kg/m2 eCW1 ([facility]) Body height [in_us] eCW1 ([facility]) Body weight Measured [lb_av] eCW1 ([facility]) Diastolic blood pressure 82 mm[Hg] 82 mm[Hg] eCW1 ([facility]) Systolic blood pressure 140 mm[Hg] 140 mm[Hg] e CW1 ([facility]) Body temperature 97.6 [degF] 97.6 [degF] eCW1 ( [facility]) Respiratory rate 18 /min 18 /min eCW1 ([facility]) Heart rate 70 /min 70 /min eCW1 ([facility]) Body mass index (BMI) [Ratio] 23.18 kg/m2 23.18 kg/m2 eCW1 ([facility]) Body height [in_us] eCW1 ([facility]) Body weight Measured 148 [lb_av] 148 [lb_av] eC W1 ([facility]) Diastolic blood pressure 85 mm[Hg] 85 mm[Hg] eCW1 ([facility]) Systolic blood pressure 155 mm[Hg] 155 mm[Hg] e CW1 ([facility]) Body temperature 98.3 [degF] 98.3 [degF] eCW1 ( [facility]) Respiratory rate 18 /min 18 /min eCW1 ([facility]) Heart rate 68 /min 68 /min eCW1 ([facility]) Body mass index (BMI) [Ratio] 23.30 kg/m2 23.30 kg/m2 eCW1 ([facility]) Body height [in_us] eCW1 ([facility]) Body weight Measured 148.8 [lb_av] 148.8 [lb_av ] eCW1 ([facility]) Patient Treatment Plan of Care Planned Activity Planned Date Details Description Data Source (s) Oxycodone Hydrochloride 5 MG Oral Tablet 06/11/2020 12:00:00 AM EST eCW1 ([facility]) Oxycodone Hydrochloride 5 MG Oral Tablet 06/11/2020 12:00:00 AM EST eCW1 ([facility]) Carisoprodol 350 MG Oral Tablet [Soma] 05/14/2020 12:00:00 AM EST eCW1 ([facility]) Oxycodone Hydrochloride 5 MG Oral Tablet 05/14/2020 12:00:00 AM EST eCW1 ([facility]) MethylPREDNISolone 4 MG 05/14/2020 12:00:00 AM EST eCW1 ([facility]) Carisoprodol 350 MG Oral Tablet [Soma] 05/14/2020 12:00:00 AM EST eCW1 ([facility]) Oxycodone Hydrochloride 5 MG Oral Tablet 05/14/2020 12:00:00 AM EST eCW1 ([facility]) MethylPREDNISolone 4 MG 05/14/2020 12:00:00 AM EST eCW1 ([facility]) Oxycodone Hydrochloride 5 MG Oral Tablet 05/06/2020 12:00:00 AM EST eCW1 ([facility]) Oxycodone Hydrochloride 5 MG Oral Tablet 04/16/2020 12:00:00 AM EST eCW1 ([facility]) Oxycodone Hydrochloride 5 MG Oral Tablet 04/16/2020 12:00:00 AM EST eCW1 ([facility]) Oxycodone Hydrochloride 5 MG Oral Tablet 04/10/2020 12:00:00 AM EST eCW1 ([facility]) Oxycodone Hydrochloride 5 MG Oral Tablet 04/02/2020 12:00:00 AM EST eCW1 ([facility]) Oxycodone Hydrochloride 5 MG Oral Tablet 03/27/2020 12:00:00 AM EST eCW1 ([facility]) Oxycodone Hydrochloride 5 MG Oral Tablet 03/27/2020 12:00:00 AM EST eCW1 ([facility]) Oxycodone Hydrochloride 5 MG Oral Tablet 03/27/2020 12:00:00 AM EST eCW1 ([facility]) Oxycodone Hydrochloride 5 MG Oral Tablet 03/27/2020 12:00:00 AM EST eCW1 ([facility]) Oxycodone Hydrochloride 5 MG Oral Tablet 03/21/2020 12:00:00 AM EST eCW1 ([facility]) Oxycodone Hydrochloride 5 MG Oral Tablet 03/21/2020 12:00:00 AM EST eCW1 ([facility]) meloxicam 15 MG Oral Tablet 09/20/2019 12:00:00 AM EDT eCW1 ([facility]) Oxycodone Hydrochloride 5 MG Oral Tablet 09/08/2019 12:00:00 AM EDT eCW1 ([facility]) Oxycodone Hydrochloride 5 MG Oral Tablet 09/08/2019 12:00:00 AM EDT eCW1 ([facility]) Oxycodone Hydrochloride 5 MG Oral Tablet 08/09/2019 12:00:00 AM EDT eCW1 ([facility]) doxycycline hyclate 100 MG Oral Capsule 07/15/2019 12:00:00 AM EST eCW1 ([facility]) Oxycodone Hydrochloride 5 MG Oral Tablet 07/07/2019 12:00:00 AM EST eCW1 ([facility]) Amlodipine 10 MG Oral Tablet 06/12/2019 12:00:00 AM EST eCW1 ([facility]) Oxycodone Hydrochloride 5 MG Oral Tablet 06/08/2019 12:00:00 AM EST eCW1 ([facility]) tramadol hydrochloride 50 MG Oral Tablet 05/03/2019 12:00:00 AM EST eCW1 ([facility]) tramadol hydrochloride 50 MG Oral Tablet 05/03/2019 12:00:00 AM EST eCW1 ([facility])
[2020-07-01] MEDS ORDERED: ACETAMINOPHEN 500 MG TAB PO ONE (13:45)
--- NOTE | 2020-07-01 14:04 | REP ---
INDICATION: L hip pain. COMPARISON: None. TECHNIQUE: AP view of the pelvis and AP and frogleg views of the left hip are provided. FINDINGS: The bony pelvic ring is intact. No fracture is seen. No bony destructive lesion is observed. Sacrum and SI joints are intact. Symphysis pubis is unremarkable. Femoral heads are smooth and rounded. Hip joint spaces are preserved. Periarticular soft tissues are unremarkable. There are degenerative disc and facet changes in the lumbar spine. IMPRESSION: No acute bony abnormality. <Electronically signed by Gualberto Jimenes > 07/01/20 [id number]
--- OUTSIDE RECORDS SUMMARY | 2020-07-01 14:46 | CCD ---
Author Author [facility] Organization [facility] Address Unknown Phone Unavailable Care Team Providers Care Colon Therapist Name Role Phone Lizeth Portillo MD Unavailable Unavailable Lizeth Portillo MD Unavailable Unavailable Lizeth Potrillo MD Unavailable Unavailable Lizeth Portillo MD Unavailable [...] Unavailable Unavailable Lizeth Portillo MD Unavailable Unavailable iLzeth Portillo MD Unavailable Unavailable Lizeth Portillo MD [...] Unavailable Lita Perea MD Unavailable Unavailable Lita Peera MD Unavailable Unavailable Lita Perea MD Unavailable Unavailable Lita Perea MD Unavailable Unavailable Lita Perea MD Unavailable Unavailable Lita Perea MD Unavailable Unavailable iLta Perea MD Unavailable Unavailable Lita Perea MD [...] is protected by Article 27-F [address] the [facility] Public Health law. If you continue you may have access to information: Regarding HIV / AIDS; Provided by facilities licensed or operated by the [facility] Office of Mental Health; or Provided by the [facility] Office for People With Developmental Disabilities. If such information is present, then the following [facility] mandated warning applies: This information has [...] law may result in a fine or chcf sentence or both. A general authorization for the release of medical or other information is NOT sufficient authorization for further disc losure. Encounters Encounter Providers Location Date Indications Data Source(s ) Outpatient [address] [facility] [id number] 06/19/2020 12:00:00 AM EST eCW1 ([facility]) Unknown [address] [facility] [address] 06/11/2020 12:00:00 AM EST eCW1 ([facility]) Unknown [address] [facility] [address] 06/10/2020 12:00:00 AM EST eCW1 ([facility]) (PN Proc 60) Pain Procedure 60 [address] [place] [address] 06/05/2020 12:00:00 AM EST eCW1 ([facility]) Outpatient Attender: Steven Spears MD Physical Therapy 05/27/2020 1 0:00:00 AM EST MEDENT ([facility]) Unknown [address] [facility] [id number] 05/20/2020 12:00:00 AM EST eCW1 ([facility]) Outpatient [address] [facility] [place] [address] 05/14/2020 12:00:00 AM EST eCW1 ([facility]) Unknown [address] [facility] [place] [address] 05/06/2020 12:00:00 AM EST eCW1 ([facility]) Outpatient Attender: Steven Spears MD Physical Therapy 04/26/2020 0 1:15:00 PM EST MEDENT ([facility]) Unknown [address] [facility] [place] [address] 04/24/2020 12:00:00 AM EST eCW1 ([facility]) [place] [address] [facility] [place] [address] 04/16/2020 12:00:00 AM EST eCW1 ([facility]) [place] [address] [facility] [place] [address] 04/09/2020 12:00:00 AM EST eCW1 ([facility]) [place] [address] [facility] [place] [address] 04/01/2020 12:00:00 AM EST eCW1 ([facility]) Unknown [address] [facility] [address] 03/28/2020 12:00:00 AM EST eCW1 ([facility]) Unknown [address] [facility] [place] [address] 03/27/2020 12:00:00 AM EST eCW1 ([facility]) Unknown [address] [facility] [place] [address] 03/27/2020 12:00:00 AM EST eCW1 ([facility]) Unknown [address] [facility] [place] [address] 03/27/2020 12:00:00 AM EST eCW1 ([facility]) Unknown [address] [facility] [place] [address] 03/21/2020 12:00:00 AM EST eCW1 ([facility]) Out[place] [address] [facility] [place] [address] 03/21/2020 12:00:00 AM EST eCW1 ([facility]) Unknown [address] [facility] [place] [address] 03/14/2020 12:00:00 AM EDT eCW1 ([facility]) Outpatient Attender: Dionte Mayer/Yayo/Christopher/Re indl 02/12/2020 01:10:00 PM EDT MEDENT ([facility]) [facility] [address] [facility] [address] 01/03/2020 12:00:00 AM EDT eCW1 ([facility]) Outpatient [address] [facility] [place] [address] 11/24/2019 12:00:00 AM EDT eCW1 ([facility]) Unknown [address] [facility] [place] [address] 11/03/2019 12:00:00 AM EDT eCW1 ([facility]) Unknown [address] [facility] [place] [address] 11/01/2019 12:00:00 AM EDT eCW1 ([facility]) Outpatient [address] [facility] [place] [address] 10/26/2019 12:00:00 AM EDT eCW1 ([facility]) Outpatient Attender: Dionte MORAN 10/24/2019 07:51:25 PM [facility]T [facility] [address] [place] [address] 10/13/2019 12:00:00 AM EDT eCW1 ([facility]) [facility] [address] [place] [address] 10/10/2019 12:00:00 AM EDT eCW1 ([facility]) [facility] [address] [place] [address] 09/21/2019 12:00:00 AM EDT eCW1 ([facility]) [facility] [address] [place] [address] 09/20/2019 12:00:00 AM EDT eCW1 ([facility]) [facility] [address] [facility] [address] 09/20/2019 12:00:00 AM EDT eCW1 ([facility]) [facility] Pain Center [address] [place] [phone] 09/07/2019 12:00:00 AM EDT eCW1 ([facility]) [facility] Pain Center [address] [place] [address] 08/16/2019 12:00:00 AM EDT eCW1 ([facility]) [facility] [place] [address] [place] [phone] 08/16/2019 12:00:00 AM EDT eCW1 ([facility]) [facility] Pain Center [address] [place] [phone] 08/09/2019 12:00:00 AM EDT eCW1 ([facility]) [facility] [place] [address] [place] [phone] 08/03/2019 12:00:00 AM EDT eCW1 ([facility]) [facility] Pain Center [address] [place] [phone] 07/21/2019 12:00:00 AM EST eCW1 ([facility]) [facility] [place] [address] [place] [phone] 07/17/2019 12:00:00 AM EST eCW1 ([facility]) [facility] [address] [place] [address] 07/15/2019 12:00:00 AM EST eCW1 ([facility]) [facility] Pain Center [address] [place] [phone] 07/07/2019 12:00:00 AM EST eCW1 ([facility]) [facility] Pain [address] [address] 07/07/2019 12:00:00 AM EST [facility] [address] [address] 06/12/2019 12:00:00 AM EST eCW1 ([facility]) [facility] Pain Center [address] [place] [phone] 06/08/2019 12:00:00 AM EST eCW1 ([facility]) [facility] [address] [address] 06/01/2019 12:00:00 AM EST eCW1 ([facility]) [address] [address] 05/24/2019 12:00:00 AM EST eCW1 ([facility]) [facility] Pain Center [address] [place] [phone] 05/12/2019 12:00:00 AM EST eCW1 ([facility]) [facility] Pain Center [address] [place] [phone] 05/03/2019 12:00:00 AM EST eCW1 ([facility]) [facility] Pain Center [address] [place] [phone] 05/03/2019 12:00:00 AM EST eCW1 ([facility]) Medications Medication Brand Name Start Date Product Form Dose Route Admi nistrative Instructions Pharmacy Instructions Status Indications Reaction Description Data Source(s) Oxycodone Hydrochloride 5 MG Oral Tablet Oxycodone HCl 5 MG Oxycodone HCl 5 MG 06/11/2020 12:00:00 AM EST 1.0 {tablet_as_needed} active Oxycodone HCl 5 MG eCW1 ([facility]) Oxycodone Hydrochloride 5 MG Oral Tablet Oxycodone HCl 5 MG Oxycodone HCl 5 MG 06/11/2020 12:00:00 AM EST 1.0 {tablet_as_needed} active Oxycodone HCl 5 MG eCW1 ([facility]) Oxycodone Hydrochloride 5 MG Oral Tablet Oxycodone HCl 5 MG Oxycodone HCl 5 MG 06/11/2020 12:00:00 AM EST 1.0 {tablet_as_needed} active Oxycodone HCl 5 MG eCW1 ([facility]) Carisoprodol 350 MG Oral Tablet [Soma] Soma 350 MG Soma 350 MG 05/14/2020 12:00:00 AM EST 1.0 {tablet_as_needed} active Soma 350 MG eCW1 ([facility]) Oxycodone Hydrochloride 5 MG Oral Tablet Oxycodone HCl 5 MG Oxycodone HCl 5 MG 05/14/2020 12:00:00 AM EST 1.0 {tablet_as_needed} active Oxycodone HCl 5 MG eCW1 ([facility]) MethylPREDNISolone 4 MG MethylPREDNISolone 4 MG 05/14/2020 12:00:00 A M EST active MethylPREDNISolone 4 MG eCW1 ([facility]) Carisoprodol 350 MG Oral Tablet [Soma] Soma 350 MG Soma 350 MG 05/14/2020 12:00:00 AM EST 1.0 {tablet_as_needed} active Soma 350 MG eCW1 ([facility]) Carisoprodol 350 MG Oral Tablet [Soma] Soma 350 MG Soma 350 MG 05/14/2020 12:00:00 AM EST 1.0 {tablet_as_needed} suspended Soma 350 MG eCW1 ([facility]) Oxycodone Hydrochloride 5 MG Oral Tablet Oxycodone HCl 5 MG Oxycodone HCl 5 MG 05/14/2020 12:00:00 AM EST 1.0 {tablet_as_needed} active Oxycodone HCl 5 MG eCW1 ([facility]) MethylPREDNISolone 4 MG MethylPREDNISolone 4 MG 05/14/2020 12:00:00 A M EST suspended MethylPREDNISolone 4 MG eCW1 ([facility]) MethylPREDNISolone 4 MG MethylPREDNISolone 4 MG 05/14/2020 12:00:00 A M EST active MethylPREDNISolone 4 MG eCW1 ([facility]) Carisoprodol 350 MG Oral Tablet [Soma] Soma 350 MG Soma 350 MG 05/14/2020 12:00:00 AM EST 1.0 {tablet_as_needed} active Soma 350 MG eCW1 ([facility]) Carisoprodol 350 MG Oral Tablet [Soma] Soma 350 MG Soma 350 MG 05/14/2020 12:00:00 AM EST 1.0 {tablet_as_needed} active Soma 350 MG eCW1 ([facility]) Oxycodone Hydrochloride 5 MG Oral Tablet Oxycodone HCl 5 MG Oxycodone HCl 5 MG 05/14/2020 12:00:00 AM EST 1.0 {tablet_as_needed} active Oxycodone HCl 5 MG eCW1 ([facility]) MethylPREDNISolone 4 MG MethylPREDNISolone 4 MG 05/14/2020 12:00:00 A M EST active MethylPREDNISolone 4 MG eCW1 ([facility]) Carisoprodol 350 MG Oral Tablet [Soma] Soma 350 MG Soma 350 MG 05/14/2020 12:00:00 AM EST 1.0 {tablet_as_needed} active Soma 350 MG eCW1 ([facility]) MethylPREDNISolone 4 MG MethylPREDNISolone 4 MG 05/14/2020 12:00:00 A M EST active MethylPREDNISolone 4 MG eCW1 ([facility]) MethylPREDNISolone 4 MG MethylPREDNISolone 4 MG 05/14/2020 12:00:00 A M EST active MethylPREDNISolone 4 MG eCW1 ([facility]) Oxycodone Hydrochloride 5 MG Oral Tablet Oxycodone HCl 5 MG Oxycodone HCl 5 MG 05/06/2020 12:00:00 AM EST 1.0 {tablet_as_needed} active Oxycodone HCl 5 MG eCW1 ([facility]) Oxycodone Hydrochloride 5 MG Oral Tablet Oxycodone HCl 5 MG Oxycodone HCl 5 MG 04/16/2020 12:00:00 AM EST 1.0 {tablet_as_needed} active Oxycodone HCl 5 MG eCW1 ([facility]) Oxycodone Hydrochloride 5 MG Oral Tablet Oxycodone HCl 5 MG Oxycodone HCl 5 MG 04/16/2020 12:00:00 AM EST 1.0 {tablet_as_needed} active Oxycodone HCl 5 MG eCW1 ([facility]) Oxycodone Hydrochloride 5 MG Oral Tablet Oxycodone HCl 5 MG Oxycodone HCl 5 MG 04/10/2020 12:00:00 AM EST 1.0 {tablet_as_needed} active Oxycodone HCl 5 MG eCW1 ([facility]) Oxycodone Hydrochloride 5 MG Oral Tablet Oxycodone HCl 5 MG Oxycodone HCl 5 MG 04/02/2020 12:00:00 AM EST 1.0 {tablet_as_needed} active Oxycodone HCl 5 MG eCW1 ([facility]) Oxycodone Hydrochloride 5 MG Oral Tablet Oxycodone HCl 5 MG Oxycodone HCl 5 MG 03/27/2020 12:00:00 AM EST 1.0 {tablet_as_needed} active Oxycodone HCl 5 MG eCW1 ([facility]) Oxycodone Hydrochloride 5 MG Oral Tablet Oxycodone HCl 5 MG Oxycodone HCl 5 MG 03/27/2020 12:00:00 AM EST 1.0 {tablet_as_needed} active Oxycodone HCl 5 MG eCW1 ([facility]) Oxycodone Hydrochloride 5 MG Oral Tablet Oxycodone HCl 5 MG Oxycodone HCl 5 MG 03/27/2020 12:00:00 AM EST 1.0 {tablet_as_needed} active Oxycodone HCl 5 MG eCW1 ([facility]) Oxycodone Hydrochloride 5 MG Oral Tablet Oxycodone HCl 5 MG Oxycodone HCl 5 MG 03/27/2020 12:00:00 AM EST 1.0 {tablet_as_needed} active Oxycodone HCl 5 MG eCW1 ([facility]) Oxycodone Hydrochloride 5 MG Oral Tablet Oxycodone HCl 5 MG Oxycodone HCl 5 MG 03/21/2020 12:00:00 AM EST 1.0 {tablet_as_needed} active Oxycodone HCl 5 MG eCW1 ([facility]) Oxycodone Hydrochloride 5 MG Oral Tablet Oxycodone HCl 5 MG Oxycodone HCl 5 MG 03/21/2020 12:00:00 AM EST 1.0 {tablet_as_needed} active Oxycodone HCl 5 MG eCW1 ([facility]) 8 HR Acetaminophen 650 MG Extended Release Oral Tablet [Tyle nol] Tylenol 8 Hour 01/18/2020 12:00:00 AM EDT active MEDENT ([facility] ) meloxicam 15 MG Oral Tablet Meloxicam 15 MG Meloxicam 15 MG 09/20/2019 12:00:00 AM EDT 1.0 {tablet} active Meloxicam 1 5 MG eCW1 ([facility]) meloxicam 15 MG Oral Tablet Meloxicam 15 MG Meloxicam 15 MG 09/20/2019 12:00:00 AM EDT 1.0 {tablet} active Meloxicam 1 5 MG eCW1 ([facility]) meloxicam 15 MG Oral Tablet Meloxicam 15 MG Meloxicam 15 MG 09/20/2019 12:00:00 AM EDT active 1 tablet eCW1 ([facility]) meloxicam 15 MG Oral Tablet Meloxicam 15 MG Meloxicam 15 MG 09/20/2019 12:00:00 AM EDT 1.0 {tablet} active Meloxicam 1 5 MG eCW1 ([facility]) Oxycodone Hydrochloride 5 MG Oral Tablet Oxycodone HCl 5 MG Oxycodone HCl 5 MG 09/08/2019 12:00:00 AM EDT 1.0 {tablet_as_needed} suspended Oxycodone HCl 5 MG eCW1 ([facility]) Oxycodone Hydrochloride 5 MG Oral Tablet Oxycodone HCl 5 MG Oxycodone HCl 5 MG 09/08/2019 12:00:00 AM EDT 1.0 {tablet_as_needed} suspended Oxycodone HCl 5 MG eCW1 ([facility]) Oxycodone Hydrochloride 5 MG Oral Tablet Oxycodone HCl 5 MG Oxycodone HCl 5 MG 09/08/2019 12:00:00 AM EDT 1.0 {tablet_as_needed} suspended Oxycodone HCl 5 MG eCW1 ([facility]) Oxycodone Hydrochloride 5 MG Oral Tablet Oxycodone HCl 5 MG Oxycodone HCl 5 MG 09/08/2019 12:00:00 AM EDT active 1 tablet as needed eCW1 ([facility]) Oxycodone Hydrochloride 5 MG Oral Tablet Oxycodone HCl 5 MG Oxycodone HCl 5 MG 09/08/2019 12:00:00 AM EDT 1.0 {tablet_as_needed} suspended Oxycodone HCl 5 MG eCW1 ([facility]) Oxycodone Hydrochloride 5 MG Oral Tablet Oxycodone HCl 5 MG Oxycodone HCl 5 MG 09/08/2019 12:00:00 AM EDT 1.0 {tablet_as_needed} active Oxycodone HCl 5 MG eCW1 ([facility]) Oxycodone Hydrochloride 5 MG Oral Tablet Oxycodone HCl 5 MG Oxycodone HCl 5 MG 09/08/2019 12:00:00 AM EDT 1.0 {tablet_as_needed} active Oxycodone HCl 5 MG eCW1 ([facility]) Oxycodone Hydrochloride 5 MG Oral Tablet Oxycodone HCl 5 MG Oxycodone HCl 5 MG 09/08/2019 12:00:00 AM EDT 1.0 {tablet_as_needed} suspended Oxycodone HCl 5 MG eCW1 ([facility]) Oxycodone Hydrochloride 5 MG Oral Tablet Oxycodone HCl 5 MG Oxycodone HCl 5 MG 09/08/2019 12:00:00 AM EDT 1.0 {tablet_as_needed} suspended Oxycodone HCl 5 MG eCW1 ([facility]) Oxycodone Hydrochloride 5 MG Oral Tablet Oxycodone HCl 5 MG Oxycodone HCl 5 MG 09/08/2019 12:00:00 AM EDT active 1 tablet as needed eCW1 ([facility]) Oxycodone Hydrochloride 5 MG Oral Tablet Oxycodone HCl 5 MG Oxycodone HCl 5 MG 09/08/2019 12:00:00 AM EDT 1.0 {tablet_as_needed} active Oxycodone HCl 5 MG eCW1 ([facility]) Oxycodone Hydrochloride 5 MG Oral Tablet Oxycodone HCl 5 MG Oxycodone HCl 5 MG 09/08/2019 12:00:00 AM EDT 1.0 {tablet_as_needed} suspended Oxycodone HCl 5 MG eCW1 ([facility]) Oxycodone Hydrochloride 5 MG Oral Tablet Oxycodone HCl 5 MG Oxycodone HCl 5 MG 09/08/2019 12:00:00 AM EDT active 1 tablet as needed eCW1 ([facility]) Oxycodone Hydrochloride 5 MG Oral Tablet Oxycodone HCl 5 MG Oxycodone HCl 5 MG 09/08/2019 12:00:00 AM EDT 1.0 {tablet_as_needed} active Oxycodone HCl 5 MG eCW1 ([facility]) Oxycodone Hydrochloride 5 MG Oral Tablet Oxycodone HCl 5 MG Oxycodone HCl 5 MG 09/08/2019 12:00:00 AM EDT 1.0 {tablet_as_needed} active Oxycodone HCl 5 MG eCW1 ([facility]) Oxycodone Hydrochloride 5 MG Oral Tablet Oxycodone HCl 5 MG Oxycodone HCl 5 MG 09/08/2019 12:00:00 AM EDT 1.0 {tablet_as_needed} suspended Oxycodone HCl 5 MG eCW1 ([facility]) Oxycodone Hydrochloride 5 MG Oral Tablet Oxycodone HCl 5 MG Oxycodone HCl 5 MG 09/08/2019 12:00:00 AM EDT 1.0 {tablet_as_needed} suspended Oxycodone HCl 5 MG eCW1 ([facility]) Oxycodone Hydrochloride 5 MG Oral Tablet Oxycodone HCl 5 MG Oxycodone HCl 5 MG 09/08/2019 12:00:00 AM EDT 1.0 {tablet_as_needed} suspended Oxycodone HCl 5 MG eCW1 ([facility]) Oxycodone Hydrochloride 5 MG Oral Tablet Oxycodone HCl 5 MG Oxycodone HCl 5 MG 09/08/2019 12:00:00 AM EDT 1.0 {tablet_as_needed} active Oxycodone HCl 5 MG eCW1 ([facility]) Oxycodone Hydrochloride 5 MG Oral Tablet Oxycodone HCl 5 MG Oxycodone HCl 5 MG 09/08/2019 12:00:00 AM EDT 1.0 {tablet_as_needed} suspended Oxycodone HCl 5 MG eCW1 ([facility]) Oxycodone Hydrochloride 5 MG Oral Tablet Oxycodone HCl 5 MG Oxycodone HCl 5 MG 09/08/2019 12:00:00 AM EDT 1.0 {tablet_as_needed} suspended Oxycodone HCl 5 MG eCW1 ([facility]) Oxycodone Hydrochloride 5 MG Oral Tablet Oxycodone HCl 5 MG Oxycodone HCl 5 MG 09/08/2019 12:00:00 AM EDT 1.0 {tablet_as_needed} suspended Oxycodone HCl 5 MG eCW1 ([facility]) Oxycodone Hydrochloride 5 MG Oral Tablet Oxycodone HCl 5 MG Oxycodone HCl 5 MG 09/08/2019 12:00:00 AM EDT 1.0 {tablet_as_needed} suspended Oxycodone HCl 5 MG eCW1 ([facility]) Oxycodone Hydrochloride 5 MG Oral Tablet Oxycodone HCl 5 MG Oxycodone HCl 5 MG 09/08/2019 12:00:00 AM EDT 1.0 {tablet_as_needed} suspended Oxycodone HCl 5 MG eCW1 ([facility]) Oxycodone Hydrochloride 5 MG Oral Tablet Oxycodone HCl 5 MG Oxycodone HCl 5 MG 09/08/2019 12:00:00 AM EDT 1.0 {tablet_as_needed} suspended Oxycodone HCl 5 MG eCW1 ([facility]) Oxycodone Hydrochloride 5 MG Oral Tablet Oxycodone HCl 5 MG Oxycodone HCl 5 MG 08/09/2019 12:00:00 AM EDT active 1 tablet as needed eCW1 ([facility]) doxycycline hyclate 100 MG Oral Capsule Doxycycline Hy clate 100 MG Doxycycline Hyclate 100 MG 07/15/2019 12:00:00 AM EST active 1 capsule eCW1 ([facility]) doxycycline hyclate 100 MG Oral Capsule Doxycycline Hy clate 100 MG Doxycycline Hyclate 100 MG 07/15/2019 12:00:00 AM EST active 1 capsule eCW1 ([facility]) Oxycodone Hydrochloride 5 MG Oral Tablet Oxycodone HCl 5 MG Oxycodone HCl 5 MG 07/07/2019 12:00:00 AM EST active 1 tablet as needed eCW1 ([facility]) Oxycodone Hydrochloride 5 MG Oral Tablet Oxycodone HCl 5 MG Oxycodone HCl 5 MG 07/07/2019 12:00:00 AM EST active 1 tablet as needed eCW1 ([facility]) Oxycodone Hydrochloride 5 MG Oral Tablet Oxycodone HCl 5 MG Oxycodone HCl 5 MG 07/07/2019 12:00:00 AM EST active 1 tablet as needed eCW1 ([facility]) Oxycodone Hydrochloride 5 MG Oral Tablet Oxycodone HCl 5 MG Oxycodone HCl 5 MG 07/07/2019 12:00:00 AM EST active 1 tablet as needed eCW1 ([facility]) Amlodipine 10 MG Oral Tablet AmLODIPine Besylate 10 MG AmLODIPine Besylate 10 MG 06/12/2019 12:00:00 AM EST 1.0 {tablet} activ e AmLODIPine Besylate 10 MG eCW1 ([facility]) Amlodipine 10 MG Oral Tablet AmLODIPine Besylate 10 MG AmLODIPine Besylate 10 MG 06/12/2019 12:00:00 AM EST 1.0 {tablet} activ e AmLODIPine Besylate 10 MG eCW1 ([facility]) Amlodipine 10 MG Oral Tablet AmLODIPine Besylate 10 MG AmLODIPine Besylate 10 MG 06/12/2019 12:00:00 AM EST 1.0 {tablet} activ e AmLODIPine Besylate 10 MG eCW1 ([facility]) Amlodipine 10 MG Oral Tablet AmLODIPine Besylate 10 MG AmLODIPine Besylate 10 MG 06/12/2019 12:00:00 AM EST active 1 tablet eCW1 ([facility]) Amlodipine 10 MG Oral Tablet AmLODIPine Besylate 10 MG AmLODIPine Besylate 10 MG 06/12/2019 12:00:00 AM EST active 1 tablet eCW1 ([facility]) Amlodipine 10 MG Oral Tablet AmLODIPine Besylate 10 MG AmLODIPine Besylate 10 MG 06/12/2019 12:00:00 AM EST active 1 tablet eCW1 ([facility]) Amlodipine 10 MG Oral Tablet AmLODIPine Besylate 10 MG AmLODIPine Besylate 10 MG 06/12/2019 12:00:00 AM EST active 1 tablet eCW1 ([facility]) Amlodipine 10 MG Oral Tablet AmLODIPine Besylate 10 MG AmLODIPine Besylate 10 MG 06/12/2019 12:00:00 AM EST active 1 tablet eCW1 ([facility]) Amlodipine 10 MG Oral Tablet AmLODIPine Besylate 10 MG AmLODIPine Besylate 10 MG 06/12/2019 12:00:00 AM EST 1.0 {tablet} activ e AmLODIPine Besylate 10 MG eCW1 ([facility]) Amlodipine 10 MG Oral Tablet AmLODIPine Besylate 10 MG AmLODIPine Besylate 10 MG 06/12/2019 12:00:00 AM EST active 1 tablet eCW1 ([facility]) Amlodipine 10 MG Oral Tablet AmLODIPine Besylate 10 MG AmLODIPine Besylate 10 MG 06/12/2019 12:00:00 AM EST active 1 tablet eCW1 ([facility]) Oxycodone Hydrochloride 5 MG Oral Tablet Oxycodone HCl 5 MG Oxycodone HCl 5 MG 06/08/2019 12:00:00 AM EST active 1 tablet as needed eCW1 ([facility]) Oxycodone Hydrochloride 5 MG Oral Tablet Oxycodone HCl 5 MG Oxycodone HCl 5 MG 06/08/2019 12:00:00 AM EST active 1 tablet as needed eCW1 ([facility]) tramadol hydrochloride 50 MG Oral Tablet Tramadol HCl 50 MG Tramadol HCl 50 MG 05/03/2019 12:00:00 AM EST active 1 to 2 tab eCW1 ([facility]) tramadol hydrochloride 50 MG Oral Tablet Tramadol HCl 50 MG Tramadol HCl 50 MG 05/03/2019 12:00:00 AM EST active 1 to 2 tab eCW1 ([facility]) Insurance Providers Payer name Policy type / Coverage type Policy ID Covered libertarian ID Covered libertarian's relationship to ho Policy Ho Plan Information [employer] [place]/ [id number] SP [id number] [employer] B [id number] S [id number] [employer] [place]/ [id number] SP [id number] [employer] P [id number] S [id number] [employer] [place] PPO 302/307 [id number] SP [id number] ANSI-Commercial [id number] ANSI-Commercial [id number] ANSI-Commercial [id number] ANSI-Commercial [id number] ANSI-Commercial 29c46635-f16j-8d35-z51f-418s9jyd875o 54n64350-u00g-6f66-h71t-681r9say667i ANSI-Commercial 76n02ky5-914d-6yx8-t7h1-btiy5n66vqmv 44m39yu8-298g-5we8-t2c5-liwn7a67hgck ANSI-Commercial 7ho74d87-vi46-14s8-w930-w35v000x3017 8nd95j21-ix40-13q2-j902-b31q713u2908 ANSI-Commercial 86ee1kma-6yk6-5i51-299s-0d9057545mm6 08hk8btg-6bs1-9b95-947v-3b4227580fa6 ANSI-Commercial 847wo84b-2f43-66a5-r544-426t61jo0871 536hh00d-7t54-13y7-m105-498h53yi3416 ANSI-Commercial 6y7w80t9-u58k-81jq-54v1-54h147703g61 2q2a97q5-w83y-77ii-64i0-76i320399j00 [employer] [place] PPO 302/307 [id number] SP [id number] ANSI-Commercial 3m25f72b-p20g-2cj3-4138-gl43q594k614 0s93u33v-r80g-4ia2-1012-ns93c481b209 ANSI-Commercial b2o3ne57-wg33-82a4-u1w9-5ic88gbe308j e4o1zg08-re82-65u0-d3x9-9nu15qmv844o [employer] [place] PPO 302/307 [id number] SP [id number] ANSI-Commercial 216z4345-s2c7-2u7u-067q-buf923prg44u 158t7005-e8m4-9f3f-859h-npr534mrp58w ANSI-Commercial 663c3179-p552-774j-3d2m-1223o65i8143 148n8361-p207-518f-2s3y-9994e60w0425 ANSI-Commercial zd87j813-k2m9-12uq-835x-i806a5th0g15 zj41o257-j5s4-12bp-638g-a381f3rc7k94 ANSI-Commercial 61uj7snz-x87l-5uu5-u2m2-986eh2ihhk59 44cc9cml-n38w-2eg7-f5d7-675ma4dnmt27 [employer] B [id number] S [id number] ANSI-Commercial 35t166x7-2a74-1790-i5z8-w52j7849r447 72c623n9-5d24-2139-h2s5-i62b1145q139 [employer] BCYO P [id number] S YNS [id number] [employer] [place] PPO 302/307 [id number] SP [id number] [employer] B [id number] S YNS [id number] [employer] [place] PPO [phone] [id number] SP [id number] EXCELLUS BC BS SIMPLY BL P [id number] S [id number] Problems, Conditions, and Diagnoses Code Display Name Description Problem Type Effective Dates Data Source(s) R20.2 [id number] Paresthesia of skin Problem 03/27/2020 12:00 :00 AM EST eCW1 ([facility]) 99126940 Cervical radiculopathy Cervical radiculopathy Problem 01/18/2020 12:00:00 AM EDT MEDENT ([facility], ) [id number] Hand pain Hand pain Problem 01/18/2020 12:00:00 AM ED T MEDENT ([facility], ) [id number] Numbness of hand Numbness of hand Problem 01/18/2020 12 :00:00 AM EDT MEDENT ([facility], ) [id number] Carpal tunnel syndrome Carpal tunnel syndrome Problem 01/18/2020 12:00:00 AM EDT MEDENT ([facility], ) M47.816 [id number] Lumbar Facet arthropathy Problem 10/26/2019 12:00:00 AM EDT eCW1 ([facility]) M79.18 [id number] Myalgia, other site Problem 07/24/2019 12:00 :00 AM EDT eCW1 ([facility]) M79.18 [id number] Myalgia, other site Problem 07/24/2019 12:00 :00 AM EDT eCW1 ([facility]) I11.9 [id number] Hypertensive heart disease without heart failure Problem 06/12/2019 12:00:00 AM EST eCW1 ([facility]) I11.9 [id number] Hypertensive heart disease without heart failure Problem 06/12/2019 12:00:00 AM EST eCW1 ([facility]) Surgeries/Procedures Procedure Description Date Indications Data Source(s) Pain Procedure Log 06/19/2020 12:00:00 AM EST eCW1 ([facility]) ARTHROCENTESIS ASPIR&/INJECTION SMALL JT/BURSA 020 12:00:00 AM EST MEDENT ([facility] ) RADEX WRIST COMPLETE MINIMUM 3 VIEWS 04/26/2020 12:00: 00 AM EST MEDENT ([facility] ) RADEX WRIST COMPLETE MINIMUM 3 VIEWS 04/26/2020 12:00: 00 AM EST MEDENT ([facility] ) RADEX ELBOW COMPLETE MINIMUM 3 VIEWS 02/12/2020 12:00: 00 AM EDT MEDENT ([facility] ) Needle electromyography, each extremity, with related paraspinal areas, when performed, done with nerve conduction, amplitude and latency/velocity study; complete, five or more muscles studied, innervated by three or more nerves or four or more spinal levels (list separately in addition to the code for primary procedure). 01/18/2020 12:00:00 AM EDT MEDEN T ([facility], ) Needle Electromyography Non Extremity Done With Nerve Conduc tion 01/18/2020 12:00:00 AM EDT MEDENT ([facility], ) Nerve Conduction 9-10 Studies 01/18/2020 12:00:00 AM E DT MEDENT ([facility], ) ESTABILISHED PATIENT [facility] CHAR[facility] 020 12:00:00 AM EDT eCW1 ([facility]) PHYSICIAN TELEPHONE EVALUATION 11-20 MIN 08/16/2019 12 :00:00 AM EDT eCW1 ([facility]) INJ TRIGGER POINT 1/2 MUSCL 07/21/2019 12:00:00 AM EST eCW1 ([facility]) STREP A ASSAY W/OPTIC 07/15/2019 12:00:00 AM EST eCW1 ([facility]) Influenza A+B 07/15/2019 12:00:00 AM EST eCW1 ([facility]) Results ID Date Data Source [id number] 05/31/2020 10:00:00 AM EST [facility] Name Value Range Interpretation Code Description Data Monica rce(s) Supporting Document(s) SARS coronavirus 2 RNA Not Detected [facility] [place] This lab was ordered by [facility] and reported by [facility]. ID Date Data Source [id number] 01/19/2020 10:00:00 AM EDT [facility] Name Value Range Interpretation Code Description Data Monica rce(s) Supporting Document(s) SARS coronavirus 2 RNA [facility] This lab was ordered by [facility] and reported by [facility]. ID Date Data Source [id number] 11/20/2019 10:10:00 AM EDT [facility] Name Value Range Interpretation Code Description Data Monica rce(s) Supporting Document(s) SARS coronavirus 2 RNA [facility] This lab was ordered by [facility] and reported by [facility]. ID Date Data Source [id number] 10/07/2019 08:00:00 AM EDT [facility] Name Value Range Interpretation Code Description Data Monica rce(s) Supporting Document(s) SARS CORONAVIRUS 2 RNA [facility] This lab was ordered by [facility] and reported by [facility]. ID Date Data Source GATS (NEGATIVE STREP SCREEN) 07/15/2019 12:00:00 AM EST eCW1 ([facility]) Name Value Range Interpretation Code Description Data Monica rce(s) Supporting Document(s) FULL REPORT IN LAB NOTES (eCW and [facility]). GATS CULTURE (NEG STREP SCR) eCW1 ([facility]) Procedure Social History Code Duration Value Status Description Data Source(s ) Smoking 06/19/2020 12:00:00 AM EST Former Smoker completed Former Smoker eCW1 ([facility]) Smoking 06/05/2020 12:00:00 AM EST Former Smoker completed Former Smoker eCW1 ([facility]) Smoking 06/05/2020 12:00:00 AM EST Former Smoker completed Former Smoker eCW1 ([facility]) Smoking 06/05/2020 12:00:00 AM EST Former Smoker completed Former Smoker eCW1 ([facility]) Smoking 05/14/2020 12:00:00 AM EST Former Smoker completed Former Smoker eCW1 ([facility]) Smoking 05/14/2020 12:00:00 AM EST Former Smoker completed Former Smoker eCW1 ([facility]) Smoking 03/21/2020 12:00:00 AM EST Former Smoker completed Former Smoker eCW1 ([facility]) Smoking 03/21/2020 12:00:00 AM EST Former Smoker completed Former Smoker eCW1 ([facility]) Smoking 03/21/2020 12:00:00 AM EST Former Smoker completed Former Smoker eCW1 ([facility]) Smoking 03/21/2020 12:00:00 AM EST Former Smoker completed Former Smoker eCW1 ([facility]) Smoking 03/21/2020 12:00:00 AM EST Former Smoker completed Former Smoker eCW1 ([facility]) Smoking 03/21/2020 12:00:00 AM EST Former Smoker completed Former Smoker eCW1 ([facility]) Smoking 03/21/2020 12:00:00 AM EST Former Smoker completed Former Smoker eCW1 ([facility]) Smoking 03/21/2020 12:00:00 AM EST Former Smoker completed Former Smoker eCW1 ([facility]) Smoking 03/21/2020 12:00:00 AM EST Former Smoker completed Former Smoker eCW1 ([facility]) Smoking 03/21/2020 12:00:00 AM EST Former Smoker completed Former Smoker eCW1 ([facility]) Smoking 03/21/2020 12:00:00 AM EST Former Smoker completed Former Smoker eCW1 ([facility]) Smoking 11/24/2019 12:00:00 AM EDT Former Smoker completed Former Smoker eCW1 ([facility]) Smoking 11/24/2019 12:00:00 AM EDT Former Smoker completed Former Smoker eCW1 ([facility]) Smoking 10/26/2019 12:00:00 AM EDT Former Smoker completed Former Smoker eCW1 ([facility]) Smoking 10/26/2019 12:00:00 AM EDT Former Smoker completed Former Smoker eCW1 ([facility]) Smoking 10/26/2019 12:00:00 AM EDT Former Smoker completed Former Smoker eCW1 ([facility]) Vital Signs ID Date Data Source UNK Name Value Range Interpretation Code Description Data Source(s) Diastolic blood pressure 97 mm[Hg] 97 mm[Hg] eCW1 ([facility]) Systolic blood pressure 135 mm[Hg] 135 mm[Hg] e CW1 ([facility]) Body temperature 98.0 [degF] 98.0 [degF] eCW1 ( [facility]) Respiratory rate 18 /min 18 /min eCW1 ([facility]) Heart rate 72 /min 72 /min eCW1 ([facility]) Body mass index (BMI) [Ratio] 25.71 kg/m2 25.71 kg/m2 eCW1 ([facility]) Body height [in_i] eCW1 ([facility]) Body weight 164.2 [lb_av] 164.2 [lb_av] eCW1 ([facility]) Diastolic blood pressure 80 mm[Hg] 80 mm[Hg] eCW1 ([facility]) Systolic blood pressure 114 mm[Hg] 114 mm[Hg] e CW1 ([facility]) Body temperature 98.1 [degF] 98.1 [degF] eCW1 ( [facility]) Respiratory rate 18 /min 18 /min eCW1 ([facility]) Heart rate 73 /min 73 /min eCW1 ([facility]) Body mass index (BMI) [Ratio] 25.24 kg/m2 25.24 kg/m2 eCW1 ([facility]) Body height [in_i] eCW1 ([facility]) Body weight 161.2 [lb_av] 161.2 [lb_av] eCW1 ([facility]) Diastolic blood pressure 94 mm[Hg] 94 mm[Hg] eCW1 ([facility]) Systolic blood pressure 152 mm[Hg] 152 mm[Hg] e CW1 ([facility]) Body temperature 98.4 [degF] 98.4 [degF] eCW1 ( [facility]) Respiratory rate 18 /min 18 /min eCW1 ([facility]) Heart rate 80 /min 80 /min eCW1 ([facility]) Body mass index (BMI) [Ratio] 25.40 kg/m2 25.40 kg/m2 W1 ([facility]) Body height [in_i] eCW1 ([facility]) Body weight 162.2 [lb_av] 162.2 [lb_av] eCW1 ([facility]) Body mass index (BMI) [Ratio] 25.1 kg/m2 25.1 k g/m2 MEDENT ([facility] ) Body weight 155.25 [lb_av] 155.25 [lb_av] MEDEN T ([facility] ) Body height 66 [in_i] 66 [in_i] MEDENT ([facility] ) 5'6" Body temperature 97.7 [degF] 97.7 [degF] MEDENT ([facility] ) Diastolic blood pressure 70 mm[Hg] 70 mm[Hg] eCW1 ([facility]) Systolic blood pressure 170 mm[Hg] 170 mm[Hg] e CW1 ([facility]) Body temperature 98.9 [degF] 98.9 [degF] eCW1 ( [facility]) Respiratory rate 18 /min 18 /min eCW1 ([facility]) Heart rate 80 /min 80 /min eCW1 ([facility]) Body mass index (BMI) [Ratio] 24.56 kg/m2 24.56 kg/m2 eCW1 ([facility]) Body height [in_i] eCW1 ([facility]) Body weight 156.8 [lb_av] 156.8 [lb_av] eCW1 ([facility]) Body weight 70.308 kg 70.308 kg MEDENT ([facility], ) Body mass index (BMI) [Ratio] 24.3 kg/m2 24.3 k g/m2 MEDENT ([facility], ) Body weight 155.00 [lb_av] 155.00 [lb_av] MEDEN T ([facility], ) Body height 67 [in_i] 67 [in_i] MEDENT ([facility], ) 5'7" Body temperature 97.6 [degF] 97.6 [degF] MEDENT ([facility], ) Body mass index (BMI) [Ratio] 22.7 kg/m2 22.7 k g/m2 MEDENT ([facility], ) Body weight 145.00 [lb_av] 145.00 [lb_av] MEDEN T ([facility], ) Body height 67 [in_i] 67 [in_i] MEDENT ([facility], ) 5'7" Heart rate 72 /min 72 /min MEDENT ([facility], ) Diastolic blood pressure 80 mm[Hg] 80 mm[Hg] MEDENT ([facility], ) Systolic blood pressure 120 mm[Hg] 120 mm[Hg] M EDENT ([facility], ) Diastolic blood pressure 93 mm[Hg] 93 mm[Hg] eCW1 ([facility]) Systolic blood pressure 138 mm[Hg] 138 mm[Hg] e CW1 ([facility]) Body temperature 97.2 [degF] 97.2 [degF] eCW1 ( [facility]) Respiratory rate 16 /min 16 /min eCW1 ([facility]) Heart rate 71 /min 71 /min eCW1 ([facility]) Body mass index (BMI) [Ratio] 22.83 kg/m2 22.83 kg/m2 W1 ([facility]) Body height [in_i] eCW1 ([facility]) Body weight 145.8 [lb_av] 145.8 [lb_av] eCW1 ([facility]) Diastolic blood pressure 83 mm[Hg] 83 mm[Hg] eCW1 ([facility]) Systolic blood pressure 136 mm[Hg] 136 mm[Hg] e CW1 ([facility]) Body temperature 98.6 [degF] 98.6 [degF] eCW1 ( [facility]) Respiratory rate 16 /min 16 /min eCW1 ([facility]) Heart rate 84 /min 84 /min eCW1 ([facility]) Body mass index (BMI) [Ratio] 23.11 kg/m2 23.11 kg/m2 W1 ([facility]) Body height [in_i] eCW1 ([facility]) Body weight 147.6 [lb_av] 147.6 [lb_av] eCW1 ([facility]) Diastolic blood pressure 77 mm[Hg] 77 mm[Hg] eCW1 ([facility]) Systolic blood pressure 116 mm[Hg] 116 mm[Hg] e CW1 ([facility]) Body temperature 99 [degF] 99 [degF] eCW1 ([facility]) Respiratory rate 18 /min 18 /min eCW1 ([facility]) Heart rate 72 /min 72 /min eCW1 ([facility]) Body mass index (BMI) [Ratio] 22.71 kg/m2 22.71 kg/m2 eCW1 ([facility]) Body height [in_us] eCW1 ([facility]) Body weight Measured 145 [lb_av] 145 [lb_av] eC W1 ([facility]) Diastolic blood pressure 94 mm[Hg] 94 mm[Hg] eCW1 ([facility]) Systolic blood pressure 145 mm[Hg] 145 mm[Hg] e CW1 ([facility]) Body temperature 98.1 [degF] 98.1 [degF] eCW1 ( [facility]) Respiratory rate 18 /min 18 /min eCW1 ([facility]) Heart rate 81 /min 81 /min eCW1 ([facility]) Body mass index (BMI) [Ratio] 22.52 kg/m2 22.52 kg/m2 W1 ([facility]) Body height [in_us] eCW1 ([facility]) Body weight Measured 143.8 [lb_av] 143.8 [lb_av ] eCW1 ([facility]) Diastolic blood pressure 85 mm[Hg] 85 mm[Hg] eCW1 ([facility]) Systolic blood pressure 119 mm[Hg] 119 mm[Hg] e CW1 ([facility]) Body temperature 97.1 [degF] 97.1 [degF] eCW1 ( [facility]) Respiratory rate 18 /min 18 /min eCW1 ([facility]) Heart rate 92 /min 92 /min eCW1 ([facility]) Body mass index (BMI) [Ratio] 23.21 kg/m2 23.21 kg/m2 eCW1 ([facility]) Body height [in_us] eCW1 ([facility]) Body weight Measured 148.2 [lb_av] 148.2 [lb_av ] eCW1 ([facility]) Body weight Measured 152.8 [lb_av] 152.8 [lb_av ] eCW1 ([facility]) Diastolic blood pressure 86 mm[Hg] 86 mm[Hg] eCW1 ([facility]) Systolic blood pressure 140 mm[Hg] 140 mm[Hg] e CW1 ([facility]) Body temperature 98 [degF] 98 [degF] eCW1 ([facility]) Respiratory rate 18 /min 18 /min eCW1 ([facility]) Heart rate 84 /min 84 /min eCW1 ([facility]) Body mass index (BMI) [Ratio] 23.93 kg/m2 23.93 kg/m2 eCW1 ([facility]) Body height [in_us] eCW1 ([facility]) Diastolic blood pressure 83 mm[Hg] 83 mm[Hg] eCW1 ([facility]) Systolic blood pressure 124 mm[Hg] 124 mm[Hg] e CW1 ([facility]) Body temperature 99.3 [degF] 99.3 [degF] eCW1 ( [facility]) Respiratory rate 18 /min 18 /min eCW1 ([facility]) Heart rate 92 /min 92 /min eCW1 ([facility]) Body mass index (BMI) [Ratio] 23.80 kg/m2 23.80 kg/m2 eCW1 ([facility]) Body height [in_us] eCW1 ([facility]) Body weight Measured 152 [lb_av] 152 [lb_av] eC W1 ([facility]) Diastolic blood pressure 72 mm[Hg] 72 mm[Hg] eCW1 ([facility]) Systolic blood pressure 146 mm[Hg] 146 mm[Hg] e CW1 ([facility]) Body temperature 99.0 [degF] 99.0 [degF] eCW1 ( [facility]) Respiratory rate 18 /min 18 /min eCW1 ([facility]) Heart rate 87 /min 87 /min eCW1 ([facility]) Body mass index (BMI) [Ratio] 23.45 kg/m2 23.45 kg/m2 eCW1 ([facility]) Body height [in_us] eCW1 ([facility]) Body weight Measured [lb_av] eCW1 ([facility]) Diastolic blood pressure 82 mm[Hg] 82 mm[Hg] eCW1 ([facility]) Systolic blood pressure 140 mm[Hg] 140 mm[Hg] e CW1 ([facility]) Body temperature 97.6 [degF] 97.6 [degF] eCW1 ( [facility]) Respiratory rate 18 /min 18 /min eCW1 ([facility]) Heart rate 70 /min 70 /min eCW1 ([facility]) Body mass index (BMI) [Ratio] 23.18 kg/m2 23.18 kg/m2 eCW1 ([facility]) Body height [in_us] eCW1 ([facility]) Body weight Measured 148 [lb_av] 148 [lb_av] eC W1 ([facility]) Diastolic blood pressure 85 mm[Hg] 85 mm[Hg] eCW1 ([facility]) Systolic blood pressure 155 mm[Hg] 155 mm[Hg] e CW1 ([facility]) Body temperature 98.3 [degF] 98.3 [degF] eCW1 ( [facility]) Respiratory rate 18 /min 18 /min eCW1 ([facility]) Heart rate 68 /min 68 /min eCW1 ([facility]) Body mass index (BMI) [Ratio] 23.30 kg/m2 23.30 kg/m2 eCW1 ([facility]) Body height [in_us] eCW1 ([facility]) Body weight Measured 148.8 [lb_av] 148.8 [lb_av ] eCW1 ([facility]) Patient Treatment Plan of Care Planned Activity Planned Date Details Description Data Source (s) Oxycodone Hydrochloride 5 MG Oral Tablet 06/11/2020 12:00:00 AM EST eCW1 ([facility]) Oxycodone Hydrochloride 5 MG Oral Tablet 06/11/2020 12:00:00 AM EST eCW1 ([facility]) Carisoprodol 350 MG Oral Tablet [Soma] 05/14/2020 12:00:00 AM EST eCW1 ([facility]) Oxycodone Hydrochloride 5 MG Oral Tablet 05/14/2020 12:00:00 AM EST eCW1 ([facility]) MethylPREDNISolone 4 MG 05/14/2020 12:00:00 AM EST eCW1 ([facility]) Carisoprodol 350 MG Oral Tablet [Soma] 05/14/2020 12:00:00 AM EST eCW1 ([facility]) Oxycodone Hydrochloride 5 MG Oral Tablet 05/14/2020 12:00:00 AM EST eCW1 ([facility]) MethylPREDNISolone 4 MG 05/14/2020 12:00:00 AM EST eCW1 ([facility]) Oxycodone Hydrochloride 5 MG Oral Tablet 05/06/2020 12:00:00 AM EST eCW1 ([facility]) Oxycodone Hydrochloride 5 MG Oral Tablet 04/16/2020 12:00:00 AM EST eCW1 ([facility]) Oxycodone Hydrochloride 5 MG Oral Tablet 04/16/2020 12:00:00 AM EST eCW1 ([facility]) Oxycodone Hydrochloride 5 MG Oral Tablet 04/10/2020 12:00:00 AM EST eCW1 ([facility]) Oxycodone Hydrochloride 5 MG Oral Tablet 04/02/2020 12:00:00 AM EST eCW1 ([facility]) Oxycodone Hydrochloride 5 MG Oral Tablet 03/27/2020 12:00:00 AM EST eCW1 ([facility]) Oxycodone Hydrochloride 5 MG Oral Tablet 03/27/2020 12:00:00 AM EST eCW1 ([facility]) Oxycodone Hydrochloride 5 MG Oral Tablet 03/27/2020 12:00:00 AM EST eCW1 ([facility]) Oxycodone Hydrochloride 5 MG Oral Tablet 03/27/2020 12:00:00 AM EST eCW1 ([facility]) Oxycodone Hydrochloride 5 MG Oral Tablet 03/21/2020 12:00:00 AM EST eCW1 ([facility]) Oxycodone Hydrochloride 5 MG Oral Tablet 03/21/2020 12:00:00 AM EST eCW1 ([facility]) meloxicam 15 MG Oral Tablet 09/20/2019 12:00:00 AM EDT eCW1 ([facility]) Oxycodone Hydrochloride 5 MG Oral Tablet 09/08/2019 12:00:00 AM EDT eCW1 ([facility]) Oxycodone Hydrochloride 5 MG Oral Tablet 09/08/2019 12:00:00 AM EDT eCW1 ([facility]) Oxycodone Hydrochloride 5 MG Oral Tablet 08/09/2019 12:00:00 AM EDT eCW1 ([facility]) doxycycline hyclate 100 MG Oral Capsule 07/15/2019 12:00:00 AM EST eCW1 ([facility]) Oxycodone Hydrochloride 5 MG Oral Tablet 07/07/2019 12:00:00 AM EST eCW1 ([facility]) Amlodipine 10 MG Oral Tablet 06/12/2019 12:00:00 AM EST eCW1 ([facility]) Oxycodone Hydrochloride 5 MG Oral Tablet 06/08/2019 12:00:00 AM EST eCW1 ([facility]) tramadol hydrochloride 50 MG Oral Tablet 05/03/2019 12:00:00 AM EST eCW1 ([facility]) tramadol hydrochloride 50 MG Oral Tablet 05/03/2019 12:00:00 AM EST eCW1 ([facility])
== END 2020-07-01 15:13 | disposition home or self-care (01) ==
LOC: M ED 12:32
DX: S76.012A Strain of muscle, fascia and tendon of left hip, initial encounter (principal); S73.102A Unspecified sprain of left hip, initial encounter; X58.XXXA Exposure to other specified factors, initial encounter; Y92.89 Other specified places as the place of occurrence of the external cause; I10 Essential (primary) hypertension; Z79.899 Other long term (current) drug therapy

== ENCOUNTER → 2020-07-29 | Outpatient (CLI) | payer BC ==
--- NOTE | 2020-07-30 23:20 | ECWPNPC ---
PATIENT NAME: MAXIME MCKEON : 1970 GENDER: MALE VISIT DATE: 07/29/2020 DISCHARGE DATE: 07/29/20 1501 VISIT LOCKED DATE TIME: PHYSICIAN: FREDERICK SCHWARTZ PHYSICIAN PAGER NO: ACTIVE RESOURCE: FREDERICK SCHWARTZ REASON FOR APPOINTMENT 1. INCREASED PAIN HISTORY OF PRESENT ILLNESS DEPRESSION SCREENING: PHQ-2 (2015 EDITION) LITTLE INTEREST OR PLEASURE IN DOING THINGS?NOT AT ALL FEELING DOWN, DEPRESSED, OR HOPELESS?NOT AT ALL TOTAL SCORE0 GENERAL: HERE FOR EVALUATION OF CHRONIC THORACIC BACK PAIN. PAIN IN THIS REGION HAS BEEN THERE FOR A LONG TIME. DENIES SPECIFIC PRECIPITATING EVENT. PAIN IS AGGRAVATED BY BENDING. CONTINUES TO DO WELL WITH LOW BACK PAIN AFTER LUMBAR EPIDURAL STEROID INJECTION SEVERAL MONTHS AGO. DENIES RECENT ILLNESS OR WEIGHT LOSS. -. FALL RISK SCREENING: SCREENING : NO FALLS REPORTED IN THE LAST YEAR. PAIN SCREENING: PATIENT HAS A COMPLAINT OF ACUTE OR CHRONIC PAIN :YES LOCATION OF PAIN:MID BACK INTENSITY OF PAIN (SCALE OF 1 TO 10):4 WHAT DOES YOUR PAIN FEEL LIKE:ACHING, CONTINOUS DURATION:CONTINOUS, CONSTANT, ALL DAY PAIN IS INCREASED BY:ACTIVITIES PAIN IS DECREASED BY:USE OF PAIN MEDICATIONS, OTHERS HEATING PAD NURSING NOTE: -. PAIN CENTER INTAKE QUESTIONS: DO YOU HAVE A HISTORY OF MRSA? :NO DO YOU TAKE A BLOOD THINNERS? :NO DO YOU HAVE ANY BLEEDING DISORDERS? :NO ANY NEW NUMBNESS OR WEAKNESS IN YOUR LEGS OR ARMS? :NO ANY PACEMAKER,DEFIBRILLATOR, OR DORSAL COLUMN STIMULATOR? :NO DO YOU HAVE ANY RASHES OR OPEN SORES? :NO ARE YOU ALLERGIC TO IV DYE? :NO ARE YOU DIABETIC? :NO ANY NEW PROBLEMS WITH YOUR MEDICATIONS? :NO HAVE YOU RECEIVED A VACCINE IN THE PAST 30 DAYS? :NO DO YOU PLAN TO RECEIVE A VACCINE IN THE NEXT 21 DAYS? :YES IF SO WHAT VACCINE AND WHEN? WOULD LIKE TO CONSIDER THE COVID VACCINATION IF IT BECOMES AVAILABLE. DO YOU NEED ANY PRESCRIPTION? :NO DO YOU TAKE ANY IMMUNOSUPPRESSIVE MEDICATIONS? :NO IS THERE A CHANCE YOU COULD BE ? :NO ARE YOU BREAST FEEDING? :NO CURRENT MEDICATIONS TAKING EXCEDRIN MIGRAINE 250-250-65 MG TABLET 2 TABLETS ORALLY ONCE DAILY NEEDED TAKING VIAGRA 100 MG TABLET 1 TABLET NEEDED ORALLY ONCE A DAY TAKING GABAPENTIN 600 MG TABLET 1 TABLET ORALLY TID TAKING AMLODIPINE BESYLATE 10 MG TABLET TAKE 1 TABLET BY MOUTH ONCE DAILY TAKING OXYCODONE HCL 5 MG TABLET 1 TABLET NEEDED ORALLY Q8H PRN MDD3 #30 TAB SHOULD LAST 30 DAYS NOT-TAKING METHYLPREDNISOLONE 4 MG TABLET THERAPY PACK DIRECTED ORALLY DIRECTED, NOTES: COMPLETED LAST WEEK NOT-TAKING SOMA 350 MG TABLET 1 TABLET NEEDED ORALLY Q8H MDD3, NOTES: 06/04 1999 NOT-TAKING OXYCODONE HCL 5 MG TABLET 1 TABLET NEEDED ORALLY Q8H PRN FOR SEVERE PAIN EPISODES #45 TAB SHOULD LAST 30 DAYS MEDICATION LIST REVIEWED AND RECONCILED WITH THE PATIENT PAST MEDICAL HISTORY COPD HTN 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 SURGICAL HISTORY UPPER LEFT LOBECTOMY 2010 COLLAPSED LUNG LEFT SIDE 2008 ALL TEETH EXTRACTED 2015 SOCIAL HISTORY GENERAL: TOBACCO USE ARE YOU A:FORMER SMOKER QUIT IN 2008 HOW LONG HAS IT BEEN SINCE YOU LAST SMOKED?> 10 YEARS VAPORNO E-CIGARETTENO LATEX QUESTIONNAIRE LATEX ALLERGY : HAVE YOU EVER DEVELOPED ANY TYPE OF REACTION AFTER HANDLING LATEX PRODUCTS SUCH RUBBER GLOVES, CONDOMS, DIAPHRAGMS, BALLOONS, SOCKS, OR UNDERWEAR?NO LATEX ALLERGY : HAVE YOU EVER DEVELOPED ANY TYPE OF REACTION DURING OR AFTER DENTAL APPOINTMENT, VAGINAL/RECTAL EXAMINATION, SURGICAL PROCEDURE, OR ANY OTHER EXPOSURE?NO LATEX RISK : HAVE YOU EVER HAD ANY DIFFICULTY BREATHING OR HIVES AFTER EATING OR HANDLING ANY FRUITS, OR VEGETABLES; SUCH KIWI, BANANAS, STONE FRUITS, OR CHESTNUTSNO LATEX RISK : DO YOU HAVE A PREVIOUS PERSONAL HISTORY OF MORE THAN NINE SURGERIES, SPINA BIFIDA, OR REPEATED CATHERIZATIONS? NO LATEX RISK : ARE YOU FREQUENTLY EXPOSED TO LATEX PRODUCTS IN YOUR OCCUPATION?NO DATE ASKED : 07/29/2020 ALCOHOL USE: OCCASIONAL, YES. ALCOHOL SCREENING DID YOU HAVE A DRINK CONTAINING ALCOHOL IN THE PAST YEAR?YES HOW OFTEN DID YOU HAVE SIX OR MORE DRINKS ON ONE OCCASION IN THE PAST YEAR?NEVER (0 POINTS) HOW MANY DRINKS DID YOU HAVE ON A TYPICAL DAY WHEN YOU WERE DRINKING IN THE PAST YEAR?1 OR 2 (0 POINTS) HOW OFTEN DID YOU HAVE A DRINK CONTAINING ALCOHOL IN THE PAST YEAR?TWO TO THREE TIMES PER WEEK (3 POINTS) POINTS3 INTERPRETATIONNEGATIVE RECREATIONAL DRUG USE DRUG USE?NO CAFFEINE CAFFEINE USE?YES HOW OFTEN AND HOW MUCH? -1 1/2 CUPS COFFEE IN AM SEXUAL HX HAD SEX IN THE LAST 12 MONTHS (VAGINAL, ORAL, OR ANAL)?YES WITHWOMEN ONLY PREVENTION STRATEGIES DISCUSSED:OTHER USE PROTECTION?NO HAVE YOU EVER HAD AN STD?NO HIV / HEP-C SCREENING HIV TEST OFFERED TO PATIENT:YES DATE OFFERED:07/21/2018 TEST ACCEPTED:NO HEP-C TEST OFFERED TO PATIENT:YES DATE OFFERED:07/21/2018 REASON:PATIENT DECLINED -BLOOD DONOR-ALREADY TESTED TEST ACCEPTED:NO REASON:PATIENT DECLINED -BLOOD DONOR-ALREADY TESTED BROCHURE PROVIDED TO PATIENTNO EPISCOPALIAN [id number] [employer] LANGUAGES SPOKEN:[place] EDUCATION LEVEL OF EDUCATION:FINISHED HIGH SCHOOL LEARNING BARRIERS / SPECIAL NEEDS CHANGE FROM LAST VISIT?NO BARRIERS TO LEARNING?NO HEARING IMPAIRED?NO VISION IMPAIRED?YES :CORRECTIVE LENSES -READERS COGNITIVELY IMPAIRED?NO READINESS TO LEARN?YES LEARNING PREFERENCES?NO LEARNING CAPABILITIES PRESENT?YES EMOTIONAL BARRIERS?NO SPECIAL DEVICES?NO TABLEAU ADMINISTRATOR NEEDED?NO DOMESTIC VIOLENCE DO YOU FEEL SAFE IN YOUR ENVIRONMENT?YES OCCUPATION: [employer]. DIET: REGULAR. EXERCISE: NO REGULAR EXERCISE. MARITAL STATUS: .. OTHERS AT HOME: FATHER, MOTHER, CHILD, OTHER NON-RELATIVE. - HAS THE PATIENT BEEN EDUCATED REGARDING HIS/HER PLAN OF CARE?YES HAS THE PATIENT BEEN EDUCATED REGARDING PAIN, THE RISK FOR PAIN, THE IMPORTANCE OF EFFECTIVE PAIN MANAGEMENT, AND THE PAIN ASSESSMENT PROCESS?YES ADVANCE DIRECTIVE ADVANCE DIRECTIVE DISCUSSED WITH PATIENT:YES PT WAS GIVEN INFORMATION ON HCP LAST VISIT AND HE WILL BRING IT IN AND HAVE US WITNESS IT. HOSPITALIZATION/MAJOR DIAGNOSTIC PROCEDURE W/SURGERY SPINAL MENINGITIS AGE 22 REVIEW OF SYSTEMS CONSTITUTIONAL: ANY RECENT FEVER NO . CHILLS NO . WEIGHT CHANGE OF UNKNOWN REASONS NO . GASTROENTEROLOGY: NEW UNEXPLAINABLE CHANGES IN BOWEL CONTROL NO . CONSTIPATION NO . GENITOURINARY: ANY NEW CHANGE IN BLADDER CONTROL? NO . NEUROLOGY: NEW ONSET DIZZINESS OR NEUROLOGICAL CHANGES NOT MENTIONED NO . NEW NUMBNESS OR PAIN PATTERNS NOT MENTIONED AND PERTINENT TO TODAY'S VISIT NO . CARDIOLOGY: NEW CHEST PRESSURE NO . PATIENT DENIES NO . RESPIRATORY: UNEXPLAINABLE COUGH NO . NEW SHORTNESS OF BREATH NO . VITAL SIGNS WT 161.8 LBS, HT 5'7", BMI 25.34 INDEX, BP 128/87 MM HG, HR 85 /MIN, RR 18 /MIN, TEMP 99.2 F, OXYGEN SAT % 92%, SAFE IN ENV? (Y/N) YES, NA INITIALS FL 14:22T.KOKO VELIZ. EXAMINATION GENERAL EXAMINATION: GENERALNO ACUTE DISTRESS, WELL NOURISHED AND HYDRATED. PSYCHAPPROPRIATE MOOD AND AFFECT . LUNGS:CLEAR TO AUSCULTATION BILATERALLY, NO WHEEZES, RHONCHI, RALES. HEART:NO MURMURS, REGULAR RATE AND RHYTHM. THORACIC SPINE:TRIGGER POINTS NOTED BILATERAL MID THORACIC PARASPINALS LEFT GREATER THAN RIGHT . ASSESSMENTS OTHER CHRONIC PAIN - G89.29 (PRIMARY) PAIN IN THORACIC SPINE - M54.6 TREATMENT OTHER CHRONIC PAIN [facility] MRI SPINE,THORACIC WITHOUT [id number] NOTES: PATIENT HAS FAILED CONSERVATIVE TREATMENT FOR THORACIC BACK PAIN TO INCLUDE NONSTEROIDAL MEDICATIONS AND NARCOTIC PAIN MEDICATIONS. PHYSICAL THERAPY THAT HAS BEEN TRIED IN THE PAST AGGREVATES PAIN. RECOMMEND MRI OF THE THORACIC SPINE TO EVALUATE FOR PATHOLOGY TO ESTABLISH INTERVENTIONAL TREATMENT PLAN. PROCEDURE CODES FA211 ESTABILISHED PATIENT [facility] FACILITY CHARGE DISPOSITION & COMMUNICATION FOLLOW UP 6 WEEKS (REASON: REVIEW THORACIC MRI) ELECTRONICALLY SIGNED BY ZEHRA VALENCIA ON 07/30/2020 AT 11:38 AM EDT DISCLAIMER : THIS IS A VISIT SUMMARY EXTRACTED FROM THE [employer] CHART. IT IS NOT A COPY OF THE [employer] PROGRESS NOTE. DAVID
== END ==
LOC: M PAIN 14:45
PROVIDERS: ATTEND Nurse Practitioner Family
DX: G89.29 Other chronic pain (principal); M54.6 Pain in thoracic spine; J44.9 Chronic obstructive pulmonary disease, unspecified; I10 Essential (primary) hypertension; Z87.891 Personal history of nicotine dependence; Z79.891 Long term (current) use of opiate analgesic; Z79.899 Other long term (current) drug therapy

== ENCOUNTER → 2020-09-16 | Outpatient (CLI) | payer BC ==
--- NOTE | 2020-09-17 09:18 | REP ---
INDICATION: THORACIC SPINE PAIN. Chronic pain. COMPARISON: Comparison lumbar spine imaging October 04, 2019.. TECHNIQUE: Sagittal and axial T1 and T2-weighted scans are acquired in the usual fashion with and without fat saturation. Sequences include spin echo, turbo spin-echo, and STIR imaging sequences. FINDINGS: Thoracic vertebral body heights are preserved. Alignment is normal. Cortical and medullary bone signal intensity are normal. No fracture or collapse is seen. There is a Schmorl's node in the superior endplate of the T6 vertebral body and Schmorl's nodes are visible at T11 and T12. Degenerative disc changes are noted at C7-T1 with central disc bulging. There are reactive marrow edema changes on either side of the C7-T1 disc space visible on STIR images. No extra vertebral abnormality is appreciated. Degenerative disc changes consisting of disc space narrowing are seen at T6-7 T7-8, T8-9, and T11-12. There is posterior disc bulging at multiple levels including T3-4 through T11-12. No disc protrusion contacting the cord is seen. At T9-10 there is a right-sided focal disc protrusion which effaces the right ventral subarachnoid space but does not deform or displace the cord. At the T10-T11 there is some bilateral disc bulging and ligamentum flavum and facet hypertrophy which narrows the thecal sac and produce mild central canal stenosis. The thecal sac measures 10 mm in AP dimension in the midline at the T10-11 level. No overt cord compression is seen. Tip of the conus appears to be at T12-L1. IMPRESSION: Degenerative spondylosis changes with multilevel degenerative disc disease and disc bulging. Borderline canal size at the T10-T11. No overt cord compression or neural foraminal lesion seen. <Electronically signed by Gualberto Jimenes > 09/17/20 0965
== END ==
LOC: M RAD 17:35
PROVIDERS: ATTEND Nurse Practitioner Family
DX: G89.29 Other chronic pain (principal); M47.814 Spondylosis without myelopathy or radiculopathy, thoracic region

== ENCOUNTER → 2020-09-25 | Outpatient (CLI) | payer BC ==
[~2020-09-25] MED LIST changes: +GABA-283; -GABA-845
--- NOTE | 2020-09-28 03:30 | ECWPNPC ---
PATIENT NAME: MAXIME MCKEON : 1970 GENDER: MALE VISIT DATE: 09/25/2020 DISCHARGE DATE: 09/25/20 1504 VISIT LOCKED DATE TIME: PHYSICIAN: FREDERICK SCHWARTZ PHYSICIAN PAGER NO: ACTIVE RESOURCE: FREDERICK SCHWARTZ REASON FOR APPOINTMENT 1. LOW BACK/MED MGMNT HISTORY OF PRESENT ILLNESS GENERAL: 50-YEAR-OLD GENTLEMAN BEING SEEN FOR FOLLOW-UP AND EVALUATION OF PERSISTENT THORACIC BACK PAIN. THORACIC MRI IS REVIEWED WITH PATIENT. SHOWING MULTILEVEL DEGENERATIVE DISC PROTRUSIONS LOWER THORACIC AREA. SHOWING SOME THORACIC SPINAL STENOSIS AT THE T8-12 REGION. DISCUSSED TREATMENT OPTIONS. FINDS OXYCODONE NOT VERY HELPFUL FOR HIS BACK PAIN. STATES IT MAKES HIM FEEL A LITTLE GROGGY FOR A SHORT TIME AND DOES NOT HELP THE PAIN. DISCUSSED MEDICATION OPTIONS. -. FALL RISK SCREENING: SCREENING : NO FALLS REPORTED IN THE LAST YEAR. PAIN SCREENING: PATIENT HAS A COMPLAINT OF ACUTE OR CHRONIC PAIN :YES LOCATION OF PAIN:LOW BACK INTENSITY OF PAIN (SCALE OF 1 TO 10):7 WHAT DOES YOUR PAIN FEEL LIKE:ACHING, BURNING, CONTINOUS DURATION:CONTINOUS, CONSTANT, ALL DAY PAIN IS INCREASED BY:ACTIVITIES PAIN IS DECREASED BY:OTHERS HEATING PAD NURSING NOTE: -. PAIN CENTER INTAKE QUESTIONS: DO YOU HAVE A HISTORY OF MRSA? :NO DO YOU TAKE A BLOOD THINNERS? :NO DO YOU HAVE ANY BLEEDING DISORDERS? :NO ANY NEW NUMBNESS OR WEAKNESS IN YOUR LEGS OR ARMS? :NO ANY PACEMAKER,DEFIBRILLATOR, OR DORSAL COLUMN STIMULATOR? :NO DO YOU HAVE ANY RASHES OR OPEN SORES? :NO ARE YOU ALLERGIC TO IV DYE? :NO ARE YOU DIABETIC? :NO ANY NEW PROBLEMS WITH YOUR MEDICATIONS? :NO HAVE YOU RECEIVED A VACCINE IN THE PAST 30 DAYS? :YES 2ND COVID 09/04/2020 DO YOU PLAN TO RECEIVE A VACCINE IN THE NEXT 21 DAYS? :NO DO YOU NEED ANY PRESCRIPTION? :NO DO YOU TAKE ANY IMMUNOSUPPRESSIVE MEDICATIONS? :NO IS THERE A CHANCE YOU COULD BE ? :NO ARE YOU BREAST FEEDING? :NO CURRENT MEDICATIONS TAKING EXCEDRIN MIGRAINE 250-250-65 MG TABLET 2 TABLETS ORALLY ONCE DAILY NEEDED TAKING GABAPENTIN 600 MG TABLET 1 TABLET ORALLY TID TAKING AMLODIPINE BESYLATE 10 MG TABLET TAKE 1 TABLET BY MOUTH ONCE DAILY TAKING OXYCODONE HCL 5 MG TABLET 1 TABLET NEEDED ORALLY Q8H PRN MDD3 #30 TAB SHOULD LAST 30 DAYS TAKING VIAGRA 100 MG TABLET 1 TABLET NEEDED ORALLY ONCE A DAY NOT-TAKING METHYLPREDNISOLONE 4 MG TABLET THERAPY PACK DIRECTED ORALLY DIRECTED, NOTES: COMPLETED LAST WEEK NOT-TAKING SOMA 350 MG TABLET 1 TABLET NEEDED ORALLY Q8H MDD3, NOTES: 06/04 1999 NOT-TAKING OXYCODONE HCL 5 MG TABLET 1 TABLET NEEDED ORALLY Q8H PRN FOR SEVERE PAIN EPISODES #45 TAB SHOULD LAST 30 DAYS MEDICATION LIST REVIEWED AND RECONCILED WITH THE PATIENT PAST MEDICAL HISTORY COPD HTN 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 SOCIAL HISTORY GENERAL: TOBACCO USE ARE YOU A:FORMER SMOKER QUIT IN 2008 HOW LONG HAS IT BEEN SINCE YOU LAST SMOKED?> 10 YEARS VAPORNO E-CIGARETTENO LATEX QUESTIONNAIRE LATEX ALLERGY : HAVE YOU EVER DEVELOPED ANY TYPE OF REACTION AFTER HANDLING LATEX PRODUCTS SUCH RUBBER GLOVES, CONDOMS, DIAPHRAGMS, BALLOONS, SOCKS, OR UNDERWEAR?NO LATEX ALLERGY : HAVE YOU EVER DEVELOPED ANY TYPE OF REACTION DURING OR AFTER DENTAL APPOINTMENT, VAGINAL/RECTAL EXAMINATION, SURGICAL PROCEDURE, OR ANY OTHER EXPOSURE?NO LATEX RISK : HAVE YOU EVER HAD ANY DIFFICULTY BREATHING OR HIVES AFTER EATING OR HANDLING ANY FRUITS, OR VEGETABLES; SUCH KIWI, BANANAS, STONE FRUITS, OR CHESTNUTSNO LATEX RISK : DO YOU HAVE A PREVIOUS PERSONAL HISTORY OF MORE THAN NINE SURGERIES, SPINA BIFIDA, OR REPEATED CATHERIZATIONS? NO LATEX RISK : ARE YOU FREQUENTLY EXPOSED TO LATEX PRODUCTS IN YOUR OCCUPATION?NO DATE ASKED : 09/25/2020 ALCOHOL USE: OCCASIONAL, YES. ALCOHOL SCREENING DID YOU HAVE A DRINK CONTAINING ALCOHOL IN THE PAST YEAR?YES HOW OFTEN DID YOU HAVE SIX OR MORE DRINKS ON ONE OCCASION IN THE PAST YEAR?NEVER (0 POINTS) HOW MANY DRINKS DID YOU HAVE ON A TYPICAL DAY WHEN YOU WERE DRINKING IN THE PAST YEAR?1 OR 2 (0 POINTS) HOW OFTEN DID YOU HAVE A DRINK CONTAINING ALCOHOL IN THE PAST YEAR?TWO TO THREE TIMES PER WEEK (3 POINTS) POINTS3 INTERPRETATIONNEGATIVE RECREATIONAL DRUG USE DRUG USE?NO CAFFEINE CAFFEINE USE?YES HOW OFTEN AND HOW MUCH? -1 1/2 CUPS COFFEE IN AM SEXUAL HX HAD SEX IN THE LAST 12 MONTHS (VAGINAL, ORAL, OR ANAL)?YES WITHWOMEN ONLY PREVENTION STRATEGIES DISCUSSED:OTHER USE PROTECTION?NO HAVE YOU EVER HAD AN STD?NO HIV / HEP-C SCREENING HIV TEST OFFERED TO PATIENT:YES DATE OFFERED:07/21/2018 TEST ACCEPTED:NO HEP-C TEST OFFERED TO PATIENT:YES DATE OFFERED:07/21/2018 REASON:PATIENT DECLINED -BLOOD DONOR-ALREADY TESTED TEST ACCEPTED:NO REASON:PATIENT DECLINED -BLOOD DONOR-ALREADY TESTED BROCHURE PROVIDED TO PATIENTNO SIKH [id number] [employer] LANGUAGES SPOKEN:MONGOLIAN EDUCATION LEVEL OF EDUCATION:FINISHED HIGH SCHOOL LEARNING BARRIERS / SPECIAL NEEDS CHANGE FROM LAST VISIT?NO BARRIERS TO LEARNING?NO HEARING IMPAIRED?NO VISION IMPAIRED?YES :CORRECTIVE LENSES -READERS COGNITIVELY IMPAIRED?NO READINESS TO LEARN?YES LEARNING PREFERENCES?NO LEARNING CAPABILITIES PRESENT?YES EMOTIONAL BARRIERS?NO SPECIAL DEVICES?NO INSTRUMENTATION AND CONTROL TECHNICIAN NEEDED?NO DOMESTIC VIOLENCE DO YOU FEEL SAFE IN YOUR ENVIRONMENT?YES OCCUPATION: [employer]. DIET: REGULAR. EXERCISE: NO REGULAR EXERCISE. MARITAL STATUS: .. OTHERS AT HOME: FATHER, MOTHER, CHILD, OTHER NON-RELATIVE. - HAS THE PATIENT BEEN EDUCATED REGARDING HIS/HER PLAN OF CARE?YES HAS THE PATIENT BEEN EDUCATED REGARDING PAIN, THE RISK FOR PAIN, THE IMPORTANCE OF EFFECTIVE PAIN MANAGEMENT, AND THE PAIN ASSESSMENT PROCESS?YES ADVANCE DIRECTIVE ADVANCE DIRECTIVE DISCUSSED WITH PATIENT:YES PT WAS GIVEN INFORMATION ON HCP LAST VISIT AND HE WILL BRING IT IN AND HAVE US WITNESS IT. REVIEW OF SYSTEMS CONSTITUTIONAL: ANY RECENT FEVER NO . CHILLS NO . WEIGHT CHANGE OF UNKNOWN REASONS NO . GASTROENTEROLOGY: NEW UNEXPLAINABLE CHANGES IN BOWEL CONTROL NO . CONSTIPATION NO . GENITOURINARY: ANY NEW CHANGE IN BLADDER CONTROL? NO . NEUROLOGY: NEW ONSET DIZZINESS OR NEUROLOGICAL CHANGES NOT MENTIONED NO . NEW NUMBNESS OR PAIN PATTERNS NOT MENTIONED AND PERTINENT TO TODAY'S VISIT NO . CARDIOLOGY: NEW CHEST PRESSURE NO . PATIENT DENIES NO . RESPIRATORY: UNEXPLAINABLE COUGH NO . NEW SHORTNESS OF BREATH NO . VITAL SIGNS WT 167.8 LBS, HT 5'7", BMI 26.28 INDEX, BP 129/85 MM HG, HR 80 /MIN, RR 18 /MIN, TEMP 97.6 F, OXYGEN SAT % 97%, SAFE IN ENV? (Y/N) YES, NA INITIALS AW [id number].KOKO VELIZ. EXAMINATION GENERAL EXAMINATION: GENERALNO ACUTE DISTRESS, WELL NOURISHED AND HYDRATED. PSYCHAPPROPRIATE MOOD AND AFFECT . LUNGS:CLEAR TO AUSCULTATION BILATERALLY, NO WHEEZES, RHONCHI, RALES. HEART:NO MURMURS, REGULAR RATE AND RHYTHM. THORACIC SPINE: TRIGGER POINTS: ELICITED WITH PALPATION OVER MID THORACIC/LOWER THORACIC MUSCLES WITH INCREASED PAIN IN THIS AREA WITH RANGE OF JOINT MOTION OF THE SPINE.. DIAGNOSTIC TESTS REVIEWED MRITHORACIC SPINE-2020. ASSESSMENTS MYALGIA, OTHER SITE - M79.18 (PRIMARY) THORACIC SPINAL STENOSIS - M48.04 TREATMENT MYALGIA, OTHER SITE STOP OXYCODONE HCL TABLET, 5 MG, 1 TABLET NEEDED, ORALLY, Q8H PRN MDD3 #30 TAB SHOULD LAST 30 DAYS START HYDROCODONE-ACETAMINOPHEN TABLET, 5-325 MG, 1 TO 2 TAB, ORALLY, EVERY 6 HRS MDD4, 30 DAYS, 120 MEDICATION: VALIUM TAB 5MG ORALLY (DIAZEPAM) (ORDERED FOR 10/02/2020) MED: PAIN NORCO TABLET 5MG/325MG ORALLY HYDROCODONE/ACETAMINOPHEN (ORDERED FOR 10/02/2020) NOTES: TRIGGER POINT INJECTIONS BILATERAL THORACIC,BILATERAL LUMBAR ADVISED PATIENT TO TAKE OXYCODONE THAT HE HAS LEFT TO [facility] FOR FORMAL WASTING. , ISTOP REGISTRY REVIEWED AND DEMONSTRATES COMPLLIANCE. BRINGS IN MEDICATIONS WHICH IS APPROPRIATE FOR WHAT WAS DISPENSED. RECENT URINE TOXICOLOGY REVIEWED. NO UNAUTHORIZED MEDICATIONS. NO ILLICIT SUBSTANCES AND PRESCRIBED MEDICATIONS WERE PRESENT. PROCEDURE CODES FA211 ESTABILISHED PATIENT [facility] FACILITY CHARGE DISPOSITION & COMMUNICATION FOLLOW UP POST (REASON: TRIGGER POINT INJECTIONS BILATERAL THORACIC,BILATERAL LUMBAR) ELECTRONICALLY SIGNED BY ZEHRA VALENCIA ON 09/27/2020 AT 02:17 PM EDT DISCLAIMER : THIS IS A VISIT SUMMARY EXTRACTED FROM THE [employer] CHART. IT IS NOT A COPY OF THE [employer] PROGRESS NOTE. BARRETTD
== END ==
LOC: M PAIN 14:15
PROVIDERS: ATTEND Nurse Practitioner Family
DX: M79.18 Myalgia, other site (principal); M48.04 Spinal stenosis, thoracic region; J44.9 Chronic obstructive pulmonary disease, unspecified; Z87.891 Personal history of nicotine dependence; Z79.899 Other long term (current) drug therapy

== ENCOUNTER → 2020-09-28 | Outpatient (CLI) | payer BC | LOC: M LABSMTC 11:41 | PROVIDERS: ATTEND Anesthesiology | DX: Z20.822 Contact with and (suspected) exposure to COVID-19 (principal) ==

== ENCOUNTER → 2020-10-03 | Outpatient (CLI) | payer BC ==
[~2020-10-03] MED LIST changes: +BUPIVACAINE HCL 0.25% 10ML VIAL As Ordered ONE; +BUPIVACAINE HCL 0.25% 30ML VIAL As Ordered ONE; +NORCO, ANEXSIA 5/325MG TABLET (HYDROcodone/ACETAMINOPHEN) As Ordered ONE; +TRIAMCINOLONE ACETONIDE SUSP 40 MG/ML VIAL (J3301) As Ordered ONE; +diazePAM 5MG TABLET As Ordered ONE
--- NOTE | 2020-10-09 00:49 | ECWPNPC ---
PATIENT NAME: MAXIME MCKEON : 1970 GENDER: MALE VISIT DATE: 10/03/2020 DISCHARGE DATE: 10/03/20 1000 VISIT LOCKED DATE TIME: PHYSICIAN: TOMASZ PHILIP MD PHYSICIAN PAGER NO: ACTIVE RESOURCE: TOMASZ PHILIP MD REASON FOR APPOINTMENT 1. TRIGGER POINT INJECTIONS BILATERAL THORACIC,BILATERAL LUMBAR HISTORY OF PRESENT ILLNESS GENERAL: -. FALL RISK SCREENING: SCREENING : NO FALLS REPORTED IN THE LAST YEAR. PAIN SCREENING: PATIENT HAS A COMPLAINT OF ACUTE OR CHRONIC PAIN :YES LOCATION OF PAIN:MID BACK, LOW BACK INTENSITY OF PAIN (SCALE OF 1 TO 10):6 WHAT DOES YOUR PAIN FEEL LIKE:ACHING, BURNING DURATION:CONTINOUS NURSING NOTE: -. PAIN CENTER INTAKE QUESTIONS: DO YOU HAVE A HISTORY OF MRSA? :NO DO YOU TAKE A BLOOD THINNERS? :NO DO YOU HAVE ANY BLEEDING DISORDERS? :NO ANY NEW NUMBNESS OR WEAKNESS IN YOUR LEGS OR ARMS? :NO ANY PACEMAKER,DEFIBRILLATOR, OR DORSAL COLUMN STIMULATOR? :NO DO YOU HAVE ANY RASHES OR OPEN SORES? :NO ARE YOU ALLERGIC TO IV DYE? :NO ARE YOU DIABETIC? :NO ANY NEW PROBLEMS WITH YOUR MEDICATIONS? :NO HAVE YOU RECEIVED A VACCINE IN THE PAST 30 DAYS? :YES IF SO WHAT VACCINE AND WHEN? SEPTEMBER 05 MODERNA COVID VACCINE DO YOU PLAN TO RECEIVE A VACCINE IN THE NEXT 21 DAYS? :NO DO YOU TAKE ANY IMMUNOSUPPRESSIVE MEDICATIONS? :NO ANY HISTORY OF SEIZURES? :NO ANY HISTORY OF CARDIAC ISSUES OR EVENTS? :NO DO YOU HAVE ANY KIDNEY OR LIVER DISEASE? :NO DO YOU HAVE SLEEP APNEA? :NO ANY RECENT HEAD INJURY? :NO DO YOU HAVE ANY NEW INFECTIONS? :NO IS THERE A CHANCE YOU COULD BE ? :NO ARE YOU BREAST FEEDING? :NO WHEN DID YOU LAST EAT? : 10/02 2099 WHEN DID YOU LAST DRINK? : 10/03 599 WHAT DID YOU LAST DRINK? : WATER NAME OF PERSON DRIVING YOU HOME? : -DARIO MCGEE DO YOU HAVE ANY OTHER QUESTIONS OR CONCERNS? : -DENIES CURRENT MEDICATIONS TAKING EXCEDRIN MIGRAINE 250-250-65 MG TABLET 2 TABLETS ORALLY ONCE DAILY NEEDED, NOTES: NONE RECENT TAKING GABAPENTIN 600 MG TABLET 1 TABLET ORALLY TID, NOTES: 10/03 629 TAKING AMLODIPINE BESYLATE 10 MG TABLET TAKE 1 TABLET BY MOUTH ONCE DAILY , NOTES: 10/03 629 TAKING VIAGRA 100 MG TABLET 1 TABLET NEEDED ORALLY ONCE A DAY TAKING HYDROCODONE-ACETAMINOPHEN 5-325 MG TABLET 1 TO 2 TAB ORALLY EVERY 6 HRS MDD4, NOTES: 10/04 399 NOT-TAKING METHYLPREDNISOLONE 4 MG TABLET THERAPY PACK DIRECTED ORALLY DIRECTED, NOTES: COMPLETED LAST WEEK NOT-TAKING SOMA 350 MG TABLET 1 TABLET NEEDED ORALLY Q8H MDD3, NOTES: 06/04 1999 NOT-TAKING OXYCODONE HCL 5 MG TABLET 1 TABLET NEEDED ORALLY Q8H PRN FOR SEVERE PAIN EPISODES #45 TAB SHOULD LAST 30 DAYS MEDICATION LIST REVIEWED AND RECONCILED WITH THE PATIENT PAST MEDICAL HISTORY COPD HTN 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 SOCIAL HISTORY GENERAL: TOBACCO USE ARE YOU A:FORMER SMOKER QUIT IN 2008 HOW LONG HAS IT BEEN SINCE YOU LAST SMOKED?> 10 YEARS VAPORNO E-CIGARETTENO LATEX QUESTIONNAIRE LATEX ALLERGY : HAVE YOU EVER DEVELOPED ANY TYPE OF REACTION AFTER HANDLING LATEX PRODUCTS SUCH RUBBER GLOVES, CONDOMS, DIAPHRAGMS, BALLOONS, SOCKS, OR UNDERWEAR?NO LATEX ALLERGY : HAVE YOU EVER DEVELOPED ANY TYPE OF REACTION DURING OR AFTER DENTAL APPOINTMENT, VAGINAL/RECTAL EXAMINATION, SURGICAL PROCEDURE, OR ANY OTHER EXPOSURE?NO LATEX RISK : HAVE YOU EVER HAD ANY DIFFICULTY BREATHING OR HIVES AFTER EATING OR HANDLING ANY FRUITS, OR VEGETABLES; SUCH KIWI, BANANAS, STONE FRUITS, OR CHESTNUTSNO LATEX RISK : DO YOU HAVE A PREVIOUS PERSONAL HISTORY OF MORE THAN NINE SURGERIES, SPINA BIFIDA, OR REPEATED CATHERIZATIONS? NO LATEX RISK : ARE YOU FREQUENTLY EXPOSED TO LATEX PRODUCTS IN YOUR OCCUPATION?NO DATE ASKED : 10/03/2020 ALCOHOL USE: OCCASIONAL, YES. ALCOHOL SCREENING DID YOU HAVE A DRINK CONTAINING ALCOHOL IN THE PAST YEAR?YES HOW OFTEN DID YOU HAVE SIX OR MORE DRINKS ON ONE OCCASION IN THE PAST YEAR?NEVER (0 POINTS) HOW MANY DRINKS DID YOU HAVE ON A TYPICAL DAY WHEN YOU WERE DRINKING IN THE PAST YEAR?1 OR 2 (0 POINTS) HOW OFTEN DID YOU HAVE A DRINK CONTAINING ALCOHOL IN THE PAST YEAR?TWO TO THREE TIMES PER WEEK (3 POINTS) POINTS3 INTERPRETATIONNEGATIVE RECREATIONAL DRUG USE DRUG USE?NO CAFFEINE CAFFEINE USE?YES HOW OFTEN AND HOW MUCH? -1 1/2 CUPS COFFEE IN AM SEXUAL HX HAD SEX IN THE LAST 12 MONTHS (VAGINAL, ORAL, OR ANAL)?YES WITHWOMEN ONLY PREVENTION STRATEGIES DISCUSSED:OTHER USE PROTECTION?NO HAVE YOU EVER HAD AN STD?NO HIV / HEP-C SCREENING HIV TEST OFFERED TO PATIENT:YES DATE OFFERED:07/21/2018 TEST ACCEPTED:NO HEP-C TEST OFFERED TO PATIENT:YES DATE OFFERED:07/21/2018 REASON:PATIENT DECLINED -BLOOD DONOR-ALREADY TESTED TEST ACCEPTED:NO REASON:PATIENT DECLINED -BLOOD DONOR-ALREADY TESTED BROCHURE PROVIDED TO PATIENTNO JEW [id number] NONDENOMINATIONAL LANGUAGE LANGUAGES SPOKEN:POLISH EDUCATION LEVEL OF EDUCATION:FINISHED HIGH SCHOOL LEARNING BARRIERS / SPECIAL NEEDS CHANGE FROM LAST VISIT?NO BARRIERS TO LEARNING?NO HEARING IMPAIRED?NO VISION IMPAIRED?YES :CORRECTIVE LENSES -READERS COGNITIVELY IMPAIRED?NO READINESS TO LEARN?YES LEARNING PREFERENCES?NO LEARNING CAPABILITIES PRESENT?YES EMOTIONAL BARRIERS?NO SPECIAL DEVICES?NO SUPERVISOR PIPELINE NEEDED?NO DOMESTIC VIOLENCE DO YOU FEEL SAFE IN YOUR ENVIRONMENT?YES 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 DIET: REGULAR. EXERCISE: NO REGULAR EXERCISE. MARITAL STATUS: .. OTHERS AT HOME: FATHER, MOTHER, CHILD, OTHER NON-RELATIVE. - HAS THE PATIENT BEEN EDUCATED REGARDING HIS/HER PLAN OF CARE?YES HAS THE PATIENT BEEN EDUCATED REGARDING PAIN, THE RISK FOR PAIN, THE IMPORTANCE OF EFFECTIVE PAIN MANAGEMENT, AND THE PAIN ASSESSMENT PROCESS?YES ADVANCE DIRECTIVE ADVANCE DIRECTIVE DISCUSSED WITH PATIENT:YES PT WAS GIVEN INFORMATION ON HCP AT A PREVIOUS VISIT AND HE WILL BRING IT IN AND HAVE US WITNESS IT. ASSISTANCE OFFERED IN COMPLETING FORM IF NEEDED VITAL SIGNS WT 161.8 LBS, HT 5'7", BMI 25.34 INDEX, BP 144/98 MM HG, HR 71 /MIN, RR 18 /MIN, TEMP 98.2 F, OXYGEN SAT % 96%, SAFE IN ENV? (Y/N) Y, NA INITIALS AW 0825, REVIEWED BY: Julio PATEL RN. EXAMINATION GENERAL: A HISTORY AND PHYSICAL EXAM ON THE PATIENT WAS DONE ON 09/25/2020 (DATE OF ORIGINAL ASSESSMENT) IN PREPARATION OF SURGERY/PROCEDURE. I HAVE NOW REASSESSED THIS PATIENT'S HEALTH STATUS AND PERFORMED AN UPDATED EXAM TODAY. ALL CHANGES IN THE PATIENT'S HISTORY, PHYSICAL EXAM, PRE-EXISTING CONDITONS, AND INDICATIONS/CONTRAINDICATIONS TO THE PLANNED PROCEDURE AND ANESTHESIA ARE DOCUMENTED AND EVALUATED BELOW. I ATTEST TO THE ADEQUACY AND APPROPRIATENESS OF MY ASSESSMENT, AND CONFIRM THE NECESSITY FOR THE PLANNED PROCEDURE. THE PATIENT IS ALERT, ORIENTED TIMES THREE AND COOPERATIVE. LUNGS ARE CLEAR TO AUSCULTATION. HEART SHOWS REGULAR RHYTHM, NO MURMURS AND NO GALLOPS. ASSESSMENTS MYALGIA, OTHER SITE - M79.18 (PRIMARY) TREATMENT MYALGIA, OTHER SITE COMPLETION OF PROCEDURAL VISIT WHEN MEETS CRITERIADEVANDANA WESTITA 10/03/2020 9:59:57 AM > CRITERIA MET 0958 MEDICATION: VALIUM TAB 5MG ORALLY (DIAZEPAM)ISHAN AQUINO [place] 10/03/2020 8:43:54 AM > VERIFIED. AMANDARAMSES MARTINEZ 10/03/2020 9:04:51 AM > ADMINISTERED MED: PAIN NORCO TABLET 5MG/325MG ORALLY HYDROCODONE/ACETAMINOPHENSADIEPIFANIOISHAN GARRETT [place] 10/03/2020 8:44:06 AM > VERIFIED. RAMSES PATEL 10/03/2020 9:05:21 AM > ADMINISTERED PROCEDURES PAIN NURSING RECORD PROCEDURE IN ROOM 0825, PHYSICIAN IN ROOM 0936, START 0940, FINISH 0943, PHYSICIAN OUT OF ROOM 0944, OUT OF ROOM 0958, ECG N/A, PATIENT SHIELDED N/A, SAFETY STRAP N/A, PREP ALCOHOL DR. PHILIP, DRESSING TEGADERM Julio PATEL RN LOC: AMANDARAMSES 10/03/2020 9:06:30 AM > 1. ALERT, ORIENTED RESP: RAMSES PATEL 10/03/2020 9:06:34 AM > 1. REGULAR, NO DYSPNEA COLOR: RAMSES PATEL 10/03/2020 9:06:37 AM > 1. PINK SKIN: RAMSES PATEL 10/03/2020 9:06:40 AM > 1. WARM, DRY POSITION: AMANDARAMSES 10/03/2020 9:06:49 AM > 5. SITTING VITALS: RAMSES PATEL 10/03/2020 9:20:45 AM > 131/89,69,16,97% RAMSES APTEL 10/03/2020 9:34:34 AM > 124/88,58,16,97% RAMSES PATEL 10/03/2020 9:54:10 AM > 142/89,59,16,96% NOTES PAT COMPLETE 10/02/20 @ 1311 Ethan BRIDGES RN COMPLETION OF PROCEDURE APPOINTMENT: POST PAIN 5, DRESSING SITE DRY AND INTACT, IV N/A, GAIT STEADY, TEACHING COMPLETED, PATIENT ACKNOWLEDGES UNDERSTANDING YES, PROCEDURE APPOINTMENT COMPLETED AT 0958 BY: Julio PATEL RN PN TRIGGER POINT INJECTION WITH STEROIDS PRE PROCEDURE DIAGNOSIS 1. MYALGIA 2. PAIN AT BILATERAL THORACIC AREA AND BILATERAL LOW BACK AREA POST PROCEDURE DIAGNOSIS 1. MYALGIA 2. PAIN AT BILATERAL THORACIC AREA AND BILATERAL LOW BACK AREA PROCEDURE TRIGGER POINT INJECTION AT BILATERAL THORACIC AREA AND BILATERAL LOW BACK AREA SURGEON DR. TOMASZ PHILIP MOP MAN NONE ANESTHESIA LOCAL PRE PROCEDURE NOTE THE PATIENT HAS A HISTORY OF CHRONIC PAIN AT THE RIGHT AND LEFT THORACIC AREA AND RIGHT AND LEFT LOW BACK AREA. I EVALUATED THE PATIENT AND REVIEWED THE CHART. THERE IS EVIDENCE OF BANDS OF TISSUE WITH RESTRICTION OF MOVEMENT AND PRESENCE OF TRIGGER POINT AT THE LEFT THORACIC AREA AND RIGHT AND LEFT LOW BACK AREA. I WENT OVER THE RISKS, ALTERNATIVES, AND BENEFITS ASSOCIATED WITH THIS PROCEDURE. THE PATIENT WOULD LIKE TO PROCEED AND GIVE CONSENT TO PERFORMED THE PROCEDURE. THE PATIENT DENIES UNEXPLAINABLE WEIGHT LOSS, FEVER, CHILLS, OR NEW CHANGES IN URINARY OR BOWEL CONTROL. THE PATIENT IS COVID-19 NEGATIVE DESCRIPTION OF PROCEDURE THE PATIENT WAS BROUGHT TO THE PROCEDURE ROOM AND PLACED IN THE SITTING POSITION. THE AREA WAS CLEANED WITH ALCOHOL. THE PROCEDURE WAS DONE USING ASEPTIC STERILE TECHNIQUE. A TIMEOUT WAS PERFORMED WHERE THE CONSENTED SITE WAS VERIFIED WITH EVERYONE IN THE ROOM. USING A 25-GAUGE NEEDLE, TRIGGER POINTS WERE INJECTED AT THE LEFT THORACIC AREA AND RIGHT AND LEFT LOW BACK AREA WITH A TOTAL OF 40 ML OF BUPIVACAINE 0.25% AND KENALOG 40 MG. THE MEDICATIONS WERE VERIFIED WITH THE NURSE. THERE WAS NO EVIDENCE OF BLOOD OR PARESTHESIA DURING THE PROCEDURE. THE PATIENT WAS SENT TO THE RECOVERY ROOM. THE PATIENT WAS MOVING THE EXTREMITIES AND DOING WELL. THERE WERE NO COMPLICATIONS DURING THE PROCEDURE. ESTIMATED BLOOD LOSS WAS LESS THAN 5 ML POST PROCEDURE NOTE THE PROCEDURE DONE WAS DISCUSSED WITH THE PATIENT. THE PATIENT WILL BE SEEN IN A FOLLOW UP IN THE NEXT FEW WEEKS. I AM LOOKING FOR LONG LASTING PAIN RELIEF FOR THE PATIENT WITH THIS INTERVENTION. INSTRUCTIONS WERE GIVEN, QUESTIONS WERE ANSWERED, AND THE PATIENT EXPRESSED UNDERSTANDING AND AGREES WITH THE PLAN. I, ERIC ESCAMILLA, DOCUMENTED THE ABOVE INFORMATION ACTING A SCRIBE FOR DR. PHILIP. I HAVE REVIEWED THE ABOVE DOCUMENT, WRITTEN BY ERIC ESCAMILLA, INSURANCE ACCOUNT REPRESENTATIVE, AND I VERIFY THAT IT IS ACCURATE PROCEDURE CODES 08216 INJECT TRIGGER POINTS 3/> DISPOSITION & COMMUNICATION FOLLOW UP FOLLOW UP WITH OFFICE ADMIN (REASON: POST TRIGGER POINT INJECTIONS BILATERAL THORACIC AND BILATERAL LOW BACK) ELECTRONICALLY SIGNED BY TOMASZ PHILIP MD, MD ON 10/08/2020 AT 11:42 AM EDT DISCLAIMER : THIS IS A VISIT SUMMARY EXTRACTED FROM THE [employer] CHART. IT IS NOT A COPY OF THE [employer] PROGRESS NOTE. DAVID
== END ==
LOC: M PAIN 08:30
PROVIDERS: ATTEND Anesthesiology
DX: M79.18 Myalgia, other site (principal); J44.9 Chronic obstructive pulmonary disease, unspecified; I10 Essential (primary) hypertension; Z87.891 Personal history of nicotine dependence; Z79.891 Long term (current) use of opiate analgesic; Z79.899 Other long term (current) drug therapy
CPT/HCPCS: 20553; J3301

== ENCOUNTER → 2020-10-17 | Outpatient (CLI) | payer BC ==
[~2020-10-17] MED LIST changes: -BUPIVACAINE HCL 0.25% 10ML VIAL As Ordered ONE; -BUPIVACAINE HCL 0.25% 30ML VIAL As Ordered ONE; -NORCO, ANEXSIA 5/325MG TABLET (HYDROcodone/ACETAMINOPHEN) As Ordered ONE; -TRIAMCINOLONE ACETONIDE SUSP 40 MG/ML VIAL (J3301) As Ordered ONE; -diazePAM 5MG TABLET As Ordered ONE
--- NOTE | 2020-10-19 04:32 | ECWPNPC ---
PATIENT NAME: MAXIME MCKEON : 1970 GENDER: MALE VISIT DATE: 10/17/2020 DISCHARGE DATE: 10/17/20 1000 VISIT LOCKED DATE TIME: PHYSICIAN: FREDERICK SCHWARTZ PHYSICIAN PAGER NO: ACTIVE RESOURCE: FREDERICK SCHWARTZ REASON FOR APPOINTMENT 1. POST TRIGGER POINT INJECTIONS BILATERAL THORACIC,BILATERAL LUMBAR HISTORY OF PRESENT ILLNESS GENERAL: HERE FOR POST PROCEDURE FOLLOW-UP. HAD TRIGGER POINT INJECTIONS BILATERAL THORACIC AND BILATERAL LUMBAR ON 10/03/2020. REPORTING IMPROVEMENT WITH RANGE OF JOINT MOTION AND PAIN IN THE THORACIC AREA. REPORTING SOME AGGRAVATION IN THE LOWER BACK AREA AFTER THE PROCEDURE THAT SEEMS TO BE GETTING BETTER. FINDS CURRENT CHRONIC PAIN MEDICATION HELPFUL AT REDUCING PAIN AND KEEPING HIM FUNCTIONAL. DENIES ADVERSE SIDE EFFECTS WITH MEDICATION. BRINGS HIS MEDICATION IN THE CLINIC WHICH IS APPROPRIATE FOR WHAT WAS DISPENSED. -. FALL RISK SCREENING: SCREENING : NO FALLS REPORTED IN THE LAST YEAR. PAIN SCREENING: PATIENT HAS A COMPLAINT OF ACUTE OR CHRONIC PAIN :YES LOCATION OF PAIN:LOW BACK INTENSITY OF PAIN (SCALE OF 1 TO 10):5 WHAT DOES YOUR PAIN FEEL LIKE:BURNING, OTHER PRESSUE DURATION:CONTINOUS, CONSTANT, ALL DAY PAIN IS INCREASED BY:ACTIVITIES PAIN IS DECREASED BY:USE OF PAIN MEDICATIONS NURSING NOTE: -. PAIN CENTER INTAKE QUESTIONS: DO YOU HAVE A HISTORY OF MRSA? :NO DO YOU TAKE A BLOOD THINNERS? :NO DO YOU HAVE ANY BLEEDING DISORDERS? :NO ANY NEW NUMBNESS OR WEAKNESS IN YOUR LEGS OR ARMS? :NO ANY PACEMAKER,DEFIBRILLATOR, OR DORSAL COLUMN STIMULATOR? :NO DO YOU HAVE ANY RASHES OR OPEN SORES? :NO ARE YOU ALLERGIC TO IV DYE? :NO ARE YOU DIABETIC? :NO ANY NEW PROBLEMS WITH YOUR MEDICATIONS? :NO HAVE YOU RECEIVED A VACCINE IN THE PAST 30 DAYS? :YES 2ND COVID 09/04/2020 DO YOU PLAN TO RECEIVE A VACCINE IN THE NEXT 21 DAYS? :NO DO YOU NEED ANY PRESCRIPTION? :NO DO YOU TAKE ANY IMMUNOSUPPRESSIVE MEDICATIONS? :NO IS THERE A CHANCE YOU COULD BE ? :NO ARE YOU BREAST FEEDING? :NO CURRENT MEDICATIONS TAKING EXCEDRIN MIGRAINE 250-250-65 MG TABLET 2 TABLETS ORALLY ONCE DAILY NEEDED TAKING GABAPENTIN 600 MG TABLET 1 TABLET ORALLY TID TAKING AMLODIPINE BESYLATE 10 MG TABLET TAKE 1 TABLET BY MOUTH ONCE DAILY TAKING VIAGRA 100 MG TABLET 1 TABLET NEEDED ORALLY ONCE A DAY TAKING HYDROCODONE-ACETAMINOPHEN 5-325 MG TABLET 1 TO 2 TAB ORALLY EVERY 6 HRS MDD4 NOT-TAKING METHYLPREDNISOLONE 4 MG TABLET THERAPY PACK DIRECTED ORALLY DIRECTED, NOTES: COMPLETED LAST WEEK NOT-TAKING SOMA 350 MG TABLET 1 TABLET NEEDED ORALLY Q8H MDD3, NOTES: 06/04 1999 NOT-TAKING OXYCODONE HCL 5 MG TABLET 1 TABLET NEEDED ORALLY Q8H PRN FOR SEVERE PAIN EPISODES #45 TAB SHOULD LAST 30 DAYS MEDICATION LIST REVIEWED AND RECONCILED WITH THE PATIENT PAST MEDICAL HISTORY COPD HTN 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 SOCIAL HISTORY GENERAL: TOBACCO USE ARE YOU A:FORMER SMOKER QUIT IN 2008 HOW LONG HAS IT BEEN SINCE YOU LAST SMOKED?> 10 YEARS VAPORNO E-CIGARETTENO LATEX QUESTIONNAIRE LATEX ALLERGY : HAVE YOU EVER DEVELOPED ANY TYPE OF REACTION AFTER HANDLING LATEX PRODUCTS SUCH RUBBER GLOVES, CONDOMS, DIAPHRAGMS, BALLOONS, SOCKS, OR UNDERWEAR?NO LATEX ALLERGY : HAVE YOU EVER DEVELOPED ANY TYPE OF REACTION DURING OR AFTER DENTAL APPOINTMENT, VAGINAL/RECTAL EXAMINATION, SURGICAL PROCEDURE, OR ANY OTHER EXPOSURE?NO LATEX RISK : HAVE YOU EVER HAD ANY DIFFICULTY BREATHING OR HIVES AFTER EATING OR HANDLING ANY FRUITS, OR VEGETABLES; SUCH KIWI, BANANAS, STONE FRUITS, OR CHESTNUTSNO LATEX RISK : DO YOU HAVE A PREVIOUS PERSONAL HISTORY OF MORE THAN NINE SURGERIES, SPINA BIFIDA, OR REPEATED CATHERIZATIONS? NO LATEX RISK : ARE YOU FREQUENTLY EXPOSED TO LATEX PRODUCTS IN YOUR OCCUPATION?NO DATE ASKED : 10/17/2020 ALCOHOL USE: OCCASIONAL, YES. ALCOHOL SCREENING DID YOU HAVE A DRINK CONTAINING ALCOHOL IN THE PAST YEAR?YES HOW OFTEN DID YOU HAVE SIX OR MORE DRINKS ON ONE OCCASION IN THE PAST YEAR?NEVER (0 POINTS) HOW MANY DRINKS DID YOU HAVE ON A TYPICAL DAY WHEN YOU WERE DRINKING IN THE PAST YEAR?1 OR 2 (0 POINTS) HOW OFTEN DID YOU HAVE A DRINK CONTAINING ALCOHOL IN THE PAST YEAR?TWO TO THREE TIMES PER WEEK (3 POINTS) POINTS3 INTERPRETATIONNEGATIVE RECREATIONAL DRUG USE DRUG USE?NO CAFFEINE CAFFEINE USE?YES HOW OFTEN AND HOW MUCH? -1 1/2 CUPS COFFEE IN AM SEXUAL HX HAD SEX IN THE LAST 12 MONTHS (VAGINAL, ORAL, OR ANAL)?YES WITHWOMEN ONLY PREVENTION STRATEGIES DISCUSSED:OTHER USE PROTECTION?NO HAVE YOU EVER HAD AN STD?NO HIV / HEP-C SCREENING HIV TEST OFFERED TO PATIENT:YES DATE OFFERED:07/21/2018 TEST ACCEPTED:NO HEP-C TEST OFFERED TO PATIENT:YES DATE OFFERED:07/21/2018 REASON:PATIENT DECLINED -BLOOD DONOR-ALREADY TESTED TEST ACCEPTED:NO REASON:PATIENT DECLINED -BLOOD DONOR-ALREADY TESTED BROCHURE PROVIDED TO PATIENTNO VOODOO [id number] ANGLICAN LANGUAGE LANGUAGES SPOKEN:CUB[place] EDUCATION LEVEL OF EDUCATION:FINISHED HIGH SCHOOL LEARNING BARRIERS / SPECIAL NEEDS CHANGE FROM LAST VISIT?NO BARRIERS TO LEARNING?NO HEARING IMPAIRED?NO VISION IMPAIRED?YES :CORRECTIVE LENSES -READERS COGNITIVELY IMPAIRED?NO READINESS TO LEARN?YES LEARNING PREFERENCES?NO LEARNING CAPABILITIES PRESENT?YES EMOTIONAL BARRIERS?NO SPECIAL DEVICES?NO SENIOR SOFTWARE DEVELOPER NEEDED?NO DOMESTIC VIOLENCE DO YOU FEEL SAFE IN YOUR ENVIRONMENT?YES 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 DIET: REGULAR. EXERCISE: NO REGULAR EXERCISE. MARITAL STATUS: .. OTHERS AT HOME: FATHER, MOTHER, CHILD, OTHER NON-RELATIVE. - HAS THE PATIENT BEEN EDUCATED REGARDING HIS/HER PLAN OF CARE?YES HAS THE PATIENT BEEN EDUCATED REGARDING PAIN, THE RISK FOR PAIN, THE IMPORTANCE OF EFFECTIVE PAIN MANAGEMENT, AND THE PAIN ASSESSMENT PROCESS?YES ADVANCE DIRECTIVE ADVANCE DIRECTIVE DISCUSSED WITH PATIENT:YES PT WAS GIVEN INFORMATION ON HCP AT A PREVIOUS VISIT AND HE WILL BRING IT IN AND HAVE US WITNESS IT. ASSISTANCE OFFERED IN COMPLETING FORM IF NEEDED REVIEW OF SYSTEMS CONSTITUTIONAL: ANY RECENT FEVER NO . CHILLS NO . WEIGHT CHANGE OF UNKNOWN REASONS NO . GASTROENTEROLOGY: NEW UNEXPLAINABLE CHANGES IN BOWEL CONTROL NO . CONSTIPATION NO . GENITOURINARY: ANY NEW CHANGE IN BLADDER CONTROL? NO . NEUROLOGY: NEW ONSET DIZZINESS OR NEUROLOGICAL CHANGES NOT MENTIONED NO . NEW NUMBNESS OR PAIN PATTERNS NOT MENTIONED AND PERTINENT TO TODAY'S VISIT NO . CARDIOLOGY: NEW CHEST PRESSURE NO . PATIENT DENIES NO . RESPIRATORY: UNEXPLAINABLE COUGH NO . NEW SHORTNESS OF BREATH NO . VITAL SIGNS WT 159.6 LBS, HT 5'7", BMI 24.99 INDEX, BP 138/92 MM HG, HR 63 /MIN, RR 18 /MIN, TEMP 97.9 F, OXYGEN SAT % 98%, SAFE IN ENV? (Y/N) YES, NA INITIALS CO 09:16T.[place], PATIENT STATED THAT HE HAS COFFEE ON HIS WAY INTO HIS APPOINTMENT TODAY AND THAT HE HAS A NEW POSITION AT WORK WHICH IS VERY STRESSFULL. EXAMINATION GENERAL EXAMINATION: GENERALAWAKE,ALERT ,PLEASANT . PSYCHAFFECT NORMAL . LUNGS:LUNG MOSER ARE CLEAR TO AUSCULTATION BILATERALLY. GOOD MOVEMENT OF AIR . HEART:S1, S2 IN A REGULAR RATE AND RHYTHM. NO SIGNIFICANT MURMURS, RUBS OR GALLOPS NOTED . ASSESSMENTS OTHER CHRONIC PAIN - G89.29 (PRIMARY) MYALGIA, OTHER SITE - M79.18 THORACIC SPINAL STENOSIS - M48.04 TREATMENT OTHER CHRONIC PAIN CONTINUE HYDROCODONE-ACETAMINOPHEN TABLET, 5-325 MG, 1 TO 2 TAB, ORALLY, EVERY 6 HRS MDD4 PAIN PROCEDURE LOGDATE OF PROCEDURE10/03/20PROCEDURE:TRIGGER POINT INJECTIONS BILATERAL THORACIC, BILATERAL LUMBARAMOUNT OF PRE SEDATEVALIUM 5 MG, NORCO 5-325 MGRESULT:IMPROVEMENT IN PAIN POST PROCEDURE NOTES: PATIENT IS GIVEN HOME STRETCHING EXERCISE FOR LOW BACK TODAY. I'VE ADVISED HIM TO DO HOME STRETCHING EXERCISES TWICE A DAY. FOLLOW-UP IS SCHEDULED IN 2 MONTHS. PRINTED INFORMATION ON LOWER BACK STRETCHING EXERCISE FOR PATIENT, AUREA VELIZ. PROCEDURE CODES FA211 ESTABILISHED PATIENT [facility] CHARGE DISPOSITION & COMMUNICATION FOLLOW UP 2 MONTHS (REASON: MEDICATION MANAGEMENT/URINE TOXICOLOGY/RESPONDS WELL TO TRIGGER POINT INJECTIONS) ELECTRONICALLY SIGNED BY ZEHRA VALENCIA ON 10/18/2020 AT 08:41 AM EDT DISCLAIMER : THIS IS A VISIT SUMMARY EXTRACTED FROM THE [employer] CHART. IT IS NOT A COPY OF THE [employer] PROGRESS NOTE. DAVID
== END ==
LOC: M PAIN 09:15
PROVIDERS: ATTEND Nurse Practitioner Family
DX: G89.29 Other chronic pain (principal); M79.18 Myalgia, other site; M48.04 Spinal stenosis, thoracic region; J44.9 Chronic obstructive pulmonary disease, unspecified; I10 Essential (primary) hypertension; Z87.891 Personal history of nicotine dependence; Z79.891 Long term (current) use of opiate analgesic; Z79.899 Other long term (current) drug therapy

== ENCOUNTER → 2020-11-25 | Outpatient (CLI) | payer BC ==
--- NOTE | 2020-11-28 00:22 | ECWPNPC ---
PATIENT NAME: MAXIME MCKEON : 1970 GENDER: MALE VISIT DATE: 11/25/2020 DISCHARGE DATE: 11/25/20 1444 VISIT LOCKED DATE TIME: PHYSICIAN: FREDERICK SCHWARTZ PHYSICIAN PAGER NO: ACTIVE RESOURCE: FREDERICK SCHWARTZ REASON FOR APPOINTMENT 1. WANTS PROCEDURE HISTORY OF PRESENT ILLNESS GENERAL: HERE FOR FOLLOW-UP OF CHRONIC LOW BACK PAIN. PAIN IN THE RIGHT LOW BACK WITH RADIATION INTO THE RIGHT THIGH HAS RETURNED. HAS RESPONDED WELL TO LUMBAR EPIDURAL STEROID INJECTION IN THE PAST. LAST LUMBAR EPIDURAL STEROID INJECTION RESOLVED HIS RIGHT LEG PAIN AND IMPROVED LOW BACK PAIN FOR 6 MONTHS POST PROCEDURE AND NOW PAIN HAS RETURNED. CONTINUES TO WORK FULL-TIME. USING MEDICATION PERIODICALLY FOR SEVERE PAIN EPISODES WITH GOOD EFFECT. DENIES ADVERSE SIDE EFFECTS WITH HIS MEDICATIONS. -. FALL RISK SCREENING: SCREENING : NO FALLS REPORTED IN THE LAST YEAR. PAIN SCREENING: PATIENT HAS A COMPLAINT OF ACUTE OR CHRONIC PAIN :YES LOCATION OF PAIN:LOW BACK INTENSITY OF PAIN (SCALE OF 1 TO 10):6 WHAT DOES YOUR PAIN FEEL LIKE:SHARP, STABBING, OTHER FEELS LIKE A PINCH NERVE DURATION:CONTINOUS, CONSTANT, ALL DAY PAIN IS INCREASED BY:ACTIVITIES, PROLONGED STANDING PAIN IS DECREASED BY:USE OF PAIN MEDICATIONS, OTHERS ICE AND HEAT NURSING NOTE: -. PAIN CENTER INTAKE QUESTIONS: DO YOU HAVE A HISTORY OF MRSA? :NO DO YOU TAKE A BLOOD THINNERS? :NO DO YOU HAVE ANY BLEEDING DISORDERS? :NO ANY NEW NUMBNESS OR WEAKNESS IN YOUR LEGS OR ARMS? :NO ANY PACEMAKER,DEFIBRILLATOR, OR DORSAL COLUMN STIMULATOR? :NO DO YOU HAVE ANY RASHES OR OPEN SORES? :NO ARE YOU ALLERGIC TO IV DYE? :NO ARE YOU DIABETIC? :NO ANY NEW PROBLEMS WITH YOUR MEDICATIONS? :NO HAVE YOU RECEIVED A VACCINE IN THE PAST 30 DAYS? :YES 2ND COVID 09/04/2020 DO YOU PLAN TO RECEIVE A VACCINE IN THE NEXT 21 DAYS? :NO DO YOU NEED ANY PRESCRIPTION? :NO DO YOU TAKE ANY IMMUNOSUPPRESSIVE MEDICATIONS? :NO IS THERE A CHANCE YOU COULD BE ? :NO ARE YOU BREAST FEEDING? :NO CURRENT MEDICATIONS TAKING EXCEDRIN MIGRAINE 250-250-65 MG TABLET 2 TABLETS ORALLY ONCE DAILY NEEDED TAKING GABAPENTIN 600 MG TABLET 1 TABLET ORALLY TID TAKING AMLODIPINE BESYLATE 10 MG TABLET TAKE 1 TABLET BY MOUTH ONCE DAILY TAKING VIAGRA 100 MG TABLET 1 TABLET NEEDED ORALLY ONCE A DAY TAKING HYDROCODONE-ACETAMINOPHEN 5-325 MG TABLET 1 TO 2 TAB ORALLY EVERY 6 HRS MDD4 NOT-TAKING METHYLPREDNISOLONE 4 MG TABLET THERAPY PACK DIRECTED ORALLY DIRECTED, NOTES: COMPLETED LAST WEEK NOT-TAKING SOMA 350 MG TABLET 1 TABLET NEEDED ORALLY Q8H MDD3, NOTES: 06/04 1999 NOT-TAKING OXYCODONE HCL 5 MG TABLET 1 TABLET NEEDED ORALLY Q8H PRN FOR SEVERE PAIN EPISODES #45 TAB SHOULD LAST 30 DAYS MEDICATION LIST REVIEWED AND RECONCILED WITH THE PATIENT PAST MEDICAL HISTORY COPD HTN CRUSHED DISC IN BACK COLLAPSED LEFT LUNG 2010 SPINAL MENINGITIS AGE 22 MID BACK 2ND COVID 09/04/2020 ALLERGIES N.K.D.A. SOCIAL HISTORY GENERAL: TOBACCO USE ARE YOU A:FORMER SMOKER QUIT IN 2008 HOW LONG HAS IT BEEN SINCE YOU LAST SMOKED?> 10 YEARS VAPORNO E-CIGARETTENO LATEX QUESTIONNAIRE LATEX ALLERGY : HAVE YOU EVER DEVELOPED ANY TYPE OF REACTION AFTER HANDLING LATEX PRODUCTS SUCH RUBBER GLOVES, CONDOMS, DIAPHRAGMS, BALLOONS, SOCKS, OR UNDERWEAR?NO LATEX ALLERGY : HAVE YOU EVER DEVELOPED ANY TYPE OF REACTION DURING OR AFTER DENTAL APPOINTMENT, VAGINAL/RECTAL EXAMINATION, SURGICAL PROCEDURE, OR ANY OTHER EXPOSURE?NO LATEX RISK : HAVE YOU EVER HAD ANY DIFFICULTY BREATHING OR HIVES AFTER EATING OR HANDLING ANY FRUITS, OR VEGETABLES; SUCH KIWI, BANANAS, STONE FRUITS, OR CHESTNUTSNO LATEX RISK : DO YOU HAVE A PREVIOUS PERSONAL HISTORY OF MORE THAN NINE SURGERIES, SPINA BIFIDA, OR REPEATED CATHERIZATIONS? NO LATEX RISK : ARE YOU FREQUENTLY EXPOSED TO LATEX PRODUCTS IN YOUR OCCUPATION?NO DATE ASKED : 11/25/2020 ALCOHOL USE: OCCASIONAL, YES. ALCOHOL SCREENING DID YOU HAVE A DRINK CONTAINING ALCOHOL IN THE PAST YEAR?YES HOW OFTEN DID YOU HAVE SIX OR MORE DRINKS ON ONE OCCASION IN THE PAST YEAR?NEVER (0 POINTS) HOW MANY DRINKS DID YOU HAVE ON A TYPICAL DAY WHEN YOU WERE DRINKING IN THE PAST YEAR?1 OR 2 (0 POINTS) HOW OFTEN DID YOU HAVE A DRINK CONTAINING ALCOHOL IN THE PAST YEAR?TWO TO THREE TIMES PER WEEK (3 POINTS) POINTS3 INTERPRETATIONNEGATIVE RECREATIONAL DRUG USE DRUG USE?NO CAFFEINE CAFFEINE USE?YES HOW OFTEN AND HOW MUCH? -1 1/2 CUPS COFFEE IN AM SEXUAL HX HAD SEX IN THE LAST 12 MONTHS (VAGINAL, ORAL, OR ANAL)?YES WITHWOMEN ONLY PREVENTION STRATEGIES DISCUSSED:OTHER USE PROTECTION?NO HAVE YOU EVER HAD AN STD?NO HIV / HEP-C SCREENING HIV TEST OFFERED TO PATIENT:YES DATE OFFERED:07/21/2018 TEST ACCEPTED:NO HEP-C TEST OFFERED TO PATIENT:YES DATE OFFERED:07/21/2018 REASON:PATIENT DECLINED -BLOOD DONOR-ALREADY TESTED TEST ACCEPTED:NO REASON:PATIENT DECLINED -BLOOD DONOR-ALREADY TESTED BROCHURE PROVIDED TO PATIENTNO CHRISTIAN [id number] MORMON LANGUAGE LANGUAGES SPOKEN:GERMAN EDUCATION LEVEL OF EDUCATION:FINISHED HIGH SCHOOL LEARNING BARRIERS / SPECIAL NEEDS CHANGE FROM LAST VISIT?NO BARRIERS TO LEARNING?NO HEARING IMPAIRED?NO VISION IMPAIRED?YES :CORRECTIVE LENSES -READERS COGNITIVELY IMPAIRED?NO READINESS TO LEARN?YES LEARNING PREFERENCES?NO LEARNING CAPABILITIES PRESENT?YES EMOTIONAL BARRIERS?NO SPECIAL DEVICES?NO SUPERVISOR PRINT LINE NEEDED?NO DOMESTIC VIOLENCE DO YOU FEEL SAFE IN YOUR ENVIRONMENT?YES 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 DIET: REGULAR. EXERCISE: NO REGULAR EXERCISE. MARITAL STATUS: .. OTHERS AT HOME: FATHER, MOTHER, CHILD, OTHER NON-RELATIVE. - HAS THE PATIENT BEEN EDUCATED REGARDING HIS/HER PLAN OF CARE?YES HAS THE PATIENT BEEN EDUCATED REGARDING PAIN, THE RISK FOR PAIN, THE IMPORTANCE OF EFFECTIVE PAIN MANAGEMENT, AND THE PAIN ASSESSMENT PROCESS?YES ADVANCE DIRECTIVE ADVANCE DIRECTIVE DISCUSSED WITH PATIENT:YES PT WAS GIVEN INFORMATION ON HCP AT A PREVIOUS VISIT AND HE WILL BRING IT IN AND HAVE US WITNESS IT. ASSISTANCE OFFERED IN COMPLETING FORM IF NEEDED REVIEW OF SYSTEMS CONSTITUTIONAL: ANY RECENT FEVER NO . CHILLS NO . WEIGHT CHANGE OF UNKNOWN REASONS NO . GASTROENTEROLOGY: NEW UNEXPLAINABLE CHANGES IN BOWEL CONTROL NO . CONSTIPATION NO . GENITOURINARY: ANY NEW CHANGE IN BLADDER CONTROL? NO . NEUROLOGY: NEW ONSET DIZZINESS OR NEUROLOGICAL CHANGES NOT MENTIONED NO . NEW NUMBNESS OR PAIN PATTERNS NOT MENTIONED AND PERTINENT TO TODAY'S VISIT NO . CARDIOLOGY: NEW CHEST PRESSURE NO . PATIENT DENIES NO . RESPIRATORY: UNEXPLAINABLE COUGH NO . NEW SHORTNESS OF BREATH NO . VITAL SIGNS WT 153 LBS, HT 5'7", BMI 23.96 INDEX, BP 130/97 MM HG, HR 81 /MIN, RR 18 /MIN, TEMP 97.8 F, OXYGEN SAT % 98, SAFE IN ENV? (Y/N) YEST.KOKO VELIZ. EXAMINATION GENERAL EXAMINATION: GENERAL AWAKE,ALERT ,PLEASANT . PSYCH AFFECT NORMAL . LUNGS: LUNG MOSER ARE CLEAR TO AUSCULTATION BILATERALLY. GOOD MOVEMENT OF AIR . HEART: S1, S2 IN A REGULAR RATE AND RHYTHM. NO SIGNIFICANT MURMURS, RUBS OR GALLOPS NOTED . LUMBAR: PALPATION: + FOR PAIN OVER L/S SPINE. + FOR PAIN OVER L/S PARASPINALS SLE: POSITIVE OVER RIGHT LEG AT 45 DEGREES. ASSESSMENTS CHRONIC PRESCRIPTION OPIATE USE - Z79.899 (PRIMARY) LUMBAR DISC PROTRUSION - M51.26 RADICULOPATHY, LUMBOSACRAL REGION - M54.17 TREATMENT CHRONIC PRESCRIPTION OPIATE USE LAB: URINE TEST GROUP MARITA SUTHERLAND 11/25/2020 2:51:20 PM > LAST DOSE: GABAPENTIN 11/25/2020, HYDROCODONE 11/25/2020 NOTES: PRINTED AND REVIEW PRE PROCEDURE INFORMATION, PATIENT VERBALIZED UNDERSTANDING AUREA VELIZ . LUMBAR DISC PROTRUSION MED: PAIN NORCO TABLET 5MG/325MG ORALLY HYDROCODONE/ACETAMINOPHEN (ORDERED FOR 12/09/2020) MEDICATION: PAIN VALIUM TAB 5MG ORALLY (DIAZEPAM) (ORDERED FOR 12/09/2020) NOTES: LUMBAR EPIDURAL STERIOD INJECTION. PROCEDURE CODES FA211 ESTABILISHED PATIENT [facility] CHARGE DISPOSITION & COMMUNICATION FOLLOW UP POSTPROCEDURE (REASON: LUMBAR EPIDURAL STERIOD INJECTION) ELECTRONICALLY SIGNED BY ZEHRA VALENCIA ON 11/27/2020 AT 09:55 AM EDT DISCLAIMER : THIS IS A VISIT SUMMARY EXTRACTED FROM THE [facility] CH[facility]. IT IS NOT A COPY OF THE [facility] PROGRESS NOTE. [facility]
== END ==
LOC: M PAIN 14:15
PROVIDERS: ATTEND Nurse Practitioner Family
DX: M54.17 Radiculopathy, lumbosacral region (principal); G89.29 Other chronic pain; J44.9 Chronic obstructive pulmonary disease, unspecified; Z87.891 Personal history of nicotine dependence; Z79.891 Long term (current) use of opiate analgesic; Z79.899 Other long term (current) drug therapy

== ENCOUNTER → 2020-12-07 | Outpatient (CLI) | payer BC | LOC: M LABSMTC 09:14 | PROVIDERS: ATTEND Anesthesiology | DX: Z20.822 Contact with and (suspected) exposure to COVID-19 (principal) ==

== ENCOUNTER → 2020-12-12 | Outpatient (CLI) | payer BC ==
[~2020-12-12] MED LIST changes: +ISOVUE-M 300 61% 15ML VIAL As Ordered ONE; +LIDOCAINE 1% SDV 30ML VIAL As Ordered ONE; +NORCO, ANEXSIA 5/325MG TABLET (HYDROcodone/ACETAMINOPHEN) As Ordered ONE; +diazePAM 5MG TABLET As Ordered ONE; +methylPREDNISolone SUSP 40MG/ML 1ML VIAL (DEPO MEDROL) As Ordered ONE
--- NOTE | 2020-12-12 10:43 | REP ---
INDICATION: LUMBAR EPIDURAL STEROID INJECTION. COMPARISON: None. TECHNIQUE: Two views. 6.5 seconds of fluoroscopy time is reported. FINDINGS: A sequence of 2 last image hold fluoroscopically obtained spot radiograph(s) of the lumbar spine document(s) needle position(s) and contrast injection associated with injection procedure. IMPRESSION: Procedural imaging. <Electronically signed by Gualberto Jimenes > 12/12/20 2843
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
== END ==
LOC: M PAIN 08:30
PROVIDERS: ATTEND Anesthesiology
DX: M48.061 Spinal stenosis, lumbar region without neurogenic claudication (principal); J44.9 Chronic obstructive pulmonary disease, unspecified; I10 Essential (primary) hypertension; Z87.891 Personal history of nicotine dependence; Z79.891 Long term (current) use of opiate analgesic; Z79.899 Other long term (current) drug therapy
CPT/HCPCS: 62323; J1030; Q9967

== ENCOUNTER → 2020-12-26 | Outpatient (CLI) | payer BC ==
[~2020-12-26] MED LIST changes: -ISOVUE-M 300 61% 15ML VIAL As Ordered ONE; -LIDOCAINE 1% SDV 30ML VIAL As Ordered ONE; -NORCO, ANEXSIA 5/325MG TABLET (HYDROcodone/ACETAMINOPHEN) As Ordered ONE; -diazePAM 5MG TABLET As Ordered ONE; -methylPREDNISolone SUSP 40MG/ML 1ML VIAL (DEPO MEDROL) As Ordered ONE
== END ==
LOC: M PAIN 10:15
PROVIDERS: ATTEND Anesthesiology
DX: G89.29 Other chronic pain (principal); M51.16 Intervertebral disc disorders with radiculopathy, lumbar region; M48.062 Spinal stenosis, lumbar region with neurogenic claudication; J44.9 Chronic obstructive pulmonary disease, unspecified; I10 Essential (primary) hypertension; Z90.2 Acquired absence of lung [part of]; Z79.891 Long term (current) use of opiate analgesic; Z79.899 Other long term (current) drug therapy; Z87.891 Personal history of nicotine dependence

== ENCOUNTER → 2021-01-10 | Outpatient (CLI) | payer BC ==
--- NOTE | 2021-01-10 11:42 | REP ---
INDICATION: SCREENING. COMPARISON: 03/28/2012 a standard contrast-enhanced exam. TECHNIQUE: Axial noncontrast images from the thoracic inlet to the upper abdomen using low-dose lung screening technique (LDCT). As per the protocol only lung window images were sent to the read station for interpretation. FINDINGS: There is minimal stable biapical pleuroparenchymal scarring. There are a few scattered areas of pleural thickening and calcification on the left. There is a 3 mm size nodule in the right upper lobe. This represents a change from the prior exam. Incidental bilateral calcified granulomas are noted. Grossly, the mediastinum and pulmonary edelmira are stable. Grossly, the imaged upper abdomen and imaged osseous structures are stable IMPRESSION: There is a 3 mm size nodule in the right upper lobe. According to the revised Fleischner society criteria this represents a lung rads category 2 lesion for which a 1 year follow-up CT is recommended. There are other chronic changes as described above. <Electronically signed by Kumar Craig > 01/10/21 [id number]
== END ==
LOC: M RAD 10:15
PROVIDERS: ATTEND Family Medicine
DX: Z12.2 Encounter for screening for malignant neoplasm of respiratory organs (principal); R91.1 Solitary pulmonary nodule; Z87.891 Personal history of nicotine dependence

== ENCOUNTER → 2021-01-22 | Outpatient (CLI) | payer BC ==
[~2021-01-22] MED LIST changes: -AMLO1TAB24; +AMLO1TAB24 PO; +EXCETAB33 PO; +GABA-282 PO; +HYDR-3713 PO; +VIAG100T PO
== END ==
LOC: M LABSMTC 09:35
PROVIDERS: ATTEND Anesthesiology
DX: Z01.818 Encounter for other preprocedural examination (principal); Z20.822 Contact with and (suspected) exposure to COVID-19

== ENCOUNTER → 2021-01-22 | Outpatient (CLI) | payer BC ==
[2021-01-22 13:36] LABS: BLOOD UREA NITROGEN 12 MG/DL (7-18); CALCIUM LEVEL 9.5 MG/DL (8.5-10.1); CARBON DIOXIDE LEVEL 31 MEQ/L (21-32); CHLORIDE LEVEL 105 MEQ/L (98-107); CHOLESTEROL LEVEL 245 MG/DL (<200); CHOLESTEROL RISK RATIO 4.224 (<5); CREATININE FOR GFR 0.89 MG/DL (0.70-1.30); GLOMERULAR FILTRATION RATE > 60.0 (>56); GLUCOSE, FASTING 97 MG/DL (70-100); HDL CHOLESTEROL 58 MG/DL (>40); LDL CHOLESTEROL 150 MG/DL (<100); NON-HDL-C 187 MG/DL; POTASSIUM SERUM 4.4 MEQ/L (3.5-5.1); SODIUM LEVEL 140 MEQ/L (136-145); TRIGLYCERIDES LEVEL 186 MG/DL (<150)
== END ==
LOC: M PLALAB 09:21
PROVIDERS: ATTEND Family Medicine
DX: Z13.220 Encounter for screening for lipoid disorders (principal); I11.9 Hypertensive heart disease without heart failure

== ENCOUNTER → 2021-01-22 | Outpatient (CLI) | payer BC ==
--- NOTE | 2021-01-22 11:21 | REP ---
INDICATION: SPINAL STENOSIS, LUMBAR REGION WITH NEUROGENIC CLAUDICATION. COMPARISON: Comparison lumbar spine radiographs May 15, 2019. TECHNIQUE: 7 views including flexion extension upright lateral views. FINDINGS: Lumbar vertebral body heights are preserved. Alignment is normal on lateral radiograph. There is degenerative disc disease diffusely at each lumbar level. Least pronounced is L5-S1. Flexion extension view show no subluxation or instability. There is no evidence of spondylolysis or spondylolisthesis. There is osteoarthritic facet sclerosis and hypertrophy bilaterally at L5-S1 and L4-5, right more so than left. There is a dextroconvex curvature in the lumbar spine on the AP view. These findings are essentially unchanged from the May 15, 2019 prior study. No bony destructive lesion. Psoas margins are symmetric. Sacrum and SI joints are intact. There is some vascular calcification in a normal caliber aorta. IMPRESSION: Degenerative disc and osteoarthritic facet changes. Mild dextroconvex curvature. Findings essentially unchanged. <Electronically signed by Gualberto Jimenes > 01/22/21 [id number]
== END ==
LOC: M PLAIMG 09:17
PROVIDERS: ATTEND Anesthesiology
DX: M48.062 Spinal stenosis, lumbar region with neurogenic claudication (principal)

== ENCOUNTER → 2021-01-24 | Outpatient (CLI) | payer BC | LOC: M LABSMTC 09:26 | PROVIDERS: ATTEND Anesthesiology | DX: Z01.812 Encounter for preprocedural laboratory examination (principal); Z20.822 Contact with and (suspected) exposure to COVID-19 ==

== ENCOUNTER → 2021-01-27 | Outpatient (CLI) | payer BC ==
[~2021-01-27] MED LIST changes: +BUPIVACAINE HCL 0.25% 30ML VIAL As Ordered ONE; +ISOVUE-M 300 61% 15ML VIAL As Ordered ONE; +LIDOCAINE 1% SDV 30ML VIAL As Ordered ONE; +dexameTHASONE 10MG/1ML VIAL PRES.FREE (J1100 PER 1MG) As Ordered ONE; +diazePAM 5MG TABLET As Ordered ONE; +oxyCODONE 5MG TAB As Ordered ONE
--- NOTE | 2021-01-27 15:59 | REP ---
INDICATION: TRANSFORAMINAL EPIDURAL. COMPARISON: None. TECHNIQUE: Multiple C-arm views lumbar spine. FINDINGS: [place] are seen along the lower lumbar spine. IMPRESSION: 64 seconds of fluoroscopy time utilized. <Electronically signed by Amos Garnett > 01/27/21 [id number]
== END ==
LOC: M PAIN 13:45
PROVIDERS: ATTEND Anesthesiology
DX: M51.16 Intervertebral disc disorders with radiculopathy, lumbar region (principal); J44.9 Chronic obstructive pulmonary disease, unspecified; I10 Essential (primary) hypertension; Z87.891 Personal history of nicotine dependence; Z79.891 Long term (current) use of opiate analgesic; Z79.899 Other long term (current) drug therapy
CPT/HCPCS: 64483; 64484; J1100; Q9967

== ENCOUNTER 2021-01-29 11:14 | Day surgery (SDC) | payer BC ==
[~2021-01-29] VITALS: Ht 170.2 cm; Wt 67.6 kg
[~2021-01-29 11:14] MED LIST changes: -BUPIVACAINE HCL 0.25% 30ML VIAL As Ordered ONE; -ISOVUE-M 300 61% 15ML VIAL As Ordered ONE; -LIDOCAINE 1% SDV 30ML VIAL As Ordered ONE; +NS 1,000 ML IV SCH; -dexameTHASONE 10MG/1ML VIAL PRES.FREE (J1100 PER 1MG) As Ordered ONE; -diazePAM 5MG TABLET As Ordered ONE; -oxyCODONE 5MG TAB As Ordered ONE
--- NOTE | 2021-01-29 13:13 | ROOR ---
Patient Name: Blas Curry Procedure Date: 01/29/2021 12:45 PM Date of : 1970 Age: 50 Room: [facility] Gender: Male Note Status: Finalized Procedure: Colonoscopy Indications: Screening for colorectal malignant neoplasm Providers: Amos Garcia DO Referring MD: Toya MCKNIGHT DO Requesting Provider: Medicines: Propofol per Anesthesia Complications: No immediate complications. Procedure: Pre-Anesthesia Assessment: - Prior to the procedure, a History and Physical was performed, and patient medications and allergies were reviewed. The patient is competent. The risks and benefits of the procedure and the sedation options and risks were discussed with the patient. All questions were answered and informed consent was obtained. Patient identification and proposed procedure were verified by the physician, the nurse, the anesthesiologist and the certified ophthalmic medical technician in the endoscopy suite. Mental Status Examination: alert and oriented. Airway Examination: normal oropharyngeal airway and neck mobility. Respiratory Examination: clear to auscultation. CV Examination: normal. Prophylactic Antibiotics: The patient does not require prophylactic antibiotics. Prior Anticoagulants: The patient has taken no previous anticoagulant or antiplatelet agents. ASA Grade Assessment: II - A patient with mild systemic disease. After reviewing the risks and benefits, the patient was deemed in satisfactory condition to undergo the procedure. The anesthesia plan was to use monitored anesthesia care (MAC). Immediately prior to administration of medications, the patient was re-assessed for adequacy to receive sedatives. The heart rate, respiratory rate, oxygen saturations, blood pressure, adequacy of pulmonary ventilation, and response to care were monitored throughout the procedure. The physical status of the patient was re-assessed after the procedure. The Colonoscope was introduced through the anus and advanced to the cecum, identified by appendiceal orifice and ileocecal valve. The colonoscopy was performed without difficulty. The patient tolerated the procedure well. Findings: Multiple small and large-mouthed diverticula were found in the sigmoid colon. Three hyperplastic polyps were found in the rectum and sigmoid colon. The polyps were 2 to 6 mm in size. These polyps were removed with a jumbo cold forceps. Resection and retrieval were complete. Estimated blood loss was minimal. A 13 mm polyp was found in the cecum. The polyp was carpet-like. The polyp was removed with a hot snare. Resection and retrieval were complete. Estimated blood loss was minimal. Impression: - Diverticulosis in the sigmoid colon. - Three 2 to 6 mm polyps in the rectum and in the sigmoid colon, removed with a jumbo cold forceps. Resected and retrieved. - One 13 mm polyp in the cecum, removed with a hot snare. Resected and retrieved. Recommendation: - Patient has a contact number available for emergencies. The signs and symptoms of potential delayed complications were discussed with the patient. Return to normal activities tomorrow. Written discharge instructions were provided to the patient. - Await pathology results. - Repeat colonoscopy in 3 - 5 years for surveillance based on pathology results. - Return to my office at appointment to be scheduled. Procedure Code(s): --- Professional --- 12387, Colonoscopy, flexible; with removal of tumor(s), polyp(s), or other lesion(s) by snare technique 92078, 59, Colonoscopy, flexible; with biopsy, single or multiple Diagnosis Code(s): --- Professional --- Z12.11, Encounter for screening for malignant neoplasm of colon K62.1, Rectal polyp K63.5, Polyp of colon K57.30, Diverticulosis of large intestine without perforation or abscess without bleeding CPT copyright 2019 [employer]. All rights reserved. The codes documented in this report are preliminary and upon label coder review may be revised to meet current compliance requirements. Amos Garcia DO 01/29/2021 1:12:37 PM Electronically signed by Amos Garcia DO Number of Addenda: 0 Note Initiated On: 01/29/2021 12:45 PM Estimated Blood Loss: Estimated blood loss was minimal.
[2021-01-29 13:30] VITALS: BP 132/87
== END 2021-01-29 13:47 | disposition home or self-care (01) ==
LOC: M OPP 11:14
PROVIDERS: ATTEND Surgery
DX: Z12.11 Encounter for screening for malignant neoplasm of colon (principal); K63.5 Polyp of colon; K62.1 Rectal polyp; K57.30 Diverticulosis of large intestine without perforation or abscess without bleeding; J44.9 Chronic obstructive pulmonary disease, unspecified; Z79.891 Long term (current) use of opiate analgesic; Z79.899 Other long term (current) drug therapy; Z87.891 Personal history of nicotine dependence

== ENCOUNTER → 2021-03-28 | Outpatient (CLI) | payer BC ==
[~2021-03-28] MED LIST changes: -NS 1,000 ML IV SCH
--- NOTE | 2021-03-28 12:30 | REP ---
INDICATION: BACK PAIN. COMPARISON: None. TECHNIQUE: Single-view from C-arm fluoroscopy provided to Dr. Castro of the pain clinic. FINDINGS: Single view shows a midline needle at the level of the superior endplate of L1 at the T12-L1 disc level. No contrast seen on this image. IMPRESSION: Fluoroscopic guided needle procedure at the T12-L1 level with single image provided. Fluoroscopy time: 8.3 seconds. <Electronically signed by Piter English > 03/28/21 [id number]
== END ==
LOC: M PAIN 09:30
PROVIDERS: ATTEND Anesthesiology
DX: G89.29 Other chronic pain (principal); M47.816 Spondylosis without myelopathy or radiculopathy, lumbar region; M47.817 Spondylosis without myelopathy or radiculopathy, lumbosacral region; J44.9 Chronic obstructive pulmonary disease, unspecified; I10 Essential (primary) hypertension; Z79.891 Long term (current) use of opiate analgesic; Z79.899 Other long term (current) drug therapy; Z87.891 Personal history of nicotine dependence
CPT/HCPCS: 76000; G0463

== ENCOUNTER → 2021-05-22 | Outpatient (CLI) | payer BC | LOC: M LABSMTC 10:02 | PROVIDERS: ATTEND Anesthesiology | DX: Z01.818 Encounter for other preprocedural examination (principal); Z11.52 Encounter for screening for COVID-19 ==

== ENCOUNTER → 2021-05-27 | Outpatient (CLI) | payer BC ==
[~2021-05-27] MED LIST changes: +BUPIVACAINE HCL 0.25% 30ML VIAL As Ordered ONE; +ISOVUE-M 300 61% 15ML VIAL As Ordered ONE; +LIDOCAINE 1% SDV 30ML VIAL As Ordered ONE
== END ==
LOC: M PAIN 09:20
PROVIDERS: ATTEND Anesthesiology
DX: M47.815 Spondylosis without myelopathy or radiculopathy, thoracolumbar region (principal); M47.816 Spondylosis without myelopathy or radiculopathy, lumbar region; J44.9 Chronic obstructive pulmonary disease, unspecified; I10 Essential (primary) hypertension; Z87.891 Personal history of nicotine dependence; Z79.891 Long term (current) use of opiate analgesic; Z79.899 Other long term (current) drug therapy
CPT/HCPCS: 64490; 64494; Q9967

== ENCOUNTER → 2021-06-18 | Outpatient (CLI) | payer BC ==
[~2021-06-18] MED LIST changes: -BUPIVACAINE HCL 0.25% 30ML VIAL As Ordered ONE; -ISOVUE-M 300 61% 15ML VIAL As Ordered ONE; -LIDOCAINE 1% SDV 30ML VIAL As Ordered ONE
== END ==
LOC: M PAIN 09:30
PROVIDERS: ATTEND Anesthesiology
DX: M47.816 Spondylosis without myelopathy or radiculopathy, lumbar region (principal); J44.9 Chronic obstructive pulmonary disease, unspecified; I10 Essential (primary) hypertension; Z79.891 Long term (current) use of opiate analgesic; Z87.891 Personal history of nicotine dependence; Z79.899 Other long term (current) drug therapy

== ENCOUNTER → 2021-06-23 | Outpatient (REF) | payer BC ==
[2021-06-23 17:12] LABS: ALBUMIN 4.2 GM/DL (3.2-5.2); BILIRUBIN,DIRECT 0.2 MG/DL (0.0-0.2); BILIRUBIN,TOTAL 1.1 MG/DL (0.2-1.0); TOTAL PROTEIN 7.5 GM/DL (6.4-8.2)
== END ==
LOC: M SFHCCLAY 10:14
PROVIDERS: ATTEND Family Medicine
DX: B35.1 Tinea unguium (principal)

== ENCOUNTER → 2021-07-25 | Outpatient (CLI) | payer BC | LOC: M PAIN 11:45 | PROVIDERS: ATTEND Anesthesiology | DX: M47.816 Spondylosis without myelopathy or radiculopathy, lumbar region (principal); J44.9 Chronic obstructive pulmonary disease, unspecified; I10 Essential (primary) hypertension; Z79.891 Long term (current) use of opiate analgesic; Z79.899 Other long term (current) drug therapy ==

== ENCOUNTER → 2021-10-09 | Outpatient (CLI) | payer BC ==
[~2021-10-09] MED LIST changes: +EXCETAB32 PO; -EXCETAB33 PO
== END ==
LOC: M PAIN 13:45
PROVIDERS: ATTEND Anesthesiology
DX: M51.16 Intervertebral disc disorders with radiculopathy, lumbar region (principal); M51.17 Intervertebral disc disorders with radiculopathy, lumbosacral region; Z79.899 Other long term (current) drug therapy; Z79.891 Long term (current) use of opiate analgesic; Z87.891 Personal history of nicotine dependence

== ENCOUNTER → 2021-10-29 | Outpatient (CLI) | payer BC ==
[~2021-10-29] MED LIST changes: +TERB250T91 PO
== END ==
LOC: M LABSMTC 09:26
PROVIDERS: ATTEND Anesthesiology
DX: Z01.812 Encounter for preprocedural laboratory examination (principal)

== ENCOUNTER → 2021-10-31 | Outpatient (CLI) | payer BC ==
[~2021-10-31] MED LIST changes: +BUPIVACAINE HCL 0.25% 30ML VIAL As Ordered ONE; +ISOVUE-M 300 61% 15ML VIAL As Ordered ONE; +LIDOCAINE 1% SDV 30ML VIAL As Ordered ONE; +dexameTHASONE 10MG/1ML VIAL PRES.FREE (J1100 PER 1MG) As Ordered ONE; +diazePAM 5MG TABLET As Ordered ONE; +diazePAM 5MG TABLET PO ONE; +oxyCODONE 5MG TAB As Ordered ONE; +oxyCODONE 5MG TAB PO ONE
[2021-10-31 16:15] VITALS: BP 124/87
== END ==
LOC: M IRPRO 13:28
PROVIDERS: ATTEND Anesthesiology
DX: M51.16 Intervertebral disc disorders with radiculopathy, lumbar region (principal); G89.29 Other chronic pain; J44.9 Chronic obstructive pulmonary disease, unspecified; Z86.59 Personal history of other mental and behavioral disorders
CPT/HCPCS: 64483; 64484; J1100; Q9967

== ENCOUNTER → 2021-11-12 | Outpatient (CLI) | payer BC ==
[~2021-11-12] MED LIST changes: -BUPIVACAINE HCL 0.25% 30ML VIAL As Ordered ONE; -ISOVUE-M 300 61% 15ML VIAL As Ordered ONE; -LIDOCAINE 1% SDV 30ML VIAL As Ordered ONE; -dexameTHASONE 10MG/1ML VIAL PRES.FREE (J1100 PER 1MG) As Ordered ONE; -diazePAM 5MG TABLET As Ordered ONE; -diazePAM 5MG TABLET PO ONE; -oxyCODONE 5MG TAB As Ordered ONE; -oxyCODONE 5MG TAB PO ONE
== END ==
LOC: M PAIN 11:00
PROVIDERS: ATTEND Anesthesiology
DX: M51.16 Intervertebral disc disorders with radiculopathy, lumbar region (principal); M47.816 Spondylosis without myelopathy or radiculopathy, lumbar region; J44.9 Chronic obstructive pulmonary disease, unspecified; I10 Essential (primary) hypertension; Z90.2 Acquired absence of lung [part of]; Z87.891 Personal history of nicotine dependence; Z79.891 Long term (current) use of opiate analgesic; Z79.899 Other long term (current) drug therapy

== ENCOUNTER → 2021-11-26 | Outpatient (CLI) | payer BC | LOC: M SOG 07:58 | PROVIDERS: ATTEND Orthopaedic Surgery | DX: Z47.89 Encounter for other orthopedic aftercare (principal); M41.9 Scoliosis, unspecified; M25.78 Osteophyte, vertebrae ==

== ENCOUNTER → 2022-05-27 | Outpatient (REF) | payer BC ==
[2022-05-28 13:22] LABS: HEMOGLOBIN 15.1 g/dl (13.5-17.5); MEAN CORPUSCULAR HEMOGLOBIN 32.7 pg (27.0-33.0); MEAN CORPUSCULAR HGB CONC 33.6 g/dl (32.0-36.5); MEAN CORPUSCULAR VOLUME 97.4 fl (80.0-96.0); PLATELET COUNT, AUTOMATED 239 10^3/uL (150-450); RED BLOOD COUNT 4.62 10^6/uL (4.30-6.10); WHITE BLOOD COUNT 6.3 10^3/uL (4.0-10.0)
[2022-05-28 13:47] LABS: ALBUMIN 4.4 G/DL (3.2-5.2); ALKALINE PHOSPHATASE 56 U/L (46-116); ALT/SGPT 22 U/L (7.0-40); AST/SGOT 17 U/L (<34); BILIRUBIN,TOTAL 2.4 MG/DL (0.3-1.2); BLOOD UREA NITROGEN 13 MG/DL (9-23); CALCIUM LEVEL 9.8 MG/DL (8.5-10.1); CARBON DIOXIDE LEVEL 26 MMOL/L (20-31); CHLORIDE LEVEL 102 MMOL/L (98-107); CREATININE FOR GFR 0.83 MG/DL (0.70-1.30); GLOMERULAR FILTRATION RATE > 60.0 (>56); GLUCOSE, FASTING 90 MG/DL (60-100); POTASSIUM SERUM 4.1 MMOL/L (3.5-5.1); SODIUM LEVEL 140 MMOL/L (136-145); TOTAL PROTEIN 7.5 G/DL (5.7-8.2)
== END ==
LOC: M SFHCCLAY 11:25
PROVIDERS: ATTEND Family Medicine
DX: R10.13 Epigastric pain (principal)

== ENCOUNTER → 2022-06-10 | Outpatient (CLI) | payer BC ==
[~2022-06-10] MED LIST changes: +GASTROGRAFIN SOLUTION 30ML As Ordered ONE; +ISOVUE-370 76% 100ML VIAL As Ordered ONE
== END ==
LOC: M RAD 14:58
PROVIDERS: ATTEND Family Medicine
DX: K57.30 Diverticulosis of large intestine without perforation or abscess without bleeding (principal); R10.13 Epigastric pain

== ENCOUNTER → 2022-07-10 | Outpatient (REF) | payer BC ==
[~2022-07-10] MED LIST changes: -GASTROGRAFIN SOLUTION 30ML As Ordered ONE; -ISOVUE-370 76% 100ML VIAL As Ordered ONE
[2022-07-10 14:22] LABS: CLOSTRIDIUM DIFFICILE PCR NEGATIVE (NEGATIVE)
== END ==
LOC: M LAB REF 12:19
PROVIDERS: ATTEND Internal Medicine Gastroenterology
DX: K52.9 Noninfective gastroenteritis and colitis, unspecified (principal)

== ENCOUNTER → 2022-07-27 | Outpatient (CLI) | payer BC ==
[~2022-07-27] MED LIST changes: +OMEP40CA4 PO; +ONE1TAB2 PO
== END ==
LOC: M LABSMTC 08:51
PROVIDERS: ATTEND Anesthesiology
DX: Z01.812 Encounter for preprocedural laboratory examination (principal); Z11.52 Encounter for screening for COVID-19

== ENCOUNTER 2022-07-30 10:20 | Day surgery (SDC) | payer BC ==
[~2022-07-30] VITALS: Ht 170.2 cm; Wt 63.0 kg
[~2022-07-30 10:20] MED LIST changes: +LIDOCAINE 2% 100MG/5ML SDV (FOR ANES.) As Ordered ONE; +NS 1,000 ML IV ONE; +propofoL 200 MG/20 ML VIAL As Ordered ONE
[2022-07-30] MEDS ORDERED: fentaNYL 100 MCG/2 ML INJECTION As Ordered ONE (12:26)
[2022-07-30 13:24] VITALS: BP 161/93
== END 2022-07-30 14:15 | disposition home or self-care (01) ==
LOC: M OPP 10:20
PROVIDERS: ATTEND Internal Medicine Gastroenterology
DX: D12.6 Benign neoplasm of colon, unspecified (principal); K57.30 Diverticulosis of large intestine without perforation or abscess without bleeding; K64.4 Residual hemorrhoidal skin tags; K64.8 Other hemorrhoids; K52.9 Noninfective gastroenteritis and colitis, unspecified; Z80.0 Family history of malignant neoplasm of digestive organs; K22.89 Other specified disease of esophagus; K44.9 Diaphragmatic hernia without obstruction or gangrene; K29.70 Gastritis, unspecified, without bleeding; J44.9 Chronic obstructive pulmonary disease, unspecified; G43.909 Migraine, unspecified, not intractable, without status migrainosus; I10 Essential (primary) hypertension; Z79.891 Long term (current) use of opiate analgesic; Z79.899 Other long term (current) drug therapy
CPT/HCPCS: 43239; 45380; 88305; J3010

== ENCOUNTER → 2023-08-03 | Outpatient (CLI) | payer BC ==
[~2023-08-03] MED LIST changes: -GABA-283; +GABA-284; -LIDOCAINE 2% 100MG/5ML SDV (FOR ANES.) As Ordered ONE; -NS 1,000 ML IV ONE; -propofoL 200 MG/20 ML VIAL As Ordered ONE
== END ==
LOC: M RAD 20:54
PROVIDERS: ATTEND Family Medicine
DX: Z12.2 Encounter for screening for malignant neoplasm of respiratory organs (principal); F17.210 Nicotine dependence, cigarettes, uncomplicated; Z53.9 Procedure and treatment not carried out, unspecified reason

== ENCOUNTER → 2023-11-19 | Outpatient (CLI) | payer BC, OTHER | LOC: M RAD 07:47 | PROVIDERS: ATTEND Physician Assistant | DX: I10 Essential (primary) hypertension (principal) ==

== ENCOUNTER → 2023-11-26 | Outpatient (REF) | payer BC, OTHER ==
[2023-11-26 13:42] LABS: ALBUMIN 4.2 G/DL (3.2-5.2); ALKALINE PHOSPHATASE 55 U/L (46-116); ALT/SGPT 22 U/L (7.0-40); AST/SGOT 11 U/L (<34); BILIRUBIN,TOTAL 1.5 MG/DL (0.3-1.2); BLOOD UREA NITROGEN 15 MG/DL (9-23); CALCIUM LEVEL 9.3 MG/DL (8.5-10.1); CARBON DIOXIDE LEVEL 32 MMOL/L (20-31); CHLORIDE LEVEL 101 MMOL/L (98-107); CHOLESTEROL LEVEL 209 MG/DL (<200); CREATININE FOR GFR 0.88 MG/DL (0.70-1.30); GLOMERULAR FILTRATION RATE > 60.0 (>56); GLUCOSE, FASTING 96 MG/DL (60-100); LDL CHOLESTEROL 127.2 MG/DL (<100); POTASSIUM SERUM 4.3 MMOL/L (3.5-5.1); SODIUM LEVEL 138 MMOL/L (136-145); TOTAL PROTEIN 7.1 G/DL (5.7-8.2); TRIGLYCERIDES LEVEL 119 MG/DL (<150)
== END ==
LOC: M SFHCCLAY 07:29
PROVIDERS: ATTEND Physician Assistant
DX: Z00.00 Encounter for general adult medical examination without abnormal findings (principal); I11.9 Hypertensive heart disease without heart failure; Z90.2 Acquired absence of lung [part of]

== ENCOUNTER → 2023-12-22 | Outpatient (CLI) | payer BC, OTHER | LOC: M RAD 14:55 | PROVIDERS: ATTEND Family Medicine | DX: Z12.2 Encounter for screening for malignant neoplasm of respiratory organs (principal); F17.210 Nicotine dependence, cigarettes, uncomplicated ==

== ENCOUNTER → 2024-02-23 | Outpatient (REF) | payer BC, OTHER ==
[~2024-02-23] MED LIST changes: +GABA-1172 PO; -GABA-282 PO
== END ==
LOC: M SFHCCLAY 16:14
PROVIDERS: ATTEND Family Medicine
DX: K52.9 Noninfective gastroenteritis and colitis, unspecified (principal)

== ENCOUNTER → 2024-02-29 | Outpatient (REF) | payer BC, OTHER | LOC: M SFHCCLAY 11:48 | PROVIDERS: ATTEND Family Medicine | DX: K52.9 Noninfective gastroenteritis and colitis, unspecified (principal) ==

== ENCOUNTER → 2024-05-18 | Outpatient (CLI) | payer BC, OTHER | LOC: M CLY 15:40 | PROVIDERS: ATTEND Physician Assistant | DX: S69.92XA Unspecified injury of left wrist, hand and finger(s), initial encounter (principal); W18.30XA Fall on same level, unspecified, initial encounter; Y92.009 Unspecified place in unspecified non-institutional (private) residence as the place of occurrence of the external cause ==

== ENCOUNTER 2024-05-26 06:50 | Day surgery (SDC) | payer BC, OTHER ==
[~2024-05-26] VITALS: Ht 170.2 cm; Wt 62.4 kg
[~2024-05-26 06:50] MED LIST changes: +NEBI10TA2 PO; +SPIR1TAB34 PO
[2024-05-26] MEDS ORDERED: PRED10PA PO (07:15)
[2024-05-26] MEDS ORDERED: propofoL 200 MG/20 ML VIAL As Ordered ONE (07:59)
[2024-05-26] MEDS ORDERED: GLYCOPYRROLATE INJ 0.2 MG/ML 2 ML VIAL As Ordered ONE (08:00)
[2024-05-26] MEDS ORDERED: LIDOCAINE 2% 100MG/5ML SDV (FOR ANES.) As Ordered ONE (08:00)
[2024-05-26] MEDS ORDERED: LIDOCAINE 2% JELLY 6ML SYRINGE As Ordered ONE (08:00)
[2024-05-26 08:09] VITALS: TEMP 98
[2024-05-26 08:33] VITALS: BP 130/84; O2SAT 99
== END 2024-05-26 08:38 | disposition home or self-care (01) ==
LOC: M OPP 06:50
PROVIDERS: ATTEND Surgery
DX: K22.89 Other specified disease of esophagus (principal); K31.89 Other diseases of stomach and duodenum; R10.84 Generalized abdominal pain; Z79.891 Long term (current) use of opiate analgesic; Z79.899 Other long term (current) drug therapy; Z87.891 Personal history of nicotine dependence
CPT/HCPCS: 43239; 88305; J1596

== ENCOUNTER → 2024-06-30 | Outpatient (CLI) | payer BC ==
[~2024-06-30] MED LIST changes: +PRED10PA PO
== END ==
LOC: M RAD 15:30
PROVIDERS: ATTEND Physician Assistant
DX: R91.8 Other nonspecific abnormal finding of lung field (principal)

== ENCOUNTER → 2024-12-13 | Outpatient (REF) | payer BC, OTHER | LOC: M SFHCLERA 17:48 | PROVIDERS: ATTEND Family Medicine | DX: R31.0 Gross hematuria (principal) ==

== ENCOUNTER → 2024-12-18 | Outpatient (REF) | payer BC ==
[2024-12-18 18:30] LABS: ALT/SGPT 22 U/L (7.0-40); AST/SGOT 19 U/L (<34); CALCIUM LEVEL 9.4 MG/DL (8.5-10.1); CARBON DIOXIDE LEVEL 30 MMOL/L (20-31); CHLORIDE LEVEL 104 MMOL/L (98-107); CREATININE FOR GFR 0.77 MG/DL (0.70-1.30); GLOMERULAR FILTRATION RATE > 90.0 (>56); POTASSIUM SERUM 4.4 MMOL/L (3.5-5.1); SODIUM LEVEL 144 MMOL/L (136-145)
[2024-12-18 18:32] LABS: BASO # 0.0 10^3/uL (0.0-0.2); BASO % 0.3 % (0.0-1.0); EOS # 0.0 10^3/uL (0.0-0.5); EOS % 0.2 % (0.0-3.0); LYMPH # 1.0 10^3/uL (1.5-5.0); LYMPH % 17.1 % (24.0-44.0); MONO # 0.4 10^3/uL (0.0-0.8); MONO % 7.1 % (2.0-8.0); NEUTROPHILS # 4.6 10^3/uL (1.5-8.5); NEUTROPHILS % 75.1 % (36.0-66.0); PLATELET COUNT, AUTOMATED 228 10^3/uL (150-450)
== END ==
LOC: M SFHCCLAY 09:51
PROVIDERS: ATTEND Physician Assistant
DX: R36.1 Hematospermia (principal)

== ENCOUNTER 2025-03-21 17:29 | Emergency (ER) | payer BC ==
[~2025-03-21] VITALS: Ht 170.2 cm; Wt 69.5 kg
[2025-03-21 17:31] VITALS: TEMP 98.1
[2025-03-21] MEDS ORDERED: OMEP40CA5 (17:42)
[2025-03-21 18:42] LABS: CALCIUM LEVEL 9.4 MG/DL (8.5-10.1); CARBON DIOXIDE LEVEL 26 MMOL/L (20-31); CHLORIDE LEVEL 104 MMOL/L (98-107); CREATININE FOR GFR 0.88 MG/DL (0.70-1.30); GLOMERULAR FILTRATION RATE > 90.0 (>56); POTASSIUM SERUM 3.7 MMOL/L (3.5-5.1); SODIUM LEVEL 142 MMOL/L (136-145)
[2025-03-21 19:14] VITALS: O2SAT 95
[2025-03-21 19:43] VITALS: BP 172/100
== END 2025-03-21 20:14 | disposition home or self-care (01) ==
LOC: M ED 17:29
DX: I10 Essential (primary) hypertension (principal); J44.9 Chronic obstructive pulmonary disease, unspecified; M54.50 Low back pain, unspecified; F41.9 Anxiety disorder, unspecified; F12.10 Cannabis abuse, uncomplicated; Z79.1 Long term (current) use of non-steroidal anti-inflammatories (NSAID); Z79.899 Other long term (current) drug therapy

== ENCOUNTER → 2025-04-17 | Outpatient (REF) | payer BC ==
[~2025-04-17] MED LIST changes: +OMEP40CA5
[2025-04-17 18:36] LABS: ALT/SGPT 51 U/L (7.0-40); AST/SGOT 41 U/L (<34); CALCIUM LEVEL 10.0 MG/DL (8.5-10.1); CARBON DIOXIDE LEVEL 30 MMOL/L (20-31); CHLORIDE LEVEL 101 MMOL/L (98-107); CHOLESTEROL LEVEL 282 MG/DL (<200); CHOLESTEROL RISK RATIO 4.54 (<5); CREATININE FOR GFR 0.87 MG/DL (0.70-1.30); GLOMERULAR FILTRATION RATE > 90.0 (>56); LDL CHOLESTEROL 197.6 MG/DL (<100); NON-HDL-C 220.0 MG/DL; POTASSIUM SERUM 4.5 MMOL/L (3.5-5.1); PSA SCREENING 5.19 NG/ML (< 4.00); SODIUM LEVEL 139 MMOL/L (136-145); TRIGLYCERIDES LEVEL 112 MG/DL (<150)
[2025-04-17 18:43] LABS: ESTIMATED AVERAGE GLUCOSE 117.0 MG/DL (60-110)
== END ==
LOC: M SFHCLERA 07:07
PROVIDERS: ATTEND Physician Assistant
DX: I10 Essential (primary) hypertension (principal); Z90.2 Acquired absence of lung [part of]; G43.009 Migraine without aura, not intractable, without status migrainosus; K21.00 Gastro-esophageal reflux disease with esophagitis, without bleeding; R91.8 Other nonspecific abnormal finding of lung field; Z12.5 Encounter for screening for malignant neoplasm of prostate
CPT/HCPCS: 80053; 80061; 83036; G0103